=== PATIENT | female | born 1965 | race Caucasian/White ===

== ENCOUNTER 2021-12-11 07:06 | Day surgery (SDC) | payer MEDICARE, MEDICAID, SELFPAY ==
[2021-12-11 07:53] VITALS: BP 131/56; PULSE 95; RESP 18; TEMP 36.3; O2SAT 100; BMI 35.3
[2021-12-11] MEDS: Lactated Ringers 1,000 ML 15 ML IV (08:10)
--- NOTE | 2021-12-11 08:30 | COLBX_PTH ---
PATIENT: WALDO ROMAN LOC: EN U#:[id number] AGE/SX: 56/F ROOM: RE12/11/[address]: Dr. Cullen Arceo MD : 1965 BED: DIS: 12/11/2021 SPEC #: [id number] RECD: 12/11/21 10:36 STATUS: MITA CAGE #: [id number] KINZA: 12/11/21 08:[address]: Cullen Arceo DEPT: SURGICAL PATHOLOGY RECD BY: Diana Cantu Tissues: A - Descending colon B - Cecum, NOS C - Transverse colon D - Sigmoid colon biopsy Procedures: Surgery Specimen Level IV HEADER OPERATION: Colonoscopy ? open access (MAC) PRE-OP DIAGNOSIS: Screening TISSUE SUBMITTED: A ? Polyp at descending colon x3, B ? Cecal polyp x2, C ? Polyps transverse colon x2, D ? Sigmoid colon polyps x2 MICROSCOPIC DIAGNOSIS A. Polyp at descending colon x3, biopsy: Fragments of tubular adenoma (x3). B. Cecal polyp x2, biopsy: Fragments of tubular adenoma. Fragments of fecal material. C. Polyps transverse colon x2, biopsy: Fragments of tubular adenoma. Fragments of fecal material. D. Sigmoid colon polyps x2, biopsy: Hyperplastic polyp. Fragments of fecal material. VIRI:otis 12/12/2021 MICROSCOPIC DESCRIPTION Slides are reviewed. GROSS DESCRIPTION A - Received in fixative is one container labeled with the patient's name and designated polyp at descending colon x3. The specimen consists of multiple irregular fragments of light adams soft tissue that in aggregate measure 1.2 x 0.4 x 0.2 cm. The specimen is totally submitted in one cassette. B - Received in fixative is one container labeled with the patient's name and designated cecal polyps x2. The specimen consists of multiple irregular fragments of light adams soft tissue mixed with fecal material that in aggregate measure 1 x 0.2 x 0.1 cm. The specimen is totally submitted in one cassette. C - Received in fixative is one container labeled with the patient's name and designated transverse colon polyps. The specimen consists of multiple irregular fragments of light adams soft tissue mixed with fecal material that in aggregate measure 1.8 x 1 x 0.3 cm. The specimen is totally submitted in one cassette. D - Received in fixative is one container labeled with the patient's name and designated sigmoid colon polyp x2. The specimen consists of multiple irregular fragments of light adams soft tissue mixed with fecal material that in aggregate measure 1 x 0.5 x 0.3 cm. / SJ:otis 12/11/2021 TC:1 CPT: 67063 x4
--- NOTE | 2021-12-11 08:31 | HP.PCM_ITS ---
HPI - General HPI Narrative WALDO ROMAN, is a 56 F who presents for colonoscopy. The patient's last colonoscopy was about 20 years ago. The patient is having some abdominal pain and upset stomach. Patient does report cancer in her father side of the family. No cancer in the immediate family. PFSH Medical History Aneurysm Anxiety Arthritis Asthma Back pain Chronic cough Colonic polyp CPAP (continuous positive airway pressure) dependence Depression Diabetes Gastric reflux High cholesterol History of edema History of irregular heartbeat History of pain when walking Hypertension Loss of consciousness Multiple sclerosis Multiple sclerosis Post-menopausal Seizures Sleep apnea Smoker Home Medications aspirin 81 mg chewable tablet 81 mg PO DAILY 10/25/21 [History Last Taken Unknown] lisinopril 5 mg tablet 5 mg PO DAILY 10/25/21 [History Last Taken 12/11/21 04:30] metformin 500 mg tablet 1,000 mg PO BID 10/25/21 [History Last Taken Unknown] ocrelizumab 30 mg/mL intravenous solution (Ocrevus) 30 mg IV .Q6MO 10/25/21 [History Last Taken Unknown] atorvastatin 10 mg tablet 10 mg PO DAILY 12/04/21 [History Last Taken Unknown] bupropion HCl 300 mg 24 hr tablet, extended release 300 mg PO DAILY 12/04/21 [History Last Taken Unknown] famotidine 20 mg tablet 20 mg PO DAILY 12/04/21 [History Last Taken Unknown] glipizide 5 mg tablet 5 mg PO DAILY 12/04/21 [History Last Taken Unknown] indapamide 1.25 mg tablet 1.25 mg PO DAILY 12/04/21 [History Last Taken Unknown] lamotrigine 150 mg tablet 150 mg PO DAILY 12/04/21 [History Last Taken Unknown] omeprazole 40 mg capsule,delayed release 40 mg PO DAILY #60 caps 12/11/21 [Rx Last Taken Unknown] Allergy/AdvReac Type Severity Reaction Status Date / Time adhesive tape Allergy Severe Other Verified 12/11/21 07:50 oxycodone [From OxyContin] Allergy Severe Nausea/Vom/ Verified 12/11/21 07:49 Diarrhea Family History (Updated 10/25/21 @ 12:35 by Jami Dodson) Uncle Colon cancer Surgical History (Updated 12/04/21 @ 13:02 by Jessi Garay) History of hysterectomy History of tonsillectomy and adenoidectomy Hx of LASIK Hx of lumpectomy Status post clamping of cerebral aneurysm Tubal ligation status Social History Smoking Status: Current every day smoker tobacco type: cigarettes Past Medical/Surgical History Planned Operation Planned Operative Procedure/s: COLONOSCOPY Previous Hospitalizations/Surgeries HX Hospitalizations: No Any Problems With Anesthesia: No You/Your Family Experience Fever (Hyperthermia) With Anes: No Cholinesterase deficiency: No Cardiovascular Hx Hypertension: Yes (CONTROLLED ON MED) Respiratory Hx Sleep Apnea: Yes (DOESN'T USE) CPAP: No BIPAP: No Hx Respiratory Tract Infection/Cold (presently): No Result (for STOP score): Positive Smoking Status: Current every day smoker Neurological Does patient have nerve stimulator: No Reproduction : No Miscellaneous Recent Exposure to Contagious Disease: No Allergies adhesive tape Allergy (Severe, Verified 12/11/21 07:50) Other skin irritation oxycodone [From OxyContin] Allergy (Severe, Verified 12/11/21 07:49) Nausea/Vom/Diarrhea Discharge Is Pt Admitted From a [facility], or a [place] [facility]: No After D/C, Where Do you Plan to Go: Return Home Vital Signs Vital Signs Vital Signs: 12/11/21 07:51 12/11/21 07:53 Temperature 97.3 F L Temperature Source Temporal Pulse Rate 95 Respiratory Rate 18 Respiratory Pattern Normal Blood Pressure 131/56 H Blood Pressure Mean 81 Blood Pressure Source Monitor Blood Pressure Position Semi-Fowlers Blood Pressure Location Right Arm Pulse Ox 100 Oxygen Delivery Method Room Air Weight Weight: 193 lb Body Mass Index (BMI) 35.3 Physical Exam Const alert and oriented x3 Resp normal respiratory effort and normal air movement Cardio regular rate and regular rhythm GI soft to palpation, non-tender and non-distended Assessment & Plan Assessment/Plan (1) Encounter for screening for malignant neoplasm of colon: PLAN: I explained endoscopy in detail to the patient. I explained the risks including but not limited to stroke or heart attack with anesthesia, perforation of the GI tract, bleeding, infection. I explained that any of these could necessitate further emergency surgery. The patient understands and all questions were answered sufficiently. The patient wishes to proceed with procedure. Cullen Arceo MD Pager: [facility] [address] [place] [address], [address] [place] [address] Office: Surgery Risks - Colonoscopy Risks Include but are not Limited To: Risks include but are not limited to: Bleeding, perforation requiring further surgery, inability to complete colonoscopy requiring barium enema.
[2021-12-11 09:06] LABS: Bedside Glucose 259 mg/dL (74-106)
[2021-12-11 09:25] VITALS: BP 111/64; BP 115/60; PULSE 81; PULSE 83; RESP 15; RESP 16; TEMP 37.1; O2SAT 94; O2SAT 95
--- NOTE | 2021-12-11 09:25 | OP.COLON_ITS ---
Patient Name: Tasneem Castaneda Procedure Date: 12/11/2021 8:28 AM Date of : 1965 Age: 56 Procedure: Colonoscopy Indications: Screening for colorectal malignant neoplasm Providers: Cullen Arceo MD Medicines: Monitored Anesthesia Care Patient Profile: This is a 56 year old female. Refer to note in patient chart for documentation of history and physical. Last Colonoscopy: more than 10 years ago. Complications: No immediate complications. Estimated blood loss: Minimal. Procedure: Pre-Anesthesia Assessment: - Prior to the procedure, a History and Physical was performed, and patient medications and allergies were reviewed. The patient's tolerance of previous anesthesia was also reviewed. The risks and benefits of the procedure and the sedation options and risks were discussed with the patient. All questions were answered, and informed consent was obtained. Prior Anticoagulants: The patient has taken no previous anticoagulant or antiplatelet agents. After reviewing the risks and benefits, the patient was deemed in satisfactory condition to undergo the procedure. After I obtained informed consent, the scope was passed under direct vision. Throughout the procedure, the patient's blood pressure, pulse, and oxygen saturations were monitored continuously. The colonoscope was introduced through the anus and advanced to the cecum, identified by appendiceal orifice and ileocecal valve. The colonoscopy was performed without difficulty. The patient tolerated the procedure well. The quality of the bowel preparation was adequate to identify polyps. Scope In: 8:55:22 AM Scope Withdrawal Time 0 hours 16 minutes 20 seconds Scope Out: 9:20:21 AM Total Procedure Duration Time 0 hours 24 minutes 59 seconds Findings: Nine polyps were found in the rectum, sigmoid colon, descending colon, ascending colon and cecum. These polyps were removed with a hot snare. Resection and retrieval were complete. Impression: - Nine polyps in the rectum, in the sigmoid colon, in the descending colon, in the ascending colon and in the cecum, removed with a hot snare. Resected and retrieved. Recommendation: - Discharge patient to home. - Resume previous diet. - Continue present medications. - Await pathology results. - Repeat colonoscopy in 3 years for surveillance. Procedure Code(s): --- Professional --- 95395, 33, Colonoscopy, flexible; with removal of tumor(s), polyp(s), or other lesion(s) by snare technique Diagnosis Code(s): --- Professional --- Z12.11, Encounter for screening for malignant neoplasm of colon K62.1, Rectal polyp D12.5, Benign neoplasm of sigmoid colon D12.4, Benign neoplasm of descending colon D12.2, Benign neoplasm of ascending colon D12.0, Benign neoplasm of cecum CPT copyright 2017 [employer]. All rights reserved. The codes documented in this report are preliminary and upon picture framer review may be revised to meet current compliance requirements. Cullen Arceo MD 12/11/2021 9:25:01 AM This report has been signed electronically. Number of Addenda: 0 Note Initiated On: 12/11/2021 8:28 AM
[2021-12-11 09:30] VITALS: BP 115/60; BP 123/70; PULSE 74; RESP 15; O2SAT 94
[2021-12-11 09:35] VITALS: BP 115/60; BP 134/73; PULSE 71; RESP 15; O2SAT 97
[2021-12-11 09:40] VITALS: BP 115/60; BP 97/61; PULSE 70; RESP 18; TEMP 36.6; O2SAT 97
== END 2021-12-11 10:15 | disposition home or self-care (01) ==
LOC: EN 07:23 → AC 07:25
PROVIDERS: Visit Provider Surgery
PROC: 0DJD8ZZ Inspection of Lower Intestinal Tract, Via Natural or Artificial Opening Endoscopic (ICD-10-PCS; CPT 45378; principal; 2021-12-11 08:25)
DX: Z12.11 Encounter for screening for malignant neoplasm of colon (principal); D12.0 Benign neoplasm of cecum; D12.3 Benign neoplasm of transverse colon; D12.4 Benign neoplasm of descending colon; D12.5 Benign neoplasm of sigmoid colon; K62.1 Rectal polyp; K30 Functional dyspepsia; E11.9 Type 2 diabetes mellitus without complications; I10 Essential (primary) hypertension; E78.00 Pure hypercholesterolemia, unspecified; F17.210 Nicotine dependence, cigarettes, uncomplicated; Z79.82 Long term (current) use of aspirin; Z79.84 Long term (current) use of oral hypoglycemic drugs; Z79.899 Other long term (current) drug therapy; Z80.0 Family history of malignant neoplasm of digestive organs
CPT/HCPCS: 45385; 82962; 88305; J7120

== ENCOUNTER → 2022-11-14 | Outpatient (CLI) | payer MEDICARE, SELFPAY ==
--- NOTE | 2022-11-14 06:44 | MRI_ITS ---
INDICATION: MS EXAMINATION: MRI - MR Brain WO/W Contrast TECHNIQUE: Multiplanar and multisequence MR images of the brain were obtained without and with gadolinium. IV Contrast Dosage and Agent: 17 mL Clariscan COMPARISON: None. FINDINGS: BRAIN PARENCHYMA: Extensive bilateral white matter FLAIR hyperintensities in a Person''s finger distribution. There are also FLAIR hyperintensities along the corpus callosum. No abnormal enhancement. Susceptibility artifact in the leftward middle fossa, presumably aneurysm clip. No MRI evidence of hemorrhage. No evidence of acute infarct. No intracranial mass or mass effect. There is preservation of the heath/white matter interface. Normal sella turcica, pituitary gland, infundibular stalk, optic chiasm and hypothalamus. Posterior fossa structures are unremarkable. INTERNAL AUDITORY CANALS: The internal auditory canals appear normal. CSF SPACES: Appropriate for age. No hydrocephalus. Basal cisterns are patent. VASCULAR SYSTEM: Normal flow voids in the major intracranial circulation. CALVARIUM, SKULL BASE, PARANASAL SINUSES AND MASTOID AIR CELLS: Prior left pterional craniotomy. ORBITS: Both globes, extraocular muscles, optic nerves and retrobulbar fat appear unremarkable. MRI/Brain W/WO Contrast IMPRESSION: Extensive bilateral Person''s finger and corpus callosum white matter FLAIR hyperintensities are compatible with given diagnosis of multiple sclerosis. No enhancement to suggest acute demyelination. The optic nerves are not well assessed due to motion. Electronically Signed: Glenn Carcamo MD at 18:56 EDT ,
--- NOTE | 2022-11-14 06:44 | MRI_ITS ---
ACR Level 3 findings have been noted. An addendum which confirms receipt of the report will follow. INDICATION: MS EXAMINATION: MRI - MR Spine Cervical WO/W Contrast TECHNIQUE: Multiplanar and multisequence MR images of the cervical spine were performed. IV Contrast Dosage and Agent: None. COMPARISON: None. FINDINGS: VERTEBRAE: Normal vertebral bodies and posterior elements. VERTEBRAL ALIGNMENT: Normal, including the craniocervical junction and cervicothoracic junction. No spondylolisthesis. There is preservation of the normal cervical lordosis. CERVICAL SPINAL CORD: Unremarkable in signal and morphology. C2/C3: Normal disc height and morphology. Normal spinal canal and neuroforamina. C3/C4: Disc bulge. Normal spinal canal and neuroforamina. C4/C5: Disc bulge. Normal spinal canal and neuroforamina. C5/C6: Disc bulge. Normal spinal canal and neuroforamina. C6/C7: Disc bulge. Normal spinal canal and neuroforamina. C7/T1: Normal disc height and morphology. Normal spinal canal and neuroforamina. NECK SOFT TISSUES: Left thyroid nodules measure up to at least 1.1 cm. No prevertebral soft tissue swelling. There is no cervical adenopathy. MRI/Spine Cervical W/WO Contrast IMPRESSION: Left thyroid nodules measure up to at least 1.1 cm. Correlate with thyroid ultrasound. No abnormal signal in the cervical spinal cord. Multilevel disc bulge without neural foraminal or significant spinal canal stenosis. Electronically Signed: Glenn Carcamo MD at 20:43 EDT ,
[2022-11-14 12:14] LABS: CREATININE FINGERSTICK < 0.9 mg/dL (0.55-1.02); EGFR FINGERSTICK > 60 mL/min (>60)
== END | disposition home or self-care (01) ==
LOC: MRI 06:37
DX: G35 Multiple sclerosis (principal)
CPT/HCPCS: 70553; 72156; A9575

== ENCOUNTER → 2023-04-26 | Outpatient (CLI) | payer MEDICARE, SELFPAY ==
[2023-04-26 09:36] LABS: Absolute Lymphocyte Count 1.22 X10^3/uL (0.83-4.51); Absolute Neutrophil Count 6.2 X10^3/uL (2.0-7.7); Basophil# 0.07 X10^3/uL; Basophil% 0.9 % (0-1); Eosinophil# 0.19 X10^3/uL; Eosinophils% 2.3 % (0-5); Hematocrit 40.7 % (37-47); Hemoglobin 12.9 g/dL (12.0-15.0); Lymphocyte # 1.22 X10^3/ul (0.83-4.51); Mean Corp Hgb Conc 31.7 g/dL (32-36); Mean Corpuscular Hgb 26.2 pg (27.0-32.0); Mean Corpuscular Volume 82.7 fL (81-99); Mean Platelet Vol. 11.4 fl (6.2-12.0); Monocyte% 4.9 % (0-10); NRBC Flagged by Analyzer 0 % (0-5); Neutrophil % 76.4 % (47-70); Platelet Count 163 K/mm3 (150-450); RBC Distribution Width CV 14.9 % (11.6-14.6); RBC Distribution Width SD 44.6 fl (35.1-43.9); Red Blood Count 4.92 M/mm3 (4.2-5.4); White Blood Count 8.1 K/mm3 (4.4-11.0)
[2023-04-26 09:47] LABS: ALB/GLOB Ratio 0.8 RATIO (0.9-2.4); AST(SGOT) 16 U/L (15-37); Alanine Aminotransfer ALT/SGPT 26 U/L (13-56); Albumin, Serum 2.9 g/dL (3.2-5.0); Alkaline Phosphatase 133 U/L (45-117); Anion Gap 8 (5-15); BUN 11 mg/dL (7-18); BUN/Creat Ratio 14.3 RATIO (10-20); Calcium,Total 8.5 mg/dL (8.5-10.1); Chloride 105 mmol/L (98-107); Creatinine, Serum 0.77 mg/dL (0.55-1.02); EST Glomerular Filtration Rate 81 mL/min (>60); Est Glom Filt Rate - Afr Amer 99 mL/min (>60); Globulin 3.6 g/dL (2.2-4.2); Glucose 259 mg/dL (74-106); Potassium 3.6 mmol/L (3.5-5.1); Protein, Total 6.5 g/dL (6.4-8.2); Sodium Level 140 mmol/L (136-145)
[2023-05-01 07:09] LABS: Immunoglobulin A 331 mg/dL (87-352); Immunoglobulin E 53 IU/mL (6-495); Immunoglobulin G 676 mg/dL (586-1602); Immunoglobulin M 51 mg/dL (26-217)
== END | disposition home or self-care (01) ==
DX: Z79.899 Other long term (current) drug therapy (principal)
CPT/HCPCS: 36415; 80053; 82784; 82785; 85025

== ENCOUNTER 2024-03-16 19:03 | Observation (INO) | payer MEDICARE, SELFPAY ==
[2024-03-16 19:03] VITALS: BP 151/74; PULSE 77; RESP 17; TEMP 36.7; O2SAT 91; BMI 40.2
--- NOTE | 2024-03-16 19:30 | EDS_ITS ---
HPI HPI - Fall History of Present Illness Chief Complaint: Fall Detail of Chief Complaint: Fall with injury to left arm Informant: patient Narrative Narrative: Patient presents to the emergency department after sustaining a fall. Patient presents via EMS from home. Patient states that she was using a walker and trying to let her dog out when she let go of the walker to open the door she lost her balance and fell along the walker injuring her left shoulder. She denies striking her head or loss of consciousness. She denies neck pain. She denies chest pain or abdominal pain. Main pain is in the left shoulder and left elbow. [facility] Medical History (Updated 03/16/24 @ 21:[address] Alise Patterson, DO) Post-menopausal Depression Anxiety Arthritis Diabetes High cholesterol Back pain Loss of consciousness Seizures Multiple sclerosis Gastric reflux Smoker CPAP (continuous positive airway pressure) dependence Sleep apnea Asthma Chronic cough History of pain when walking History of edema Hypertension History of irregular heartbeat Colonic polyp Aneurysm Multiple sclerosis Home Medications ?Medication ?Instructions ?Recorded ?Last Taken ?Type aspirin 81 mg chewable tablet 81 mg PO DAILY 10/25/21 Unknown History lisinopril 5 mg tablet 5 mg PO DAILY 10/25/21 12/11/21 04:30 History metformin 500 mg tablet 1,000 mg PO BID 10/25/21 Unknown History ocrelizumab 30 mg/mL intravenous 30 mg IV .Q6MO 10/25/21 Unknown History solution (Ocrevus) atorvastatin 10 mg tablet 10 mg PO DAILY 12/04/21 Unknown History bupropion HCl 300 mg 24 hr tablet, 300 mg PO DAILY 12/04/21 Unknown History extended release famotidine 20 mg tablet 20 mg PO DAILY 12/04/21 Unknown History glipizide 5 mg tablet 5 mg PO DAILY 12/04/21 Unknown History indapamide 1.25 mg tablet 1.25 mg PO DAILY 12/04/21 Unknown History lamotrigine 150 mg tablet 150 mg PO DAILY 12/04/21 Unknown History omeprazole 40 mg capsule,delayed See Rx Instructions .Route 04/12/22 Unknown Rx release .COMPLEX #30 caps Allergy/AdvReac Type Severity Reaction Status Date / Time adhesive tape Allergy Severe Other Verified 12/11/21 07:50 oxycodone (From OxyContin) Allergy Severe Nausea/Vom/ Verified 12/11/21 07:49 Diarrhea Family History (Updated 10/25/21 @ 12:35 by Jami Dodson) Uncle Colon cancer Surgical History (Updated 12/04/21 @ 13:02 by Jessi Garay) Hx of LASIK Tubal ligation status Status post clamping of cerebral aneurysm Hx of lumpectomy History of hysterectomy History of tonsillectomy and adenoidectomy Social History Smoking Status: Current every day smoker tobacco type: cigarettes ROS ROS ED Review of Systems ROS Unobtainable: other Constitutional Constitutional ED: Reports lethargy; Denies chills, fever(s), sweats or weight loss Eyes Eyes: Denies blurry vision, change in vision or diplopia ENT ENT ED: Denies rhinorrhea or sore throat Cardiovascular Cardiovascular: Denies chest pain, orthopnea or racing heartbeat Respiratory/Chest Respiratory/Chest: Denies cough, dyspnea, dyspnea on exertion, orthopnea or sputum Gastrointestinal Gastrointestinal: Denies abdominal pain, diarrhea, nausea or vomiting Genitourinary Genitourinary ED: Denies dysuria, hematuria or urinary frequency Musculoskeletal Musculoskeletal: Reports other Details: Left shoulder and elbow pain ; Denies arthralgias, back pain, myalgias or neck pain Integumentary Denies abscess, Abrasions or rash Neurologic Neurologic: Denies headache(s) or weakness Psychiatric Psychiatric: Denies anxiety, depression or suicidal thoughts Endocrine Endocrinology: Denies polydipsia, polyphagia or polyuria Hematologic/Lymphatic Hematologic/Lymphatic: Denies easy bleeding, easy bruising or lymphadenopathy Allergic/Immunologic Allergic/Immunologic ED: Denies mouth swelling, tongue swelling or urticaria EXAM Physical Exam Const Vital Signs: 03/16/24 19:03 Temperature 98.1 F Temperature Source Oral Pulse Rate 77 Respiratory Rate 17 Blood Pressure 151/74 H Blood Pressure Mean 99 Pulse Ox 91 Oxygen Delivery Method Room Air Positive well nourished and well developed General Appearance ED: well developed and NAD HEENT Reports TM's clear and moist mucous membranes normocephalic and atraumatic; Negative for trauma or tenderness Tympanic Membrane ED: Yes TM's clear Eyes PERRL and EOMs intact bilaterally General Eye ED: Negative for pale conjunctiva or scleral icterus Neck no lymphadenopathy, supple and no JVD General: Negative for tenderness Chest Wall inspection of chest normal and palpation of chest normal Chest: Negative for tenderness Resp normal respiratory effort and clear to auscultation bilaterally Effort and Inspection: Negative for respiratory distress or pain with movement Auscultation: Negative for rhonchi, wheezes or diminished lung sounds Cardio regular rate, regular rhythm, S1 normal heart sound, S2 normal heart sound and no murmurs Peripheral Pulses: pulses 2+ throughout GI normal to inspection, nondistended, normoactive bowel sounds, soft to palpation, non-tender, non-distended and no masses Back/Spine no CVA tenderness and no thoracic nor lumbar tenderness Extremity Extremity Narrative: Left upper extremity-evaluation of the left shoulder reveals no obvious deformity. I do not appreciate a sulcus sign. Limited range of motion secondary to pain. Patient also with some diffuse tenderness about the left elbow. No obvious deformity. Somewhat limited range of motion secondary to pain. Neurovascular intact distally. No broken skin noted. General Extremety ED: Negative for edema General Extremity: Negative for edema Neuro oriented x3, CN's II-XII intact bilaterally, no sensory deficits noted and gait normal Sensorium / Orientation: awake, alert, oriented to person, oriented to place and oriented to time Motor Exam: strength 5/5 throughout and strength abnormal Psych mental status grossly normal Skin no rashes or lesions noted and no wounds MDM MDM MDM Narrative Medical decision making narrative: Patient presents after a fall and injury to her left arm. She was given a shot of morphine 4 mg IM and Zofran 4 mg IM. X-rays obtained showed a fracture of the proximal humerus. Initially discussed placing in a sling and sending home with . is not comfortable taking her home and she does not think she can manage as she normally uses a rollator to get around and now that she has a broken arm and can only use 1 arm is not felt that she will be able to care for self and her 's not can to be able to manage her activities of daily living. Will discuss with hospitalist to evaluate patient for admission. Radiography Diagnostic Testing: Clinical Impression(s) from Imaging Studies Elbow X-Ray 03/16/24 20:10 IMPRESSION: Negative left elbow. The lateral view is suboptimally positioned, mildly oblique. A repeat lateral view could be considered if there is strong clinical suspicion. Electronically Signed: Joi Flowers MD at 20:59 EDT , Shoulder X-Ray 03/16/24 20:10 IMPRESSION: Left humeral neck fracture. Electronically Signed: Joi Flowers MD at 21:02 EDT , Three-view x-rays of the left elbow obtained interpreted by myself as no evidence of fracture or dislocation. Radiology in agreement. 2 view x-rays of the left shoulder obtained interpreted by myself as proximal humerus fracture. Radiology in agreement. Discharge Plan Triage Chief Complaint: Fall ED Provider: Alise Patterson Dx/Rx/DC Orders Clinical Impression: Fall, Closed fracture of left proximal humerus, History of multiple sclerosis Prescriptions: No Action lisinopril 5 mg tablet 5 mg PO DAILY metformin 500 mg tablet 1,000 mg PO BID Ocrevus 30 mg/mL solution 30 mg IV .Q6MO Rx Instructions: Every 6 months aspirin 81 mg tablet,chewable 81 mg PO DAILY lamotrigine 150 mg tablet 150 mg PO DAILY atorvastatin 10 mg tablet 10 mg PO DAILY Patient Comments: TAKE 1 TABLET BY MOUTH EVERYDAY AT BEDTIME famotidine 20 mg tablet 20 mg PO DAILY Patient Comments: TAKE 1 TABLET BY MOUTH TWICE A DAY indapamide 1.25 mg tablet 1.25 mg PO DAILY Patient Comments: TAKE 1 TABLET BY MOUTH EVERY DAY IN THE MORNING FOR 30 DAYS glipizide 5 mg tablet 5 mg PO DAILY Patient Comments: TAKE 1 TABLET BY MOUTH EVERY DAY bupropion HCl 300 mg tablet extended release 24 hr 300 mg PO DAILY Patient Comments: TAKE 1 TABLET BY MOUTH EVERY DAY FOR MOOD ORAL ONCE A DAY 30 DAYS omeprazole 40 mg capsule,delayed release(DR/EC) See Rx Instructions .ROUTE .COMPLEX Qty: 30 1RF Dose Instruction: TAKE 1 CAPSULE BY MOUTH EVERY DAY Rx Instructions: TAKE 1 CAPSULE BY MOUTH EVERY DAY Primary Care Provider: YUDITH PERKINS Referrals: YUDITH PERKINS [Other] Print Language: Brazilian Disposition Disposition: [facility]
[2024-03-16] MEDS: Ondansetron 4 MG/2 ML Vial IM (20:05)
[2024-03-16] MEDS: Morphine 4 MG/ML Syringe IM (20:06)
--- NOTE | 2024-03-16 20:10 | RAD_ITS ---
We are attempting to reach an attending provider to discuss findings. An addendum with communication details will be sent when the communication is complete. EXAM: XR LEFT SHOULDER COMPLETE, 2 OR MORE VIEWS CLINICAL INDICATION: fall TECHNIQUE: Two or more views of the left shoulder. COMPARISON: No relevant prior studies available. FINDINGS: BONES/JOINTS: There is subcapital humeral neck fracture with subtle offset at the subcapital neck on the frontal view and mild dorsal rotation of the head on the lateral view. Mild fracture impaction. Also apparent fracture impaction on the inferior bony margin of the glenoid on the frontal view. No humeral head dislocation. No sclerotic or destructive changes observed. SOFT TISSUES: Unremarkable. No soft tissue swelling or gas. No radiopaque foreign body. RAD/Shoulder min 2 Views IMPRESSION: Left humeral neck fracture. Electronically Signed: Joi Flowers MD at 21:02 EDT ,
--- NOTE | 2024-03-16 20:10 | RAD_ITS ---
EXAM: XR LEFT ELBOW COMPLETE, 3 OR MORE VIEWS CLINICAL INDICATION: fall TECHNIQUE: Frontal, lateral and oblique views of the left elbow. COMPARISON: No relevant prior studies available. FINDINGS: BONES/JOINTS: Unremarkable. There is no displacement of the anterior or posterior fat pads. No acute fracture. No subluxation. Normal alignment. Preservation of the joint space. No destructive or sclerotic lesions. SOFT TISSUES: Unremarkable. No soft tissue swelling or gas. No radiopaque foreign body. RAD/Elbow min 3 Views IMPRESSION: Negative left elbow. The lateral view is suboptimally positioned, mildly oblique. A repeat lateral view could be considered if there is strong clinical suspicion. Electronically Signed: Joi Flowers MD at 20:59 EDT ,
[2024-03-16 21:03] VITALS: BP 142/72; PULSE 78; RESP 18; O2SAT 95
--- NOTE | 2024-03-16 21:24 | PCM.HP.STD ---
[facility] - General General Date of Admission: 03/16/24 Date of Service: 03/16/24 Chief Complaint: Left Arm Fracture after Fall. HPI Narrative WALDO ROMAN, is a 58 F with a past medical history of essential hypertension, hyperlipidemia, DM-2; of unknown control on Metformin and Glipizide, obesity; with BMI of 40.3 this admission, LINDA; on CPAP, history of MS; on Ocrelizumab, history of cerebral aneurysm; s/p clamping, history of seizures; on Lamotrigine, history of asthma, history of tobacco abuse; ~1 ppd x ~40 years with chronic cough, history of colon polyp, history of hysterectomy, history of lumpectomy, depression with anxiety, GERD and OA who presents to [facility] ER complaining of Left arm fracture after fall. Mrs. Roman reports her symptoms began approximately one hour prior to arrival when she was using her walker to let her dog out and when she let go of the walker she immediately lost her balance and fell onto her Left shoulder. She states her pain is focused between her Left shoulder and elbow. She denies LOC or significant head trauma with her fall. There was no associated fever, chills, nausea, vomiting, diarrhea, constipation, abdominal pain or chest pain. In the ER she was noted to have an X-ray of the LUE positive for a proximal humeral fracture with patient unable to return home because her cannot care for her in her current condition and she was then admitted to the general medical floor under observation status for ongoing care for a stay that is expected to be less than 2 midnights. [facility] Medical History Post-menopausal Depression Anxiety Arthritis Diabetes High cholesterol Back pain Loss of consciousness Seizures Multiple sclerosis Gastric reflux Smoker CPAP (continuous positive airway pressure) dependence Sleep apnea Asthma Chronic cough History of pain when walking History of edema Hypertension History of irregular heartbeat Colonic polyp Aneurysm Multiple sclerosis Home Medications ?Medication ?Instructions ?Recorded ?Last Taken ?Type aspirin 81 mg chewable tablet 81 mg PO DAILY 10/25/21 Unknown History ocrelizumab 30 mg/mL intravenous 30 mg IV .Q6MO 10/25/21 Unknown History solution (Ocrevus) atorvastatin 10 mg tablet 10 mg PO DAILY 12/04/21 Unknown History bupropion HCl 300 mg 24 hr tablet, 300 mg PO DAILY 12/04/21 Unknown History extended release indapamide 1.25 mg tablet 1.25 mg PO DAILY 12/04/21 Unknown History omeprazole 40 mg capsule,delayed See Rx Instructions .Route 04/12/22 Unknown Rx release .COMPLEX #30 caps glipizide 10 mg tablet 10 mg PO BID 03/16/24 Unknown History lisinopril 10 mg tablet 10 mg PO DAILY 03/16/24 Unknown History metformin 1,000 mg tablet 1,000 mg PO BID 03/16/24 Unknown History sitagliptin phosphate 100 mg 100 mg PO DAILY 03/16/24 Unknown History tablet (Januvia) venlafaxine 75 mg capsule,extended 75 mg PO DAILY 03/16/24 Unknown History release 24 hr Allergy/AdvReac Type Severity Reaction Status Date / Time adhesive tape Allergy Severe Other Verified 12/11/21 07:50 oxycodone (From OxyContin) Allergy Severe Nausea/Vom/ Verified 12/11/21 07:49 Diarrhea Family History Uncle Colon cancer Surgical History Hx of LASIK Tubal ligation status Status post clamping of cerebral aneurysm Hx of lumpectomy History of hysterectomy History of tonsillectomy and adenoidectomy Social History Smoking Status: Current every day smoker tobacco type: cigarettes ROS ROS Narrative Review of Systems: Constitutional: Patient denies fever or chills. Eyes: Patient denies changes in vision or discharge from eyes. ENT: Patient denies runny nose, sore throat or ear pain. Resp: Patient denies SOB or cough. CV: Patient denies chest pain, palpitations or heart racing. GI: Patient denies abdominal pain, nausea, vomiting or diarrhea. : Patient denies dysuria or hematuria. MSK: Patient admits to severe LUE pain between the Left shoulder and elbow as per HPI. Skin: Patient denies rash, abscess or jaundice. Psych: Patient denies symptoms of uncontrolled depression or anxiety. Neuro: Patient denies headache, paresthesias or focal neurologic weakness. Allergy: Patient denies lip swelling, tongue swelling or urticaria. Hematology: Patient denies easy bleeding or easy bruisability. Endocrinology: Patient denies polyuria, polydipsia and polyphagia. 14 point ROS other looney negative except for positives noted above. Vital Signs Vital Signs Vital Signs: 03/16/24 19:03 Temperature 98.1 F Temperature Source Oral Pulse Rate 77 Respiratory Rate 17 Blood Pressure 151/74 H Blood Pressure Mean 99 Pulse Ox 91 Oxygen Delivery Method Room Air Weight Weight: 220 lb 3.869 oz Body Mass Index (BMI) 40.2 Physical Exam Const alert, oriented x3 and no apparent distress Constitutional Narrative: Morbidly obese with chronically ill appearance. General Appearance: cooperative HEENT normocephalic, head/scalp atraumatic, hearing grossly normal bilaterally and moist oral mucous membranes Eyes PERRL and EOMs intact bilaterally Neck no lymphadenopathy and supple Resp normal respiratory effort, no retractions, no use of accessory muscles and clear to auscultation bilaterally Cardio regular rate and regular rhythm GI normal to inspection, nondistended, normoactive bowel sounds, soft to palpation, non-tender and non-distended GI Narrative: Morbidly obese. Extremity Extremity Narrative: LUE in sling with pain made worse with movement and palpation. Skin Skin Narrative: Patient has no evidence of rash or jaundice. Neuro oriented x3, CN's II-XII intact bilaterally, moves all extremities and no focal motor deficits Sensorium / Orientation: awake, alert, oriented to person, oriented to place and oriented to time Speech: speech normal Psych Mood & Affect: anxious Results Medical Records Data Attestation: I reviewed the patient's medical records Lab / Micro Data Attestation: I reviewed the patient's lab results. 03/16/24 21:26 03/16/24 21:26 Imaging Radiology Impression Elbow X-Ray 03/16/24 20:10 IMPRESSION: Negative left elbow. The lateral view is suboptimally positioned, mildly oblique. A repeat lateral view could be considered if there is strong clinical suspicion. Electronically Signed: Joi Flowers MD at 20:59 EDT , Shoulder X-Ray 03/16/24 20:10 IMPRESSION: Left humeral neck fracture. Electronically Signed: Joi Flowers MD at 21:02 EDT , ADDENDUM: 03/16/242119 IMPRESSION: Left humeral neck fracture. N.B. : The above Results were Read Back by Joi Flowers MD to Alise Patterson DO, and understanding confirmed on 03/16/2024 21:13:21 (ET). Electronically Signed: Jio Flowers MD at 21:02 EDT , Assessment & Plan Assessment/Plan (1) Closed fracture of left proximal humerus: QUALIFIERS: Encounter type: initial encounter Fracture morphology: unspecified fracture morphology Qualified Code(s): S42.202A - Unspecified fracture of upper end of left humerus, initial encounter for closed fracture (2) Fall: QUALIFIERS: Encounter type: initial encounter Qualified Code(s): W19.XXXA - Unspecified fall, initial encounter (3) History of multiple sclerosis: (4) Morbid obesity with BMI of 40.0-44.9, adult: (5) Hypertension: QUALIFIERS: Hypertension type: unspecified Qualified Code(s): I10 - Essential (primary) hypertension (6) Hyperlipidemia: QUALIFIERS: Hyperlipidemia type: unspecified Qualified Code(s): E78.5 - Hyperlipidemia, unspecified (7) Diabetes mellitus: QUALIFIERS: Diabetes mellitus type: type 2 Diabetes mellitus filler leaf cutter long insulin use: without filler leaf cutter long use Diabetes mellitus complication status: without complication Qualified Code(s): E11.9 - Type 2 diabetes mellitus without complications PLAN: Plan 1. Fall at home with LUE X-ray positive for a proximal humeral fracture with patient unable to return home because her cannot care for her in her current condition - Admit to general medical floor under observation status. Give Tylenol prn for [id number] (level 1-5/10) pain or fever. Give Morphine IV prn for severe (level 6-10/10) pain. We will consult orthopedics to see this patient on-rounds in the AM for further recommendation with help appreciated in advance. Finally, we will consult PT/OT and Case Management to see this patient on-rounds in the AM for further recommendations regarding possible subacute rehabilitation with help appreciated in advance. 2. History of MS; on Ocrelizumab with limited mobility at baseline complicating #1 - Continue current regimen. Patient uses a walker to mobilize at baseline and now that she can only use one arm we need a wheelchair. 3. Morbid obesity; with BMI of 40.3 this admission plus LINDA; on CPAP compounding #1 & #2 - Weight loss will be recommended. Resume nocturnal CPAP as previous. This complicates her case and may hamper her recovery. 4. History of cerebral aneurysm; s/p clamping along with seizures on Lamotrigine - Noted. Maintain current AED regimen as before. Give IV Ativan prn for breakthrough seizure activity. 5. Essential hypertension - Continue current medicines plus give prn IV Hydralazine for systolic blood pressure > 160 mmHg. 6. Hyperlipidemia - Resume statin. 7. DM-2; of unknown control on Metformin and Glipizide - ADA diet. FSBS q. AC/HS plus SSI. Check HgbA1c to objectively assess quality of diabetic control. 8. History of asthma - Stable with no evidence of acute flare. 9. History of tobacco abuse; ~1 ppd x ~40 years with chronic cough - Stable. Give nebulizers prn. 10. History of colon polyp - Noted. 11. History of hysterectomy - Noted. 12. History of lumpectomy - Noted. 13. Depression with anxiety - Resume current regimen. 14. GERD - Continue PPI. 15. OA - Stable. Give Tylenol prn. 16. DVT prophylaxis - Heparin 5,000 units sq BID plus SCD's. Total time: Approximately 70 minutes. Charges/Coding Visit Charges OBSV E&M: 29431 Observ/hosp same date L2
[2024-03-16 21:33] VITALS: BP 142/74; PULSE 85; RESP 16; TEMP 36.4; O2SAT 96
[2024-03-16 21:45] LABS: Absolute Lymphocyte Count 0.59 X10^3/uL (0.83-4.51); Absolute Neutrophil Count 14.7 X10^3/uL (2.0-7.7); Basophil# 0.07 X10^3/uL; Basophil% 0.4 % (0-1); Eosinophil# 0.05 X10^3/uL; Eosinophils% 0.3 % (0-5); Hemoglobin 14.9 g/dL (12.0-15.0); Lymphocyte # 0.59 X10^3/ul (0.83-4.51); Lymphocyte % 3.7 % (19-41); Mean Corp Hgb Conc 32.4 g/dL (32-36); Mean Corpuscular Hgb 25.2 pg (27.0-32.0); Mean Corpuscular Volume 77.7 fL (81-99); Mean Platelet Vol. 12.8 fl (6.2-12.0); Monocyte# 0.57 X10^3/uL; Monocyte% 3.5 % (0-10); NRBC Flagged by Analyzer 0 % (0-5); Neutrophil # 14.67 X10^3/uL (2.7-7.7); Neutrophil % 91.2 % (47-70); POSITIVE DIFFERENTIAL YES; Platelet Count 138 K/mm3 (150-450); RBC Distribution Width CV 14.3 % (11.6-14.6); Red Blood Count 5.92 M/mm3 (4.2-5.4); White Blood Count 16.1 K/mm3 (4.4-11.0)
[2024-03-16 22:03] LABS: Anion Gap 9 (5-15); BUN 12 mg/dL (7-18); BUN/Creat Ratio 15.2 RATIO (10-20); Calcium,Total 9.2 mg/dL (8.5-10.1); Chloride 95 mmol/L (98-107); Creatinine, Serum 0.79 mg/dL (0.55-1.02); EST Glomerular Filtration Rate 79 mL/min (>60); Est Glom Filt Rate - Afr Amer 95 mL/min (>60); Estimated Creatinine Clearance 83.71 ml/min; Glucose 400 mg/dL (74-106); Potassium 3.3 mmol/L (3.5-5.1); Sodium Level 133 mmol/L (136-145)
[2024-03-16 22:35] VITALS: BMI 38.4
[2024-03-16 22:46] VITALS: BP 154/93; PULSE 85; RESP 18; TEMP 36.6; O2SAT 98
[2024-03-16] MEDS: Morphine 2 MG/ML Syringe IV (22:59)
[2024-03-16] MEDS: 0.9% Normal Saline (1000mL) 1,000 ML 70 ML IV (23:04)
[2024-03-16] MEDS: Heparin Injection (Vial) 5,000 UNIT/ML VIAL 5000 UNIT SC (23:08)
[2024-03-16] MEDS: Insulin Lispro 100 UNIT/ML INSULN.PEN SC (23:13)
[2024-03-16 23:27] LABS: Bedside Glucose 409 mg/dL (74-106)
[2024-03-17 05:45] VITALS: BP 170/76; PULSE 76; RESP 18; TEMP 35.7; O2SAT 95
[2024-03-17] MEDS: Morphine 2 MG/ML Syringe IV ×3 (05:45→21:26)
[2024-03-17] MEDS: Insulin Lispro 100 UNIT/ML INSULN.PEN SC ×4 (05:45→21:27)
[2024-03-17 06:10] LABS: Bedside Glucose 327 mg/dL (74-106)
[2024-03-17 07:10] LABS: Absolute Lymphocyte Count 1.15 X10^3/uL (0.83-4.51); Absolute Neutrophil Count 9.5 X10^3/uL (2.0-7.7); Basophil# 0.05 X10^3/uL; Basophil% 0.4 % (0-1); Eosinophil# 0.13 X10^3/uL; Eosinophils% 1.1 % (0-5); Hematocrit 44.7 % (37-47); Hemoglobin 14.4 g/dL (12.0-15.0); Lymphocyte # 1.15 X10^3/ul (0.83-4.51); Mean Corp Hgb Conc 32.2 g/dL (32-36); Mean Corpuscular Hgb 25.7 pg (27.0-32.0); Mean Corpuscular Volume 79.7 fL (81-99); Mean Platelet Vol. 12.4 fl (6.2-12.0); Monocyte# 0.63 X10^3/uL; Monocyte% 5.5 % (0-10); NRBC Flagged by Analyzer 0 % (0-5); Neutrophil # 9.52 X10^3/uL (2.7-7.7); Neutrophil % 82.4 % (47-70); Platelet Count 144 K/mm3 (150-450); RBC Distribution Width CV 14.3 % (11.6-14.6); RBC Distribution Width SD 41.1 fl (35.1-43.9); Red Blood Count 5.61 M/mm3 (4.2-5.4); White Blood Count 11.6 K/mm3 (4.4-11.0)
[2024-03-17] MEDS: Aspirin 81 MG TAB.CHEW PO (07:46)
[2024-03-17] MEDS: Indapamide 2.5 MG Tablet 1.25 MG PO (07:46)
[2024-03-17] MEDS: Famotidine 20 MG Tablet PO (07:46)
[2024-03-17] MEDS: lamoTRIgine 150 MG Tablet PO (07:46)
[2024-03-17] MEDS: Lisinopril 10 MG Tablet PO (07:47)
[2024-03-17] MEDS: Pantoprazole Sodium 40 MG Tablet PO (07:47)
[2024-03-17] MEDS: Heparin Injection (Vial) 5,000 UNIT/ML VIAL 5000 UNIT SC ×2 (07:47→21:26)
[2024-03-17] MEDS: buPROPion (XL) 300 MG TABLET.XL PO (07:47)
[2024-03-17 08:05] VITALS: PULSE 75
[2024-03-17 08:07] VITALS: BP 163/90; PULSE 75; RESP 16; TEMP 36.3; O2SAT 93
[2024-03-17 08:09] LABS: AST(SGOT) 18 U/L (15-37); Alanine Aminotransfer ALT/SGPT 21 U/L (13-56); Alkaline Phosphatase 152 U/L (45-117); Anion Gap 7 (5-15); BUN 11 mg/dL (7-18); BUN/Creat Ratio 16.4 RATIO (10-20); Calcium,Total 9.1 mg/dL (8.5-10.1); Chloride 97 mmol/L (98-107); Creatinine, Serum 0.67 mg/dL (0.55-1.02); EST Glomerular Filtration Rate 95 mL/min (>60); Est Glom Filt Rate - Afr Amer 115 mL/min (>60); Estimated Creatinine Clearance 99.82 ml/min; Globulin 3.1 g/dL (2.2-4.2); Glucose 307 mg/dL (74-106); Magnesium 1.5 mg/dL (1.6-2.6); Phosphorus 2.7 mg/dL (2.5-4.9); Protein, Total 6.1 g/dL (6.4-8.2); Sodium Level 134 mmol/L (136-145)
[2024-03-17 08:29] LABS: Hemoglobin A1c 10.1 % (3.8-5.6)
--- NOTE | 2024-03-17 08:40 | PCM.PN.HOSP ---
Reason for Visit Reason for Visit: Diagnoses Type 2 diabetes mellitus without complications (03/16/24) Morbid (severe) obesity due to excess calories (03/16/24) Hyperlipidemia, unspecified (03/16/24) Multiple sclerosis (03/16/24) Essential (primary) hypertension (03/16/24) Unspecified fracture of upper end of left humerus, initial encounter for closed fracture (03/16/24) Unspecified fall, initial encounter (03/16/24) Body mass index [BMI] 40.0-44.9, adult (03/16/24) Objective Data Objective Data Vital Signs: Vital Signs Temp Pulse Resp BP Pulse Ox O2 Del Method 36.3 C L 75 16 163/90 H 93 Room Air 03/17/24 08:07 03/17/24 08:07 03/17/24 08:07 03/17/24 08:07 03/17/24 08:07 03/17/24 08:07 Oxygen Delivery Method Room Air Weight: 98.43 kg Body Mass Index (BMI) 38.4 Intake & Output: Intake and Output for Last 24 Hours 03/15/24 03/16/24 03/17/24 23:59 23:59 23:59 Output Total 400 / 400 100 / 100 Balance -400 / -400 -100 / -100 Lab / Micro Data 03/17/24 06:07 03/17/24 06:07 Labs: Laboratory Results - last 24 hr 03/16/24 21:26: WBC 16.1 H, RBC 5.92 H, Hgb 14.9, Hct 46.0, MCV 77.7 L, MCH 25.2 L, MCHC 32.4, RDW Std Deviation 40.0, RDW Coeff of William 14.3, Plt Count 138 L, MPV 12.8 H, Immature Gran % (Auto) 0.900, Neut % (Auto) 91.2 H, Lymph % (Auto) 3.7 L, [place] % (Auto) 3.5, Eos % (Auto) 0.3, Baso % (Auto) 0.4, Absolute Neuts (auto) 14.7 H, Absolute Lymphs (auto) 0.59 L, Nucleated RBC % 0, Sodium 133 L, Potassium 3.3 L, Chloride 95 L, Carbon Dioxide 29.0, Anion Gap 9, BUN 12, Creatinine 0.79, Estim Creat Clear Calc 83.71, Est GFR (MDRD) Af Amer 95, Est GFR (MDRD) Non-Af 79, BUN/Creatinine Ratio 15.2, Glucose 400 H, Calcium 9.2 03/16/24 23:06: POC Glucose 409 H 03/17/24 05:50: POC Glucose 327 H 03/17/24 06:07: WBC 11.6 H, RBC 5.61 H, Hgb 14.4, Hct 44.7, MCV 79.7 L, MCH 25.7 L, MCHC 32.2, RDW Std Deviation 41.1, RDW Coeff of William 14.3, Plt Count 144 L, MPV 12.4 H, Immature Gran % (Auto) 0.600, Neut % (Auto) 82.4 H, Lymph % (Auto) 10.0 L, [place] % (Auto) 5.5, Eos % (Auto) 1.1, Baso % (Auto) 0.4, Absolute Neuts (auto) 9.5 H, Absolute Lymphs (auto) 1.15, Nucleated RBC % 0, Sodium 134 L, Potassium 3.0 L, Chloride 97 L, Carbon Dioxide 30.0, Anion Gap 7, BUN 11, Creatinine 0.67, Estim Creat Clear Calc 99.82, Est GFR (MDRD) Af Amer 115, Est GFR (MDRD) Non-Af 95, BUN/Creatinine Ratio 16.4, Glucose 307 H, Hemoglobin A1c 10.1 H, Calcium 9.1, Phosphorus 2.7, Magnesium 1.5 L, Total Bilirubin 0.60, AST 18, ALT 21, Alkaline Phosphatase 152 H, Total Protein 6.1 L, Albumin 3.0 L, Globulin 3.1, Albumin/Globulin Ratio 1.0, TSH 2.030 Radiography Diagnostic Testing: Radiology Impression Elbow X-Ray 03/16/24 20:10 IMPRESSION: Negative left elbow. The lateral view is suboptimally positioned, mildly oblique. A repeat lateral view could be considered if there is strong clinical suspicion. Electronically Signed: Joi Flowers MD at 20:59 EDT Reading Location ID and State: [facility] / [place] Tel , Service support , Shoulder X-Ray 03/16/24 20:10 IMPRESSION: Left humeral neck fracture. Electronically Signed: Joi Flowers MD at 21:02 EDT , ADDENDUM: 03/16/242119 IMPRESSION: Left humeral neck fracture. N.B. : The above Results were Read Back by Joi Flowers MD to Alise Patterson DO, and understanding confirmed on 03/16/2024 21:13:21 (ET). Electronically Signed: Joi Flowers MD at 21:02 EDT , Assessment & Plan Assessment/Plan (1) Closed fracture of left proximal humerus: QUALIFIERS: Encounter type: initial encounter Fracture morphology: unspecified fracture morphology Qualified Code(s): S42.202A - Unspecified fracture of upper end of left humerus, initial encounter for closed fracture (2) Fall: QUALIFIERS: Encounter type: initial encounter Qualified Code(s): W19.XXXA - Unspecified fall, initial encounter (3) History of multiple sclerosis: (4) Morbid obesity with BMI of 40.0-44.9, adult: (5) Hypertension: QUALIFIERS: Hypertension type: unspecified Qualified Code(s): I10 - Essential (primary) hypertension (6) Hyperlipidemia: QUALIFIERS: Hyperlipidemia type: unspecified Qualified Code(s): E78.5 - Hyperlipidemia, unspecified (7) Diabetes mellitus: QUALIFIERS: Diabetes mellitus type: type 2 Diabetes mellitus 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 Debility Multifactorial due to multiple sclerosis, humeral fracture. PT OT evaluate and treat. Anticipate the patient may require placement. Hypokalemia/hypomagnesemia Replace and recheck Chronic conditions: MS: on Ocrelizumab Obesity class III: Complicates care and recovery History of cerebral aneurysm; s/p clamping along with seizures on Lamotrigine - Noted. Maintain current AED regimen as before. Give IV Ativan prn for breakthrough seizure activity. Essential hypertension - Continue current medicines plus give prn IV Hydralazine for systolic blood pressure > 160 mmHg. Hyperlipidemia - Resume statin. DM-2: Uncontrolled. This is despite metformin and glipizide. Will start the patient on glargine. asthma - Stable with no evidence of acute flare. VTE prophylaxis with subcu heparin Disposition: Anticipate patient requiring senior living facility given her previous poor performance status now with a left humerus fracture.
[2024-03-17] MEDS: Magnesium Sulfate 2 GM in Dextrose 5%-Water (100mL Bag) 100 ML IV (09:42)
[2024-03-17] MEDS: Potassium Chloride Oral Tablet 20 MEQ 60 MEQ PO (09:51)
[2024-03-17] MEDS: Insulin Glargine-YFGN 100 UNIT/ML Pen 10 UNIT SC ×2 (10:13→21:27)
[2024-03-17] MEDS: Menthol/Lanolin/Calamine/Znox 113 GM Tube 1 APPLIC TOPICAL ×2 (10:13→21:27)
[2024-03-17] MEDS: Nystatin Powder 15gm Bottle 1 APPLIC TOPICAL ×2 (10:14→21:27)
[2024-03-17 11:30] LABS: Bedside Glucose 473 mg/dL (74-106)
--- NOTE | 2024-03-17 11:56 | PCM.CONS.GEN ---
Assessment & Plan Assessment/Plan (1) Closed fracture of left proximal humerus: QUALIFIERS: Encounter type: initial encounter Fracture morphology: unspecified fracture morphology Qualified Code(s): S42.202A - Unspecified fracture of upper end of left humerus, initial encounter for closed fracture PLAN: Plan Nondisplaced left surgical neck fracture. Nonweightbearing left upper extremity encourage elbow wrist finger range of motion pendulum exercises demonstrated when pain allows no active shoulder range of motion passive range of motion is okay. Follow-up in 2 weeks with repeat x-ray. Ice and pain control. HPI Consult Data Date of Consult: 03/17/24 HPI Narrative HPI Narrative: WALDO ROMAN, is a 58 obese diabetic multiple sclerosis F who presents after ground-level fall hitting left shoulder against a door jam immediately had pain presented to the emergency room x-rays taken demonstrating a nondisplaced surgical neck fracture admitted. Denies other injury or complaints [facility] Medical History Post-menopausal Depression Anxiety Arthritis Diabetes High cholesterol Back pain Loss of consciousness Seizures Multiple sclerosis Gastric reflux Smoker CPAP (continuous positive airway pressure) dependence Sleep apnea Asthma Chronic cough History of pain when walking History of edema Hypertension History of irregular heartbeat Colonic polyp Aneurysm Multiple sclerosis Home Medications ?Medication ?Instructions ?Recorded ?Last Taken ?Type aspirin 81 mg chewable tablet 81 mg PO DAILY 10/25/21 Unknown History ocrelizumab 30 mg/mL intravenous 30 mg IV .Q6MO 10/25/21 Unknown History solution (Ocrevus) atorvastatin 10 mg tablet 10 mg PO DAILY 12/04/21 Unknown History bupropion HCl 300 mg 24 hr tablet, 300 mg PO DAILY 12/04/21 Unknown History extended release indapamide 1.25 mg tablet 1.25 mg PO DAILY 12/04/21 Unknown History omeprazole 40 mg capsule,delayed See Rx Instructions .Route 04/12/22 Unknown Rx release .COMPLEX #30 caps glipizide 10 mg tablet 10 mg PO BID 03/16/24 Unknown History lisinopril 10 mg tablet 10 mg PO DAILY 03/16/24 Unknown History metformin 1,000 mg tablet 1,000 mg PO BID 03/16/24 Unknown History sitagliptin phosphate 100 mg 100 mg PO DAILY 03/16/24 Unknown History tablet (Januvia) venlafaxine 75 mg capsule,extended 75 mg PO DAILY 03/16/24 Unknown History release 24 hr Allergy/AdvReac Type Severity Reaction Status Date / Time adhesive tape Allergy Severe Other Verified 12/11/21 07:50 oxycodone (From OxyContin) Allergy Severe Nausea/Vom/ Verified 12/11/21 07:49 Diarrhea Family History Uncle Colon cancer Surgical History Hx of LASIK Tubal ligation status Status post clamping of cerebral aneurysm Hx of lumpectomy History of hysterectomy History of tonsillectomy and adenoidectomy Social History Smoking Status: Current every day smoker tobacco type: cigarettes Physical Exam Const alert and oriented x3 General Appearance: cooperative and comfortable Extremity Extremity Narrative: Left shoulder no open wounds no significant ecchymosis she is morbidly obese it is difficult to assess swelling compartments soft neurovascular intact radial median ulnar nerves axillary nerve palpable radial pulse Lab / Micro Data 03/17/24 06:07 03/17/24 06:07 Labs: Laboratory Results - last 24 hr 03/16/24 21:26: WBC 16.1 H, RBC 5.92 H, Hgb 14.9, Hct 46.0, MCV 77.7 L, MCH 25.2 L, MCHC 32.4, RDW Std Deviation 40.0, RDW Coeff of William 14.3, Plt Count 138 L, MPV 12.8 H, Immature Gran % (Auto) 0.900, Neut % (Auto) 91.2 H, Lymph % (Auto) 3.7 L, [place] % (Auto) 3.5, Eos % (Auto) 0.3, Baso % (Auto) 0.4, Absolute Neuts (auto) 14.7 H, Absolute Lymphs (auto) 0.59 L, Nucleated RBC % 0, Sodium 133 L, Potassium 3.3 L, Chloride 95 L, Carbon Dioxide 29.0, Anion Gap 9, BUN 12, Creatinine 0.79, Estim Creat Clear Calc 83.71, Est GFR (MDRD) Af Amer 95, Est GFR (MDRD) Non-Af 79, BUN/Creatinine Ratio 15.2, Glucose 400 H, Calcium 9.2 03/16/24 23:06: POC Glucose 409 H 03/17/24 05:50: POC Glucose 327 H 03/17/24 06:07: WBC 11.6 H, RBC 5.61 H, Hgb 14.4, Hct 44.7, MCV 79.7 L, MCH 25.7 L, MCHC 32.2, RDW Std Deviation 41.1, RDW Coeff of William 14.3, Plt Count 144 L, MPV 12.4 H, Immature Gran % (Auto) 0.600, Neut % (Auto) 82.4 H, Lymph % (Auto) 10.0 L, [place] % (Auto) 5.5, Eos % (Auto) 1.1, Baso % (Auto) 0.4, Absolute Neuts (auto) 9.5 H, Absolute Lymphs (auto) 1.15, Nucleated RBC % 0, Sodium 134 L, Potassium 3.0 L, Chloride 97 L, Carbon Dioxide 30.0, Anion Gap 7, BUN 11, Creatinine 0.67, Estim Creat Clear Calc 99.82, Est GFR (MDRD) Af Amer 115, Est GFR (MDRD) Non-Af 95, BUN/Creatinine Ratio 16.4, Glucose 307 H, Hemoglobin A1c 10.1 H, Calcium 9.1, Phosphorus 2.7, Magnesium 1.5 L, Total Bilirubin 0.60, AST 18, ALT 21, Alkaline Phosphatase 152 H, Total Protein 6.1 L, Albumin 3.0 L, Globulin 3.1, Albumin/Globulin Ratio 1.0, TSH 2.030 03/17/24 11:04: POC Glucose 473 H* Imaging Radiology Impression Elbow X-Ray 03/16/24 20:10 IMPRESSION: Negative left elbow. The lateral view is suboptimally positioned, mildly oblique. A repeat lateral view could be considered if there is strong clinical suspicion. Electronically Signed: Joi Flowers MD at 20:59 EDT , Shoulder X-Ray 03/16/24 20:10 IMPRESSION: Left humeral neck fracture. Electronically Signed: Joi Flowers MD at 21:02 EDT , ADDENDUM: 03/16/242119 IMPRESSION: Left humeral neck fracture. N.B. : The above Results were Read Back by Joi Flowers MD to Alise Patterson DO, and understanding confirmed on 03/16/2024 21:13:21 (ET). Electronically Signed: Joi Flowers MD at 21:02 EDT ,
[2024-03-17 14:00] VITALS: BP 156/65; PULSE 83; RESP 16; TEMP 37; O2SAT 92
--- NOTE | 2024-03-17 14:54 | CHAPLAIN ---
Type of Pastoral Visit _x__ Initial Visit ___ Follow-up Visit ___ On-call Visit ___ General Patient Visit ___ Spiritual Assessment ___ Family Conference ___ Bereavement ___ Rapid Response ___ Code Blue ___ Other (describe below) Pastoral Care Referral From _x__ Patient ___ Family ___ Nurse ___ Physician ___ Drug Abuse Resistance Education Officer ___ Hydro Electric Station Operator ___ Other (describe below) Sacrament/Intervention _x__ Active listening ___ Anointing ___ Quaker ___ Bereavement ___ Communion _x__ Caterina exploration ___ ___ Life review _x__ Prayer ___ Reconciliation ___ Sacrament of Sick _x__ Supportive presence ___ Wedding ___ Other (describe below) Pastoral Comments patient is welcoming and invites 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
[2024-03-17] MEDS: 0.9% Normal Saline (1000mL) 1,000 ML 70 ML IV (15:20)
--- NOTE | 2024-03-17 15:53 | CASEMGMT ---
Social Work- A list of SNF providers including quality and resource use data and consistent with the patient?s preferred geographic region, medical needs, and insurance network were provided from the [employer]. LACIE Ervin
--- NOTE | 2024-03-17 16:27 | CASEMGMT ---
Social Work- SW met with pt to discuss pt preference at d/c. Pt states that she would prefer HHC at d/c, but will talk to her this evening. SW will remain available to follow. LACIE Ervin
--- NOTE | 2024-03-17 16:31 | CASEMGMT ---
Met with patient to complete SNYDER form. SNYDER form explained to patient who voiced understanding and signed form. Original form placed in pt?s chart and copy provided to patient. Chelsea Herrera, Discharge Planning Asst
[2024-03-17 16:45] LABS: Bedside Glucose 344 mg/dL (74-106)
[2024-03-17 19:23] VITALS: O2SAT 92
[2024-03-17 19:53] VITALS: BP 150/86; PULSE 81; RESP 18; TEMP 36.6; O2SAT 94
[2024-03-17] MEDS: Atorvastatin Calcium 10 MG Tablet PO (21:26)
[2024-03-17] MEDS: 0.9% Saline Lock 10 ML Syringe IV (21:26)
[2024-03-17 22:18] LABS: Bedside Glucose 369 mg/dL (74-106)
[2024-03-18 01:53] VITALS: BP 166/83; PULSE 79; RESP 16; TEMP 36.7; O2SAT 95
[2024-03-18] MEDS: Morphine 2 MG/ML Syringe IV ×2 (04:21→19:52)
[2024-03-18] MEDS: Acetaminophen 325 MG Tablet 650 MG PO ×3 (04:23→19:51)
[2024-03-18 06:00] VITALS: BMI 38.4
[2024-03-18] MEDS: Insulin Lispro 100 UNIT/ML INSULN.PEN SC ×4 (06:00→21:21)
[2024-03-18] MEDS: 0.9% Normal Saline (1000mL) 1,000 ML 70 ML IV ×2 (06:01→19:49)
[2024-03-18 06:48] LABS: Bedside Glucose 307 mg/dL (74-106)
[2024-03-18 07:03] LABS: Absolute Lymphocyte Count 0.78 X10^3/uL (0.83-4.51); Absolute Neutrophil Count 7.4 X10^3/uL (2.0-7.7); Basophil# 0.05 X10^3/uL; Basophil% 0.6 % (0-1); Eosinophil# 0.14 X10^3/uL; Eosinophils% 1.6 % (0-5); Hematocrit 41.6 % (37-47); Hemoglobin 13.5 g/dL (12.0-15.0); Lymphocyte # 0.78 X10^3/ul (0.83-4.51); Lymphocyte % 8.7 % (19-41); Mean Corp Hgb Conc 32.5 g/dL (32-36); Mean Corpuscular Hgb 25.6 pg (27.0-32.0); Mean Corpuscular Volume 78.8 fL (81-99); Mean Platelet Vol. 12.7 fl (6.2-12.0); Monocyte# 0.55 X10^3/uL; Monocyte% 6.1 % (0-10); NRBC Flagged by Analyzer 0 % (0-5); Neutrophil % 82.4 % (47-70); Platelet Count 101 K/mm3 (150-450); RBC Distribution Width CV 14.5 % (11.6-14.6); Red Blood Count 5.28 M/mm3 (4.2-5.4)
[2024-03-18 07:14] LABS: Anion Gap 7 (5-15); BUN 11 mg/dL (7-18); BUN/Creat Ratio 18.2 RATIO (10-20); Calcium,Total 8.7 mg/dL (8.5-10.1); Chloride 101 mmol/L (98-107); Creatinine, Serum 0.61 mg/dL (0.55-1.02); EST Glomerular Filtration Rate 107 mL/min (>60); Est Glom Filt Rate - Afr Amer 129 mL/min (>60); Estimated Creatinine Clearance 109.64 ml/min; Glucose 292 mg/dL (74-106); Magnesium 1.6 mg/dL (1.6-2.6); Phosphorus 2.4 mg/dL (2.5-4.9); Potassium 3.5 mmol/L (3.5-5.1); Sodium Level 135 mmol/L (136-145)
[2024-03-18 08:00] VITALS: BP 149/78; PULSE 72; RESP 16; TEMP 36.5; O2SAT 97
[2024-03-18] MEDS: lamoTRIgine 150 MG Tablet PO (08:21)
[2024-03-18] MEDS: Pantoprazole Sodium 40 MG Tablet PO (08:21)
[2024-03-18] MEDS: Indapamide 2.5 MG Tablet 1.25 MG PO (08:21)
[2024-03-18] MEDS: Lisinopril 10 MG Tablet PO (08:21)
[2024-03-18] MEDS: Famotidine 20 MG Tablet PO (08:22)
[2024-03-18] MEDS: Aspirin 81 MG TAB.CHEW PO (08:22)
--- NOTE | 2024-03-18 08:24 | PN.HOSP_ITS ---
Reason for Visit Reason for Visit: Diagnoses Type 2 diabetes mellitus without complications (03/16/24) Morbid (severe) obesity due to excess calories (03/16/24) Hyperlipidemia, unspecified (03/16/24) Multiple sclerosis (03/16/24) Essential (primary) hypertension (03/16/24) Unspecified fracture of upper end of left humerus, initial encounter for closed fracture (03/16/24) Unspecified fall, initial encounter (03/16/24) Body mass index [BMI] 40.0-44.9, adult (03/16/24) Subjective Subjective Patient now agreeable to going to a residential facility. Objective Data Objective Data Vital Signs: Vital Signs Temp Pulse Resp BP Pulse Ox O2 Del Method 36.7 C 79 16 166/83 H 95 Room Air 03/18/24 01:53 03/18/24 01:53 03/18/24 01:53 03/18/24 01:53 03/18/24 01:53 03/18/24 05:00 Oxygen Delivery Method Room Air Weight: 98.43 kg Body Mass Index (BMI) 38.4 Intake & Output: Intake and Output for Last 24 Hours 03/16/24 03/17/24 03/18/24 23:59 23:59 23:59 Intake Total 1933.34 / 1933.34 1200 / 1200 Output Total 400 / 400 850 / 850 900 / 900 Balance -400 / -400 1083.34 / 1083.34 300 / 300 Lab / Micro Data 03/18/24 06:41 03/18/24 06:41 Labs: Laboratory Results - last 24 hr 03/17/24 06:07: Hemoglobin A1c 10.1 H 03/17/24 11:04: POC Glucose 473 H* 03/17/24 15:47: POC Glucose 344 H 03/17/24 21:24: POC Glucose 369 H 03/18/24 05:58: POC Glucose 307 H 03/18/24 06:41: WBC 9.0, RBC 5.28, Hgb 13.5, Hct 41.6, MCV 78.8 L, MCH 25.6 L, MCHC 32.5, RDW Std Deviation 41.0, RDW Coeff of William 14.5, Plt Count 101 L, MPV 12.7 H, Immature Gran % (Auto) 0.600, Neut % (Auto) 82.4 H, Lymph % (Auto) 8.7 L , Jenkins % (Auto) 6.1, Eos % (Auto) 1.6, Baso % (Auto) 0.6, Absolute Neuts (auto) 7.4, Absolute Lymphs (auto) 0.78 L, Nucleated RBC % 0, Sodium 135 L, Potassium 3.5, Chloride 101, Carbon Dioxide 28.0, Anion Gap 7, BUN 11, Creatinine 0.61, Estim Creat Clear Calc 109.64, Est GFR (MDRD) Af Amer 129, Est GFR (MDRD) Non-Af 107, BUN/Creatinine Ratio 18.2, Glucose 292 H, Calcium 8.7, Phosphorus 2.4 L, Magnesium 1.6 Physical Exam Const alert and no apparent distress HEENT head/scalp atraumatic and moist oral mucous membranes Resp normal respiratory effort and no retractions Extremity Extremity Narrative: Left arm in sling. Assessment & Plan Assessment/Plan (1) Closed fracture of left proximal humerus: QUALIFIERS: Encounter type: initial encounter Fracture morphology: unspecified fracture morphology Qualified Code(s): S42.202A - Unspecified fracture of upper end of left humerus, initial encounter for closed fracture (2) Fall: QUALIFIERS: Encounter type: initial encounter Qualified Code(s): W19.XXXA - Unspecified fall, initial encounter (3) History of multiple sclerosis: (4) Morbid obesity with BMI of 40.0-44.9, adult: (5) Hypertension: QUALIFIERS: Hypertension type: unspecified Qualified Code(s): I10 - Essential (primary) hypertension (6) Hyperlipidemia: QUALIFIERS: Hyperlipidemia type: unspecified Qualified Code(s): E 78.5 - Hyperlipidemia, unspecified (7) Diabetes mellitus: QUALIFIERS: Diabetes mellitus complication status: without complication Diabetes mellitus [facility] insulin use: without intermediate accountant use D iabetes mellitus type: type 2 Qualified Code(s): E11.9 - Type 2 diabetes mellitus without complications PLAN: Plan Left proximal humeral fracture * NWB * ortho recs per Dr. Valenzuela: Nonweightbearing left upper extremity encourage elbow wrist finger range of motion pendulum exercises demonstrated when pain allows no active shoulder range of motion passive range of motion is okay. Follow-up in 2 weeks with repeat x-ray. Ice and pain control. Debility * Multifactorial due to multiple sclerosis, humeral fracture. PT OT evaluate and treat. Anticipate the patient may require placement. Hypokalemia/hypomagnesemia * Replace and recheck Chronic conditions: * MS: on Ocrelizumab * Obesity class III: Complicates care and recovery * History of cerebral aneurysm; s/p clamping along with seizures on Lamotrigine - Noted. Maintain current AED regimen as before. Give IV Ativan prn for breakthrough seizure activity. * Essential hypertension - Continue current medicines plus give prn IV Hydralazine for systolic blood pressure > 160 mmHg. * Hyperlipidemia - Resume statin. * DM-2: Uncontrolled. This is despite metformin and glipizide. Will start the patient on glargine. * asthma - Stable with no evidence of acute flare. VTE prophylaxis with subcu heparin Disposition: To residential facility pending accepting facility and as well as insurance approval Discussed with the patient's at bedside. Charges/Coding Visit Charges Inpatient E&M: 8[address]26 [facility] L1
[2024-03-18] MEDS: buPROPion (XL) 300 MG TABLET.XL PO (10:58)
[2024-03-18] MEDS: Menthol/Lanolin/Calamine/Znox 113 GM Tube 1 APPLIC TOPICAL ×2 (10:59→21:22)
[2024-03-18] MEDS: Heparin Injection (Vial) 5,000 UNIT/ML VIAL 5000 UNIT SC ×2 (10:59→21:21)
[2024-03-18] MEDS: Nystatin Powder 15gm Bottle 1 APPLIC TOPICAL ×2 (10:59→21:22)
[2024-03-18] MEDS: Insulin Glargine-YFGN 100 UNIT/ML Pen 10 UNIT SC ×2 (10:59→21:20)
--- NOTE | 2024-03-18 11:43 | CASEMGMT ---
Addendum entered by Jess Love 03/18/24 13:35: WorkNeel ANSARI met with pt to ask questions for PASSR. Pt states she does not have a seizure disorder; reporting that she may have had a seizure when she had an aneurysm. Pt reports that she was 23 years of age. Pt denies any mental health case management or psychiatric hospitalizations. SW completed full PASSR and placed on chart. LACIE Ervin Addendum entered by Jess Love 03/18/24 13:17: Work- ELAN advised pt of referral acceptance at [facility]. Pt expressed she was pleased to go to [facility]. PT had her hair braided by the preacher's who visited and reported that she feels relaxed and better now. SW will remain available for discharge planning. LACIE Ervin Original Note: Social Travon ANSARI met with pt and spouse to discuss preference at d/c. A list of SNF providers including quality and resource use data and consistent with the patient?s preferred geographic region, medical needs, and insurance network were provided from the CarePort Guide. PT F[facility] is [facility]. Second choice is [facility] [place]. AKHIL advised referrals can be completed. ELAN added pt spouse in as contact. LACEI Ervin
--- NOTE | 2024-03-18 12:14 | CASEMGMT ---
Addendum entered by Chelsea Herrera 03/18/24 12:34: [facility] has accepted and will submit for precert. Chelsea Herrera DC Planning Asst. Original Note: Discharge Planning Referral sent via careport to [facility] [place]. Chelsea Hrerera DC Planning Asst.
[2024-03-18 12:34] LABS: Bedside Glucose 406 mg/dL (74-106)
[2024-03-18 12:55] VITALS: O2SAT 94
--- NOTE | 2024-03-18 14:11 | CASEMGMT ---
Social Work- [facility] and is not interested in additional information at this time. LACIE Ervin
[2024-03-18 17:00] VITALS: BP 158/78; PULSE 76; RESP 18; TEMP 36.7; O2SAT 98
[2024-03-18 17:41] LABS: Bedside Glucose 360 mg/dL (74-106)
[2024-03-18 20:57] VITALS: BP 144/70; PULSE 76; RESP 16; TEMP 36.6; O2SAT 100
[2024-03-18] MEDS: Atorvastatin Calcium 10 MG Tablet PO (21:22)
[2024-03-18 21:44] LABS: Bedside Glucose 333 mg/dL (74-106)
[2024-03-19] MEDS: Morphine 2 MG/ML Syringe IV (02:13)
[2024-03-19] MEDS: Acetaminophen 325 MG Tablet 650 MG PO (02:15)
[2024-03-19 02:47] VITALS: BP 158/87; PULSE 76; RESP 16; TEMP 36.5; O2SAT 100
[2024-03-19 05:52] VITALS: BMI 39.5
--- NOTE | 2024-03-19 08:04 | PN.HOSP_ITS ---
Reason for Visit Reason for Visit: Diagnoses Type 2 diabetes mellitus without complications (03/16/24) Morbid (severe) obesity due to excess calories (03/16/24) Hyperlipidemia, unspecified (03/16/24) Multiple sclerosis (03/16/24) Essential (primary) hypertension (03/16/24) Unspecified fracture of upper end of left humerus, initial encounter for closed fracture (03/16/24) Unspecified fall, initial encounter (03/16/24) Body mass index [BMI] 40.0-44.9, adult (03/16/24) Subjective Subjective Still with proximal left arm pain. Denies any new complaints. Objective Data Objective Data Vital Signs: Vital Signs Temp Pulse Resp BP Pulse Ox O2 Del Method 36.5 C L 76 16 158/87 H 100 Room Air 03/19/24 02:47 03/19/24 02:47 03/19/24 02:47 03/19/24 02:47 03/19/24 02:47 03/19/24 02:47 Oxygen Delivery Method Room Air Weight: 101.2 kg Body Mass Index (BMI) 39.5 Intake & Output: Intake and Output for Last 24 Hours 03/17/24 03/18/24 03/19/24 23:59 23:59 23:59 Intake Total 1933.34 / 1933.34 4116 / 4116 600 / 600 Output Total 850 / 850 2100 / 2100 600 / 600 Balance 1083.34 / 1083.34 2015 0 / 0 Lab / Micro Data 03/18/24 06:41 03/18/24 06:41 Labs: Laboratory Results - last 24 hr 03/18/24 12:17: POC Glucose 406 H 03/18/24 16:47: POC Glucose 360 H 03/18/24 21:19: POC Glucose 333 H Physical Exam Const alert and no apparent distress HEENT head/scalp atraumatic and moist oral mucous membranes Resp normal respiratory effort and no retractions Extremity Extremity Narrative: Left arm in sling Assessment & Plan Assessment/Plan (1) Closed fracture of left proximal humerus: QUALIFIERS: Encounter type: initial encounter Fracture morphology: unspecified fracture morphology Qualified Code(s): S42.202A - Unspecified fracture of upper end of left humerus, initial encounter for closed fracture (2) Fall: QUALIFIERS: Encounter type: initial encounter Qualified Code(s): W19.XXXA - Unspecified fall, initial encounter (3) History of multiple sclerosis: (4) Morbid obesity with BMI of 40.0-44.9, adult: (5) Hypertension: QUALIFIERS: Hypertension type: unspecified Qualified Code(s): I10 - Essential (primary) hypertension (6) Hyperlipidemia: QUALIFIERS: Hyperlipidemia type: unspecified Qualified Code(s): E 78.5 - Hyperlipidemia, unspecified (7) Diabetes mellitus: QUALIFIERS: Diabetes mellitus complication status: without complication 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 Valenzuela: Nonweightbearing left upper extremity encourage elbow wrist finger range of motion pendulum exercises demonstrated when pain allows no active shoulder range of motion passive range of motion is okay. Follow-up in 2 weeks with repeat x-ray. Ice and pain control. Debility * Multifactorial due to multiple sclerosis, humeral fracture. PT OT evaluate and treat. Anticipate the patient may require placement. Hypokalemia/hypomagnesemia * Replace and recheck Chronic conditions: * MS: on Ocrelizumab * Obesity class III: Complicates care and recovery * History of cerebral aneurysm; s/p clamping along with seizures on Lamotrigine - Noted. Maintain current AED regimen as before. Give IV Ativan prn for breakthrough seizure activity. * Essential hypertension - Continue current medicines plus give prn IV Hydralazine for systolic blood pressure > 160 mmHg. * Hyperlipidemia - Resume statin. * DM-2: Uncontrolled. This is despite metformin and glipizide. Will start the patient on glargine. * asthma - Stable with no evidence of acute flare. VTE prophylaxis with subcu heparin Disposition: To long term facility today
[2024-03-19] MEDS: Insulin Lispro 100 UNIT/ML INSULN.PEN SC ×2 (08:15→12:03)
[2024-03-19] MEDS: Aspirin 81 MG TAB.CHEW PO (08:16)
[2024-03-19] MEDS: Menthol/Lanolin/Calamine/Znox 113 GM Tube 1 APPLIC TOPICAL (08:16)
[2024-03-19] MEDS: lamoTRIgine 150 MG Tablet PO (08:19)
[2024-03-19] MEDS: Famotidine 20 MG Tablet PO (08:19)
[2024-03-19] MEDS: Indapamide 2.5 MG Tablet 1.25 MG PO (08:19)
[2024-03-19] MEDS: Pantoprazole Sodium 40 MG Tablet PO (08:19)
[2024-03-19] MEDS: Lisinopril 10 MG Tablet PO (08:19)
[2024-03-19] MEDS: buPROPion (XL) 300 MG TABLET.XL PO (08:20)
[2024-03-19] MEDS: Nystatin Powder 15gm Bottle 1 APPLIC TOPICAL (08:20)
[2024-03-19 08:50] VITALS: BP 185/86; PULSE 75; RESP 18; TEMP 36.6; O2SAT 100
[2024-03-19 09:00] VITALS: O2SAT 100
[2024-03-19] MEDS: Insulin Glargine-YFGN 100 UNIT/ML Pen 10 UNIT SC (10:48)
[2024-03-19] MEDS: Heparin Injection (Vial) 5,000 UNIT/ML VIAL 5000 UNIT SC (10:48)
[2024-03-19] MEDS: hydrOXYzine PAM 25 MG Capsule PO (12:02)
[2024-03-19] MEDS: HYDROcodone Bitartrate/Apap 5/325 Tablet PO (12:03)
--- NOTE | 2024-03-19 12:05 | CASEMGMT ---
Discharge Planning [facility] has obtained precert. Physician updated. Chelsea Herrera DC Planning Asst.
[2024-03-19 12:23] LABS: Bedside Glucose 395 mg/dL (74-106)
[2024-03-19] MEDS: Polyethylene Glycol 3350 17 GM PACKET PO (14:15)
--- NOTE | 2024-03-19 14:39 | TREXTCAR_ITS ---
Diet Diet Order/Speech Therapy: 03/16/24 22:00 Diet: Consistent Carb - Calorie Controlled Food consistency:: Regular Liquid Consistency:: Regular/Thin Dietary Modifications:: Cardiac / Heart Healthy How many daily calories?: 1800 calorie Routine Orders/Code Status Code Status: Full Code Wound(s) face: Wound Type: Abrasion Therapies Weight Bearing: Non weight bearing Extremity Affected:: Left Upper (sling left arm. ) Physical Therapy: Eval and Treat Occupational Therapy: Eval and Treat Problem/Diagnosis (1) Closed fracture of left proximal humerus: Status: Acute Code(s): S42.202A - Unspecified fracture of upper end of left humerus, initial encounter for closed fracture (2) Fall: Status: Acute Code(s): W19.XXXA - Unspecified fall, initial encounter (3) History of multiple sclerosis: Status: Acute Code(s): G35 - Multiple sclerosis (4) Morbid obesity with BMI of 40.0-44.9, adult: Status: Acute Code(s): E66.01 - Morbid (severe) obesity due to excess calories; Z68.41 - Body mass index [BMI] 40.0-44.9, adult (5) Hypertension: Status: Chronic Code(s): I10 - Essential (primary) hypertension (6) Hyperlipidemia: Status: Acute Code(s): E78.5 - Hyperlipidemia, unspecified (7) Diabetes mellitus: Status: Acute Code(s): E11.9 - Type 2 diabetes mellitus without complications Plan Left proximal humeral fracture * NWB * ortho recs per Dr. Valenzuela: Nonweightbearing left upper extremity encourage elbow wrist finger range of motion pendulum exercises demonstrated when pain allows no active shoulder range of motion passive range of motion is okay. Follow-up in 2 weeks with repeat x-ray. Ice and pain control. Debility * Multifactorial due to multiple sclerosis, humeral fracture. PT OT evaluate and treat. Anticipate the patient may require placement. Hypokalemia/hypomagnesemia * Replace and recheck Chronic conditions: * MS: on Ocrelizumab * Obesity class III: Complicates care and recovery * History of cerebral aneurysm; s/p clamping along with seizures on Lamotrigine - Noted. Maintain current AED regimen as before. Give IV Ativan prn for breakthrough seizure activity. * Essential hypertension - Continue current medicines plus give prn IV Hydralazine for systolic blood pressure > 160 mmHg. * Hyperlipidemia - Resume statin. * DM-2: Uncontrolled. This is despite metformin and glipizide. Will start the patient on glargine. * asthma - Stable with no evidence of acute flare. VTE prophylaxis with subcu heparin [facility]position[facility] Allergies/Procedures Done in Hospital Allergies adhesive tape Allergy (Severe, Verified 12/11/21 07:50) Other skin irritation oxycodone (From OxyContin) Allergy (Severe, Verified 12/11/21 07:49) Nausea/Vom/Diarrhea Procedures: None Type of Care/Length of Stay Estimated LOS: Convalescent Care Less Than 30 days Type of Care Needed: Skilled Rehab Potential: Fair Prognosis: Good Additional Orders/Day of Discharge Day of Discharge: 03/19/24 Discharge Plan Admission Admit Date/Time: 03/16/24 21:47 Primary Reason for Your Visit: left humerus fracture Attending Provider: Koffi Llamas Primary Care Provider: YUDITH PERKINS Consulting Providers: Marko Benson; Kosta Posadas; Rober Ellington; Kareem Frederick; Rudolph Brandon; Oleksandr Frederick; Ban Martinez; Jaylene Madrigal; Ruiz Morris; Rome Carroll Discharge Orders/Prescriptions Prescriptions: New hydrocodone-acetaminophen 5-325 mg Tablet 1 tab PO Q6H PRN PRN (Reason: Pain Score 1-10 Or Pre Pt/Ot) 3 Days Qty: 12 0RF famotidine 20 mg Tablet 20 mg PO DAILY Qty: 0 0RF insulin glargine-yfgn 100 unit/mL (3 mL) Insulin Pen 15 unit subcut BID Qty: 0 0RF lamotrigine 150 mg Tablet 150 mg PO DAILY Qty: 0 0RF nystatin [Nyamyc] 100,000 unit/gram Powder 1 applic topical BID Qty: 0 0RF Protocol: *Topical Application Instructions APPLICATION INSTRUCTIONS: under breast and abd folds insulin lispro [Humalog KwikPen Insulin] 100 unit/mL Insulin Pen See Protocol subcut ACHS Qty: 0 0RF Protocol: 1. Sliding Scale Insulin Low Dosing Condition: 150-224 mg/dl = 1 unit Condition: 225-299 mg/dl = 2 units Condition: 300-374 mg/dl = 3 units Condition: 375-449 mg/dl = 4 units Condition: Greater than 449 call physician Protocol Text: Suggested for: - Patients on Total Daily Insulin Dose of 15-27 units - Thin, elderly, renal patients LOW DOSING ALGORITHM Continued Ocrevus 30 mg/mL solution 30 mg IV .Q6MO Rx Instructions: Every 6 months aspirin 81 mg tablet,chewable 81 mg PO DAILY atorvastatin 10 mg tablet 10 mg PO DAILY Patient Comments: TAKE 1 TABLET BY MOUTH EVERYDAY AT BEDTIME indapamide 1.25 mg tablet 1.25 mg PO DAILY Patient Comments: TAKE 1 TABLET BY MOUTH EVERY DAY IN THE MORNING FOR 30 DAYS bupropion HCl 300 mg tablet extended release 24 hr 300 mg PO DAILY Patient Comments: TAKE 1 TABLET BY MOUTH EVERY DAY FOR MOOD ORAL ONCE A DAY 30 DAYS lisinopril 10 mg tablet 10 mg PO DAILY venlafaxine 75 mg capsule,extended release 24hr 75 mg PO DAILY hydroxyzine HCl 25 mg tablet 25 mg PO TID PRN (Reason: itching/anxiety) omeprazole 40 mg capsule,delayed release(DR/EC) See Rx Instructions .ROUTE .COMPLEX Qty: 30 1RF Dose Instruction: TAKE 1 CAPSULE BY MOUTH EVERY DAY Rx Instructions: TAKE 1 CAPSULE BY MOUTH EVERY DAY Discontinued metformin 1,000 mg tablet 1,000 mg PO BID glipizide 10 mg tablet 10 mg PO BID Januvia 100 mg tablet 100 mg PO DAILY Referrals / Follow Up: YUDITH PERKINS [Other] - Within 2 Weeks YUDITH PERKINS [Other] Prem Valenzuela DO [Med Staff - Active Staff] - Within 2 Weeks Disposition Disposition (needs filled in before D/C Order can be placed): Detention Fa cility (1) Closed fracture of left proximal humerus Qualifiers: Encounter type: initial encounter Fracture morphology: unspecified fracture morphology Qualified Code(s): S42.202A - Unspecified fracture of upper end of left humerus, initial encounter for closed fracture (2) Fall Qualifiers: Encounter type: initial encounter Qualified Code(s): W19.XXXA - Unspecified fall, initial encounter (5) Hypertension Qualifiers: Hypertension type: unspecified Qualified Code(s): I10 - Essential (primary) hypertension (6) Hyperlipidemia Qualifiers: Hyperlipidemia type: unspecified Qualified Code(s): E78.5 - Hyperlipidemia, unspecified (7) Diabetes mellitus Qualifiers: Diabetes mellitus type: type 2 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
--- NOTE | 2024-03-19 14:49 | DS.PCM_ITS ---
Providers Date of Admission: 03/16/24 Primary Care Physician: YUDITH PERKINS Consultations 03/16/24 22:36 Consult: Orthopedics Routine Consulting Provider: [facility] Reason for Consult: Proximal Left Humeral Fracture after Fall in Morbidly Obese MS patient. EMERGENT Consult: No MD Notified: Yes Date Notified: 03/17/24 Time Notified: 07:34 Method of Notification: Verbal Reason For Visit: FALL WITH LEFT HUMERAL FRACTURE Diagnosis Discharge Diagnosis (1) Closed fracture of left proximal humerus: Status: Acute Code(s): S42.202A - Unspecified fracture of upper end of left humerus, initial encounter for closed fracture Qualifiers: Encounter type: initial encounter Fracture morphology: unspecified fracture morphology Qualified Code(s): S42.202A - Unspecified fracture of upper end of left humerus, initial encounter for closed fracture (2) Fall: Status: Acute Code(s): W19.XXXA - Unspecified fall, initial encounter Qualifiers: Encounter type: initial encounter Qualified Code(s): W19.XXXA - Unspecified fall, initial encounter (3) History of multiple sclerosis: Status: Acute Code(s): G35 - Multiple sclerosis (4) Morbid obesity with BMI of 40.0-44.9, adult: Status: Acute Code(s): E66.01 - Morbid (severe) obesity due to excess calories; Z68.41 - Body mass index [BMI] 40.0-44.9, adult (5) Hypertension: Status: Chronic Code(s): I10 - Essential (primary) hypertension Qualifiers: Hypertension type: unspecified Qualified Code(s): I10 - Essential (primary) hypertension (6) Hyperlipidemia: Status: Acute Code(s): E78.5 - Hyperlipidemia, unspecified Qualifiers: Hyperlipidemia type: unspecified Qualified Code(s): E78.5 - Hyperlipidemia, unspecified (7) Diabetes mellitus: Status: Acute Code(s): E11.9 - Type 2 diabetes mellitus without complications Qualifiers: Diabetes mellitus type: type 2 Diabetes mellitus group home insulin use: without terminal computer operator use Diabetes mellitus complication status: without complication Qualified Code(s): E11.9 - Type 2 diabetes mellitus without complications Plan Left proximal humeral fracture * NWB * ortho recs per Dr. Valenzuela: Nonweightbearing left upper extremity encourage elbow wrist finger range of motion pendulum exercises demonstrated when pain allows no active shoulder range of motion passive range of motion is okay. Follow-up in 2 weeks with repeat x-ray. Ice and pain control. Debility * Multifactorial due to multiple sclerosis, humeral fracture. PT OT evaluate and treat. Anticipate the patient may require placement. Hypokalemia/hypomagnesemia * Replace and recheck Chronic conditions: * MS: on Ocrelizumab * Obesity class III: Complicates care and recovery * History of cerebral aneurysm; s/p clamping along with seizures on Lamotrigine - Noted. Maintain current AED regimen as before. Give IV Ativan prn for breakthrough seizure activity. * Essential hypertension - Continue current medicines plus give prn IV Hydralazine for systolic blood pressure > 160 mmHg. * Hyperlipidemia - Resume statin. * DM-2: Uncontrolled. This is despite metformin and glipizide. Will start the patient on glargine. * asthma - Stable with no evidence of acute flare. VTE prophylaxis with subcu heparin Disposition: [facility] Medications at Discharge Home Medications aspirin 81 mg chewable tablet 81 mg PO DAILY 10/25/21 ocrelizumab 30 mg/mL intravenous solution (Ocrevus) 30 mg IV .Q6MO 10/25/21 atorvastatin 10 mg tablet 10 mg PO DAILY 12/04/21 bupropion HCl 300 mg 24 hr tablet, extended release 300 mg PO DAILY 12/04/21 indapamide 1.25 mg tablet 1.25 mg PO DAILY 12/04/21 omeprazole 40 mg capsule,delayed release See Rx Instructions .Route .COMPLEX #30 caps 04/12/22 lisinopril 10 mg tablet 10 mg PO DAILY 03/16/24 venlafaxine 75 mg capsule,extended release 24 hr 75 mg PO DAILY 03/16/24 famotidine 20 mg tablet 20 mg PO DAILY #0 tabs 03/19/24 hydrocodone-acetaminophen 5-325mg 5mg-325mg 1 tab PO Q6H PRN PRN Pain Score 1-10 Or Pre Pt/Ot 3 days #12 tabs 03/19/24 hydroxyzine HCl 25 mg tablet 25 mg PO TID PRN itching/anxiety 03/19/24 insulin glargine-yfgn 100 unit/mL (3 mL) subcutaneous pen 15 unit (0.15 mL) subcut BID #0 mL 03/19/24 insulin lispro 100 unit/mL subcutaneous pen (Humalog KwikPen (U-100) Insulin) See Protocol subcut ACHS #0 mL 03/19/24 lamotrigine 150 mg tablet 150 mg PO DAILY #0 tabs 03/19/24 nystatin 100,000 unit/gram topical powder (Nhamyc) 1 applic topical BID #0 grams 03/19/24 Hospital Course Operations None Procedures None Summary of Care Provided Minutes Spent on Discharge: 31 Hospital Course: Patient fell and broke her proximal humerus. Patient is a 58-year-old female with a history of MS and a poor baseline performance status. But with her broken humerus, her is unable to manage her safely at home. Patient was initially resistant to going to a penitentiary facility but after discussion with social work and her , patient was agreeable to going to a penitentiary facility. Patient was approved to go to the [facility]. Patient will be discharged there today. Patient be nonweightbearing of her left upper extremity and wear sling. Patient was seen by orthopedics while she was here and recommended no surgical intervention but the follow-up as outpatient. Patient will follow-up with Dr. Valenzuela. Additionally, her blood sugars were poorly controlled. Her A1c was 10.1. Patient has been started on glargine initially at 10 twice daily but increased up to 15 twice daily. Patient was on glipizide, metformin and Januvia. Those medications will be held as they were not having any effect on her glucose control. Would further optimize her glargine for better diabetes control. Additionally, while she is in the penitentiary facility, she will be on sliding scale insulin. Weight / BMI Weight Weight: 101.2 kg Body Mass Index (BMI) 39.5 ABG / Lab / Microbiology Data 03/18/24 06:41 03/18/24 06:41 Laboratory: Laboratory Results - last 24 hr 03/18/24 16:47: POC Glucose 360 H 03/18/24 21:19: POC Glucose 333 H 03/19/24 12:02: POC Glucose 395 H D/C Instructions Discharge Diet: 2000 Calorie Control Diet Meaningful Use Info Meaningful Use Meaningful Use Diagnoses (Choose all that apply): None applicable Ischemic Stroke Statin Dosing Therapy Reference: STATIN DOSE THERAPY REFERENCE: * Patients > 75 years receive moderate or high dose statin therapy. * Patients 75 years or YOUNGER should receive HIGH intensity statin dose unless contraindicated. You will be required to document reason for non-treatment if statin daily dose does not meet guidelines. HIGH DOSE STATIN THERAPY DAILY Atorvastatin > than or = to 40 mg Rosuvastatin > than or = to 20 mg Amlodipine + Atorvastatin > than or = to 2.5/40 mg Ezetimibe + Simvastatin 10/80 mg Simvastatin 80mg Discharge Plan Admission Admit Date/Time: 03/16/24 21:47 Primary Reason for Your Visit: left humerus fracture Attending Provider: Koffi Llamas Primary Care Provider: YUDITH PERKINS Consulting Providers: Marko Benson; Kosta Posadas; Rober Ellington; Kareem Frederick; Rudolph Brandon; Oleksandr Frederick; Ban Martinez; Jaylene Madrigal; Ruiz Morris; Rome Carroll Discharge Orders/Prescriptions Prescriptions: New hydrocodone-acetaminophen 5-325 mg Tablet 1 tab PO Q6H PRN PRN (Reason: Pain Score 1-10 Or Pre Pt/Ot) 3 Days Qty: 12 0RF famotidine 20 mg Tablet 20 mg PO DAILY Qty: 0 0RF insulin glargine-yfgn 100 unit/mL (3 mL) Insulin Pen 15 unit subcut BID Qty: 0 0RF lamotrigine 150 mg Tablet 150 mg PO DAILY Qty: 0 0RF nystatin [Nyamyc] 100,000 unit/gram Powder 1 applic topical BID Qty: 0 0RF Protocol: *Topical Application Instructions APPLICATION INSTRUCTIONS: under breast and abd folds insulin lispro [Humalog KwikPen Insulin] 100 unit/mL Insulin Pen See Protocol subcut ACHS Qty: 0 0RF Protocol: 1. Sliding Scale Insulin Low Dosing Condition: 150-224 mg/dl = 1 unit Condition: 225-299 mg/dl = 2 units Condition: 300-374 mg/dl = 3 units Condition: 375-449 mg/dl = 4 units Condition: Greater than 449 call physician Protocol Text: Suggested for: - Patients on Total Daily Insulin Dose of 15-27 units - Thin, elderly, renal patients LOW DOSING ALGORITHM Continued Ocrevus 30 mg/mL solution 30 mg IV .Q6MO Rx Instructions: Every 6 months aspirin 81 mg tablet,chewable 81 mg PO DAILY atorvastatin 10 mg tablet 10 mg PO DAILY Patient Comments: TAKE 1 TABLET BY MOUTH EVERYDAY AT BEDTIME indapamide 1.25 mg tablet 1.25 mg PO DAILY Patient Comments: TAKE 1 TABLET BY MOUTH EVERY DAY IN THE MORNING FOR 30 DAYS bupropion HCl 300 mg tablet extended release 24 hr 300 mg PO DAILY Patient Comments: TAKE 1 TABLET BY MOUTH EVERY DAY FOR MOOD ORAL ONCE A DAY 30 DAYS lisinopril 10 mg tablet 10 mg PO DAILY venlafaxine 75 mg capsule,extended release 24hr 75 mg PO DAILY hydroxyzine HCl 25 mg tablet 25 mg PO TID PRN (Reason: itching/anxiety) omeprazole 40 mg capsule,delayed release(DR/EC) See Rx Instructions .ROUTE .COMPLEX Qty: 30 1RF Dose Instruction: TAKE 1 CAPSULE BY MOUTH EVERY DAY Rx Instructions: TAKE 1 CAPSULE BY MOUTH EVERY DAY Discontinued metformin 1,000 mg tablet 1,000 mg PO BID glipizide 10 mg tablet 10 mg PO BID Januvia 100 mg tablet 100 mg PO DAILY Referrals / Follow Up: YUDITH PERKINS [Other] - Within 2 Weeks YUDITH PERKINS [Other] Prem Valenzuela DO [Med Staff - Active Staff] - Within 2 Weeks Disposition Disposition (needs filled in before D/C Order can be placed): Long-Term Facility Charges/Coding Visit Charges Inpatient E&M: 52077 Disch Hosp >30min
--- NOTE | 2024-03-19 14:55 | CASEMGMT ---
Social Work Precert has been obtained.? Physician updated and pt is ready for discharge today.? PASSR completed in [facility]. DCA notified of discharge. Disposition:[facility], skilled level of care under convalescent stay. LACIE Ervin
--- NOTE | 2024-03-19 14:57 | CASEMGMT ---
Social Work- SW spoke with [employer] rep Keyanna who reports that pt is showing that he had had LTC in the past with a $657/month liability. Keyanna will call pt and visit pt to discuss. LACIE Ervin
--- NOTE | 2024-03-19 15:13 | CASEMGMT ---
Discharge Planning Discharge orders, signed med list, and transport time sent to [facility]. Physicians will transport patient by cot at 3:45p. Nursing, SW, patient, and her updated. Chelsea Herrera DC Planning Asst.
[2024-03-19 15:20] VITALS: BP 147/80; PULSE 76; RESP 18; TEMP 36.4; O2SAT 96
== END 2024-03-19 16:35 | disposition skilled nursing facility (03) ==
LOC: ED 21:14 → MS3 21:55
PROVIDERS: Admitting Provider Internal Medicine; Emergency Provider Emergency Medicine
DX: S42.215A Unspecified nondisplaced fracture of surgical neck of left humerus, initial encounter for closed fracture (principal); G35 Multiple sclerosis; E66.01 Morbid (severe) obesity due to excess calories; Z68.41 Body mass index [BMI] 40.0-44.9, adult; E11.9 Type 2 diabetes mellitus without complications; K21.9 Gastro-esophageal reflux disease without esophagitis; Z79.84 Long term (current) use of oral hypoglycemic drugs; Z79.82 Long term (current) use of aspirin; F17.210 Nicotine dependence, cigarettes, uncomplicated; E78.00 Pure hypercholesterolemia, unspecified; F41.8 Other specified anxiety disorders; I10 Essential (primary) hypertension; Z79.899 Other long term (current) drug therapy; W01.198A Fall on same level from slipping, tripping and stumbling with subsequent striking against other object, initial encounter; Y93.89 Activity, other specified; Y92.008 Other place in unspecified non-institutional (private) residence as the place of occurrence of the external cause; M19.90 Unspecified osteoarthritis, unspecified site
CPT/HCPCS: 36415; 73030; 73080; 80048; 80053; 82962; 83036; 83735; 84100; 84443; 85025; 94668; 96365; 96366; 96372; 96375; 96376; 97110; 97163; 97166; 97530; 97535; 99221; 99285; J7030; A4216; G0378; J2405

== ENCOUNTER 2024-06-20 15:49 | Inpatient (IN) | payer MEDICARE, SELFPAY ==
[2024-06-20 15:51] VITALS: BP 154/79; PULSE 78; RESP 20; TEMP 37.1; O2SAT 96; BMI 41.0
--- NOTE | 2024-06-20 16:05 | ED.VIS.FALL ---
HPI HPI - Fall History of Present Illness Chief Complaint: Fall Informant: patient Occured/Mechanism Occurred: Today Mechanism/Context: Yes same level fall Pain/Injury Location: Right shoulder and upper arm, right lower extremity, and occipital scalp Worsened by: Nothing Relieved by: Nothing Associated Symptoms Associated Symptoms: Negative for Parasthesias, Weakness, Loss of function or Loss of consciousness Narrative Narrative: Patient presents after a fall that occurred today. Patient states she got out of bed and was trying to get to her wheelchair when she fell. Patient states she hit her head on the bed frame. Patient denies any loss of consciousness. Patient states landed on her right side. Patient complains of pain in her right shoulder and upper arm. Patient also complains of pain in her right hip, thigh, knee, lower leg, and ankle. Patient describes her pain as aching. Patient states nothing makes it worse and nothing makes it better. Patient denies any new paresthesias or weakness. [facility] Medical History Morbid obesity with BMI of 40.0-44.9, adult History of multiple sclerosis Hyperlipidemia Hypertension Diabetes mellitus Post-menopausal Depression Anxiety Arthritis Diabetes High cholesterol Back pain Loss of consciousness Seizures Multiple sclerosis Gastric reflux Smoker CPAP (continuous positive airway pressure) dependence Sleep apnea Asthma Chronic cough History of pain when walking History of edema Hypertension History of irregular heartbeat Colonic polyp Aneurysm Multiple sclerosis Home Medications ?Medication ?Instructions ?Recorded ?Last Taken ?Type aspirin 81 mg chewable tablet 81 mg PO DAILY 10/25/21 Unknown History atorvastatin 10 mg tablet 10 mg PO QHS 12/04/21 Unknown History indapamide 1.25 mg tablet 1.25 mg PO DAILY 12/04/21 Unknown History lisinopril 10 mg tablet 10 mg PO DAILY 03/16/24 Unknown History venlafaxine 75 mg capsule,extended 75 mg PO DAILY 03/16/24 Unknown History release 24 hr famotidine 20 mg tablet 20 mg PO DAILY #0 tabs 03/19/24 Unknown Rx lamotrigine 150 mg tablet 150 mg PO DAILY 04/21/24 Unknown History buspirone 10 mg tablet 10 mg PO BID 06/20/24 Unknown History insulin glargine-yfgn 100 unit/mL 24 unit subcut BID 06/20/24 Unknown History (3 mL) subcutaneous pen insulin lispro 100 unit/mL 5 unit subcut TIDCM 06/20/24 Unknown History subcutaneous half-unit pen (Humalog Chi KwikPen (U-100)) insulin lispro 100 unit/mL See Protocol subcut ACHS 06/20/24 Unknown History subcutaneous pen (Humalog KwikPen (U-100) Insulin) nicotine 7 mg/24 hr daily 1 patch transdermal DAILY 06/20/24 Unknown History transdermal patch (Nicoderm CQ) pantoprazole 40 mg tablet,delayed 40 mg PO DAILY 06/20/24 Unknown History release potassium chloride 20 mEq 40 meq PO BID 06/20/24 Unknown History tablet,extended release(part/cryst) quetiapine 50 mg tablet 50 mg PO TID 06/20/24 Unknown History Allergy/AdvReac Type Severity Reaction Status Date / Time adhesive tape Allergy Severe Other Verified 06/20/24 19:53 oxycodone (From OxyContin) Allergy Severe Nausea/Vom/ Verified 06/20/24 19:53 Diarrhea Family History Uncle Colon cancer Surgical History Hx of LASIK Tubal ligation status Status post clamping of cerebral aneurysm Hx of lumpectomy History of hysterectomy History of tonsillectomy and adenoidectomy Social History Smoking Status: Former smoker ROS ROS ED Constitutional Constitutional ED: Denies chills or fever(s) Eyes Eyes: Denies blurry vision or change in vision ENT ENT ED: Denies rhinorrhea or sore throat Cardiovascular Cardiovascular: Denies chest pain or palpitations Respiratory/Chest Respiratory/Chest: Denies cough or dyspnea Gastrointestinal Gastrointestinal: Denies nausea or vomiting Genitourinary Genitourinary ED: Denies dysuria or hematuria Musculoskeletal Musculoskeletal: Denies back pain or neck pain Integumentary Denies abscess or rash Neurologic Neurologic: Reports headache(s); Denies weakness Allergic/Immunologic Allergic/Immunologic ED: Denies mouth swelling or urticaria EXAM Physical Exam Const Vital Signs: 06/20/24 15:51 06/20/24 15:54 06/20/24 17:50 Temperature 98.7 F Temperature Source Oral Pulse Rate 78 75 Respiratory Rate 20 H 18 Respiratory Effort Normal Non-Labored Respiratory Depth Normal Respiratory Pattern Normal Blood Pressure 154/79 H 130/70 H Blood Pressure Mean 104 90 Pulse Ox 96 99 Oxygen Delivery Method Room Air Room Air Room Air 06/20/24 19:00 06/20/24 19:52 Temperature 98.1 F Temperature Source Pulse Rate 71 76 Respiratory Rate 20 H 18 Respiratory Effort Respiratory Depth Respiratory Pattern Blood Pressure 119/67 132/78 H Blood Pressure Mean 84 96 Pulse Ox 97 98 Oxygen Delivery Method Room Air Positive well nourished and well developed General Appearance ED: well developed and NAD HEENT Reports normocephalic Neck full ROM and supple Resp normal respiratory effort and clear to auscultation bilaterally Cardio regular rate and regular rhythm GI non-tender and non-distended Palpation: soft Extremity Extremity Narrative: There is diffuse tenderness in the right lower extremity. There is also tenderness over the right shoulder and upper arm. There is no obvious deformity noted. There is no bony crepitance or step-off. Range of motion was limited in all motions of the right shoulder and right lower extremity secondary to pain. Strength is 5/5 bilaterally in the upper and lower extremities. There are no sensory deficits noted. Radial and pedal pulses are equal bilaterally. Neuro oriented x3, CN's II-XII intact bilaterally, moves all extremities, no focal motor deficits and no sensory deficits noted [place] Coma Scale: document GCS findings Spontaneous Obeys Commands Oriented 15 Sensorium / Orientation: alert Motor Exam: strength 5/5 throughout MDM MDM MDM Narrative Medical decision making narrative: Differential diagnosis includes intracranial bleeding, closed head injury, right shoulder fracture, dislocation, right hip fracture, and right lower extremity fracture. CT scan of the brain will be obtained to assess for intracranial bleeding. X-rays of the right shoulder will be obtained to assess for fracture and dislocation. X-rays of the right hip, knee, and ankle will be obtained to assess for fracture. History & Record Review Additional record(s) reviewed:: Prior labs Lab Data Attestation: I reviewed the patient's lab results. Lab results narrative: CBC was reviewed. There is a mild anemia hemoglobin of 11.8 and hematocrit of 36.8. Platelets were slightly low at 126. PT with INR values were reviewed and were within normal limits. Basic metabolic profile was reviewed and was within normal limits with the exception of an elevated glucose of 270. Labs: Laboratory Results - last 24 hr 06/20/24 18:37 WBC 10.7 RBC 4.43 Hgb 11.8 L Hct 36.8 L MCV 83.1 MCH 26.6 L MCHC 32.1 RDW Std Deviation 45.8 H RDW Coeff of William 15.0 H Plt Count 126 L MPV 11.6 Immature Gran % (Auto) 0.500 Neut % (Auto) 85.4 H Lymph % (Auto) 7.7 L [place] % (Auto) 4.4 Eos % (Auto) 1.6 Baso % (Auto) 0.4 Absolute Neuts (auto) 9.1 H Absolute Lymphs (auto) 0.82 L Nucleated RBC % 0 PT 13.5 INR 1.0 APTT 27.0 Sodium 140 Potassium 4.0 Chloride 107 Carbon Dioxide 29.0 Anion Gap 4 L BUN 20 H Creatinine 0.88 Estim Creat Clear Calc 75.01 Est GFR (MDRD) Af Amer 84 Est GFR (MDRD) Non-Af 69 BUN/Creatinine Ratio 22.7 H Glucose 270 H Calcium 9.0 Radiography Diagnostic Testing: Clinical Impression(s) from Imaging Studies Brain CT 06/20/24 16:12 IMPRESSION: There are no acute findings. Chronic involutional changes of the brain. Electronically Signed: Christiano Sharp MD at 17:13 EST , Ankle X-Ray 06/20/24 16:50 IMPRESSION: No acute findings in the right ankle. Electronically Signed: Christiano Sharp MD at 17:14 EST , Hip/Pelvis X-Ray 06/20/24 16:50 IMPRESSION: 1. There is faint cortical irregularity involving the right intertrochanteric region concerning for nondisplaced fracture. 2. Degenerative findings in the lumbar spine. 3. Mild degenerative findings in both hips. Electronically Signed: Christiano Sharp MD at 17:19 EST , Knee X-Ray 06/20/24 16:50 IMPRESSION: Degenerative arthrosis. Small suprapatellar effusion. Electronically Signed: Christiano Sharp MD at 17:16 EST , Shoulder X-Ray 06/20/24 16:50 IMPRESSION: There are no acute findings of the shoulder. Electronically Signed: Christiano Sharp MD at 17:17 EST , CT scan of the brain was obtained. There is no acute intracranial abnormality. This was interpreted by the radiologist and was also independently reviewed by myself. X-rays of the right knee were obtained. There are 3 views. On my independent interpretation, there is no acute fracture. There are some degenerative changes noted. There is a small effusion. Radiologist also interpreted the x-rays and agrees. X-rays of the right ankle were obtained. There are 2 views. On my independent interpretation, there is no acute fracture. There are some degenerative changes noted. Radiologist also interpreted the x-rays and agrees. X-rays of the right hip were obtained. There are 3 views. On my independent interpretation, there is a questionable cortical irregularity involving the right intertrochanteric area. There are some degenerative changes noted. Radiologist also interpreted the x-rays and agrees. X-rays of the right shoulder were obtained. There are 4 views. On my independent interpretation, there is no acute fracture or dislocation. There are some mild degenerative changes. Radiologist also interpreted the x-rays and agrees. CT scan of the right hip was obtained. There is a intertrochanteric fracture of the right hip. There is minimal displacement. This was interpreted by the radiologist was also independently reviewed by myself. Portable 1 view chest x-ray was obtained. On my independent interpretation, lung tate are clear. There is normal cardiac silhouette. Bony thorax is normal. There is no acute process noted. Radiologist also interpreted the x-ray and agrees. EKG Initial EKG: Attestation: I personally reviewed and interpreted this EKG as follows: Interpretation: Sinus Rhythm (69) and No Acute Injury Pattern Comments: EKG was obtained. On my independent interpretation, it showed a normal sinus rhythm with a rate of 69. MS interval, QRS interval, and QTc intervals were all normal. There is left axis deviation at -35. There are no acute ST or T wave changes. Management Discussion w/another healthcare provider: Hospitalist and Accounts Clerk (Dr. Valenzuela from orthopedics) Treatment and Re-Evaluation Narrative: Patient was given injection of morphine. Patient was given a repeat dose of morphine. Patient was also given injection of Zofran. Patient was advised of her findings. Patient was advised of the need for hospitalization and internal fixation of the hip. Medical screening labs will be obtained. Case was discussed with Dr. Valenzuela from orthopedics. He will take the patient to surgery tomorrow. Case was discussed with the hospitalist. He will admit the patient to his service. Patient understood and was agreeable with the plan. All questions were answered. Discharge Plan Dx/Rx/DC Orders Clinical Impression: Closed intertrochanteric fracture of right hip, Fall, Multiple sclerosis Disposition Disposition: Acute Care Hospital [facility]
--- NOTE | 2024-06-20 16:12 | CT_ITS ---
STUDY: CT BRAIN WITHOUT CONTRAST REASON FOR EXAM: Female, 59 years old. Injury/Pain Individualized dose optimization techniques were used for this CT. TECHNIQUE: Transaxial CT imaging of the brain was performed without administration of intravenous contrast material. COMPARISON: 11.14.22 mri FINDINGS: There are calcifications around the carotid artery. These are noted in the cavernous carotid arteries. [Upper lobe craniotomy of the calvarium. Normal soft tissues. Left MCA aneurysm clip. There is mild cerebral atrophy with widening of the extra-axial spaces and ventricular dilatation. There are areas of decreased attenuation within the white matter tracts of the supratentorial brain, consistent with microvascular disease changes. Normal basal ganglia and thalami. Normal brainstem. There is mild cerebellar atrophy. There is no intracranial hemorrhage. There are no findings of an acute ischemic infarction. Normal visualized paranasal sinuses. ASPECTS Score for Acute Strokes: 04/01 CT/Brain/Head without Contrast IMPRESSION: There are no acute findings. Chronic involutional changes of the brain. Electronically Signed: Christiano Sharp MD at 17:13 EST ,
[2024-06-20] MEDS: Ondansetron 4 MG/2 ML Vial IV (16:22)
[2024-06-20] MEDS: Morphine 4 MG/ML Syringe IV ×2 (16:23→18:37)
--- NOTE | 2024-06-20 16:50 | RAD_ITS ---
STUDY: XR Knee 3 Views 06/20/2024 5:15 PM REASON FOR EXAM: Female, 59 years old. Injury/Pain TECHNIQUE: XR Knee 3 Views RIGHT COMPARISON: None FINDINGS: Normal visualized distal femur. Normal visualized proximal tibia and fibula. Normal proximal tibiofibular articulation. There is severe degenerative arthrosis of the medial femorotibial compartment with severe joint space narrowing. There is mild degenerative arthrosis of the lateral femorotibial compartment. There is mild degenerative arthrosis of the patellofemoral articulation. There is a soft tissue prominence in the suprapatellar region suggesting a small volume joint effusion. The soft tissue structures are unremarkable. RAD/Knee 3 Views IMPRESSION: Degenerative arthrosis. Small suprapatellar effusion. Electronically Signed: Christiano Sharp MD at 17:16 EST ,
--- NOTE | 2024-06-20 16:50 | RAD_ITS ---
EXAM: XR RIGHT HIP WITH PELVIS WHEN PERFORMED, 2 OR 3 VIEWS CLINICAL INDICATION: Injury/Pain TECHNIQUE: Two or three views of the right hip with pelvis when performed. COMPARISON: No relevant prior studies available. FINDINGS: BONES/JOINTS: There is faint cortical irregularity involving the right intertrochanteric region concerning for nondisplaced fracture. Degenerative findings in the lumbar spine. Mild degenerative findings in both hips. No destructive or sclerotic lesions. Note that overlapping bowel shadows may however obscure fine detail. Sacroiliac joint is unremarkable. No widening of the pubic symphysis. SOFT TISSUES: Unremarkable. No soft tissue swelling or gas. VASCULATURE: Vascular calcifications. RAD/HIP, UNI W/ Pelvis 2-3 Views IMPRESSION: 1. There is faint cortical irregularity involving the right intertrochanteric region concerning for nondisplaced fracture. 2. Degenerative findings in the lumbar spine. 3. Mild degenerative findings in both hips. Electronically Signed: Christiano Sharp MD at 17:19 EST ,
--- NOTE | 2024-06-20 16:50 | RAD_ITS ---
STUDY: XR Shoulder Min 2 Views REASON FOR EXAM: Female, 59 years old. Injury/Pain TECHNIQUE: XR Shoulder 4 Views RIGHT COMPARISON: None. FINDINGS: There is mild degenerative arthrosis of the glenohumeral articulation. There is degenerative arthrosis of the acromioclavicular joint without inferior osseous spur formation. Normal acromion. Normal humeral head and visualized proximal humerus. The soft tissue structures are unremarkable. Normal visualized pulmonary apex. RAD/Shoulder min 2 Views IMPRESSION: There are no acute findings of the shoulder. Electronically Signed: Christiano Sharp MD at 17:17 EST ,
--- NOTE | 2024-06-20 16:50 | RAD_ITS ---
EXAM: XR RIGHT ANKLE, 2 VIEWS CLINICAL INDICATION: Injury/Pain TECHNIQUE: Frontal and lateral views of the right ankle. COMPARISON: No relevant prior studies available. FINDINGS: BONES/JOINTS: There is a calcaneal spur. Achilles spur. No acute fracture. No subluxation. Normal alignment. Preservation of the joint space. No sclerotic or destructive changes observed. SOFT TISSUES: Unremarkable. No soft tissue swelling or gas. No radiopaque foreign body. RAD/Ankle 2 Views IMPRESSION: No acute findings in the right ankle. Electronically Signed: Christiano Sharp MD at 17:14 EST ,
--- NOTE | 2024-06-20 17:35 | CT_ITS ---
EXAM: CT RIGHT LOWER EXTREMITY WITHOUT INTRAVENOUS CONTRAST CLINICAL INDICATION: Right hip pain TECHNIQUE: Helically acquired images were obtained of the right lower extremity without intravenous contrast. 2-D reformats were performed by the technologist. This CT exam was performed using one or more of the following dose reduction techniques: automated exposure control, adjustment of the mA and/or kV according to patient size, and/or use of iterative reconstruction technique. RADIATION DOSE: Total DLP: 932.44 mGy-cm. COMPARISON: Right hip radiographs of this same date. FINDINGS: BONES/JOINTS: Follow CT confirms the presence of an acute intertrochanteric fracture of the proximal right femur, with mild impaction of the fracture fragments. The right femoral head is not dislocated. The right acetabulum and right pubic rami are intact. There is no widening of the pubic symphysis. No sclerotic or destructive changes. SOFT TISSUES: Streaky fat stranding/bruising noted within the subcutaneous fat overlying the proximal right femur. Atherosclerotic vascular calcification is present. No soft tissue swelling or gas. No radiopaque foreign body. Uterus is absent. The visualized urinary bladder is unremarkable. CT/Extremity Lower without Contra IMPRESSION: Mildly impacted acute intertrochanteric fracture of the proximal right femur. Electronically Signed: Uriel Howard MD at 22:26 EST ,
[2024-06-20 17:50] VITALS: BP 130/70; PULSE 75; RESP 18; O2SAT 99
--- NOTE | 2024-06-20 18:30 | EKG12_ITS ---
Test Reason : DYSRHYTHMIA Blood Pressure : */* mmHG Vent. Rate : 69 BPM Atrial Rate : 69 BPM P-R Int : 186 ms QRS Dur : 86 ms QT Int : 414 ms P-R-T Axes : 73 -35 78 degrees QTcB Int : 443 ms Normal sinus rhythm Left axis deviation Septal infarct , age undetermined Abnormal ECG Confirmed by KELSIE SHANE, ROLF ([id number]), editor farm journal ANIKA NOEL ([id number]) on 06/21/2024 10:46:43 AM Referred By: Confirmed By: ROLF IGLESIAS MD
[2024-06-20 18:47] LABS: Absolute Lymphocyte Count 0.82 X10^3/uL (0.83-4.51); Absolute Neutrophil Count 9.1 X10^3/uL (2.0-7.7); Basophil# 0.04 X10^3/uL; Basophil% 0.4 % (0-1); Eosinophil# 0.17 X10^3/uL; Eosinophils% 1.6 % (0-5); Hematocrit 36.8 % (37-47); Hemoglobin 11.8 g/dL (12.0-15.0); Lymphocyte # 0.82 X10^3/ul (0.83-4.51); Lymphocyte % 7.7 % (19-41); Mean Corp Hgb Conc 32.1 g/dL (32-36); Mean Corpuscular Hgb 26.6 pg (27.0-32.0); Mean Corpuscular Volume 83.1 fL (81-99); Mean Platelet Vol. 11.6 fl (6.2-12.0); Monocyte# 0.47 X10^3/uL; Monocyte% 4.4 % (0-10); NRBC Flagged by Analyzer 0 % (0-5); Neutrophil # 9.14 X10^3/uL (2.7-7.7); Neutrophil % 85.4 % (47-70); Platelet Count 126 K/mm3 (150-450); RBC Distribution Width SD 45.8 fl (35.1-43.9); Red Blood Count 4.43 M/mm3 (4.2-5.4); White Blood Count 10.7 K/mm3 (4.4-11.0)
[2024-06-20 18:55] LABS: Prothrombin Time (Protime)PT. 13.5 SECONDS (11.7-14.9)
[2024-06-20 19:00] VITALS: BP 119/67; PULSE 71; RESP 20; O2SAT 97
[2024-06-20 19:00] LABS: Anion Gap 4 (5-15); BUN 20 mg/dL (7-18); BUN/Creat Ratio 22.7 RATIO (10-20); Chloride 107 mmol/L (98-107); Creatinine, Serum 0.88 mg/dL (0.55-1.02); EST Glomerular Filtration Rate 69 mL/min (>60); Est Glom Filt Rate - Afr Amer 84 mL/min (>60); Estimated Creatinine Clearance 75.01 ml/min; Glucose 270 mg/dL (74-106); Sodium Level 140 mmol/L (136-145)
--- NOTE | 2024-06-20 19:30 | RAD_ITS ---
EXAM: XR CHEST, 1 VIEW CLINICAL INDICATION: Cough TECHNIQUE: Frontal view of the chest. COMPARISON: No relevant prior studies available. FINDINGS: LUNGS AND PLEURAL SPACES: Unremarkable. No consolidation or edema. No pneumothorax. No effusion. HEART: Unremarkable. Cardiac silhouette not enlarged. MEDIASTINUM: Central airways and mediastinal contour are unremarkable. BONES/JOINTS: Unremarkable. No acute fracture. SOFT TISSUES: Unremarkable. RAD/Chest 1 View (Portable) IMPRESSION: No radiographic evidence of acute cardiopulmonary disease. Electronically Signed: Christiano Sharp MD at 19:59 EST ,
[2024-06-20 19:52] VITALS: BP 132/78; PULSE 76; RESP 18; TEMP 36.7; O2SAT 98
--- NOTE | 2024-06-20 19:56 | HP.PCM.HOS_ITS ---
[facility] - General General Date of Admission: 06/20/24 Date of Service: 06/20/24 Chief Complaint: Fall with Right Hip Pain. HPI Narrative WALDO CASTANEDA, is a 59 F who with a past medical history of essential hypertension; on lisinopril and indapamide, hyperlipidemia; on atorvastatin, morbid obesity; with a BMI of 41 this admission, LINDA; on CPAP, DM-2; of unknown control on insulin lispro 5 units subcu 3 times daily and insulin glargine 24 units twice daily, history of multiple sclerosis; with chronically poor mobility, history of depression with anxiety; on venlafaxine, buspirone and quetiapine, history of irregular heartbeat, history of asthma; with chronic cough, history of tobacco abuse; on nicotine patch, history of colon polyps, history of cerebral aneurysm; s/p clamping, history of seizure disorder after aneurysm; on lamotrigine, history of hysterectomy, history of lumpectomy, history of LASIK eye surgery, remote history of tubal ligation, GERD; on famotidine plus pantoprazole and OA; with chronic back pain who presents to [facility] ER complaining of Right hip pain after fall. Ms. Castaneda reports her symptoms began approximately 1 hour prior to arrival when she was attempting to get out of bed to get to her wheelchair when she fell and hit her head on her on the bed frame and her Right hip and arm onto the floor. She denies any loss of consciousness with her fall. Since her fall she has had severe pain primarily in her Right hip but she additionally complains of Right thigh, knee, lower leg and ankle pain. She describes the pain as aching, consistent and severe with nothing seeming to make the pain better and movement making it worse. She denies any new paresthesias or focal neurologic weakness. She denies associated fever, chills, nausea, vomiting, diarrhea, chest pain or shortness of breath but she does admit to diffuse Right-sided pain primarily in her hip along with mild tension-type headache. In the ER she was noted to have X-ray evidence of faint cortical irregularity involving the Right intertrochanteric region concerning for nondisplaced fracture with degenerative findings in the lumbar spine and mild degenerative findings in both hips and she was then admitted to the general medical floor for ongoing care for stay that is expected to extend beyond 2 midnights. [facility] Medical History (Updated 06/20/24 @ 21:[address] Marko Benson, DO) Morbid obesity with BMI of 40.0-44.9, adult History of multiple sclerosis Hyperlipidemia Hypertension Diabetes mellitus Post-menopausal Depression Anxiety Arthritis Diabetes High cholesterol Back pain Loss of consciousness Seizures Multiple sclerosis Gastric reflux Smoker CPAP (continuous positive airway pressure) dependence Sleep apnea Asthma Chronic cough History of pain when walking History of edema Hypertension History of irregular heartbeat Colonic polyp Aneurysm Multiple sclerosis Home Medications ?Medication ?Instructions ?Recorded ?Last Taken ?Type aspirin 81 mg chewable tablet 81 mg PO DAILY 10/25/21 Unknown History atorvastatin 10 mg tablet 10 mg PO QHS 12/04/21 Unknown History indapamide 1.25 mg tablet 1.25 mg PO DAILY 12/04/21 Unknown History lisinopril 10 mg tablet 10 mg PO DAILY 03/16/24 Unknown History venlafaxine 75 mg capsule,extended 75 mg PO DAILY 03/16/24 Unknown History release 24 hr famotidine 20 mg tablet 20 mg PO DAILY #0 tabs 03/19/24 Unknown Rx lamotrigine 150 mg tablet 150 mg PO DAILY 04/21/24 Unknown History buspirone 10 mg tablet 10 mg PO BID 06/20/24 Unknown History insulin glargine-yfgn 100 unit/mL 24 unit subcut BID 06/20/24 Unknown History (3 mL) subcutaneous pen insulin lispro 100 unit/mL 5 unit subcut TIDCM 06/20/24 Unknown History subcutaneous half-unit pen (Humalog Chi KwikPen (U-100)) insulin lispro 100 unit/mL See Protocol subcut ACHS 06/20/24 Unknown History subcutaneous pen (Humalog KwikPen (U-100) Insulin) nicotine 7 mg/24 hr daily 1 patch transdermal DAILY 06/20/24 Unknown History transdermal patch (Nicoderm CQ) pantoprazole 40 mg tablet,delayed 40 mg PO DAILY 06/20/24 Unknown History release potassium chloride 20 mEq 40 meq PO BID 06/20/24 Unknown History tablet,extended release(part/cryst) quetiapine 50 mg tablet 50 mg PO TID 06/20/24 Unknown History Allergy/AdvReac Type Severity Reaction Status Date / Time adhesive tape Allergy Severe Other Verified 06/20/24 19:53 oxycodone (From OxyContin) Allergy Severe Nausea/Vom/ Verified 06/20/24 19:53 Diarrhea Family History Uncle Colon cancer Surgical History (Updated 06/20/24 @ 21:[address] Marko Benson DO) Hx of LASIK Tubal ligation status Status post clamping of cerebral aneurysm Hx of lumpectomy History of hysterectomy History of tonsillectomy and adenoidectomy Social History Smoking Status: Former smoker ROS ROS Narrative Review of Systems: Constitutional: Patient denies fever or chills. Eyes: Patient denies changes in vision or discharge from eyes. ENT: Patient denies runny nose, sore throat or ear pain. Resp: Patient denies SOB or cough. CV: Patient denies chest pain, palpitations or heart racing. GI: Patient denies abdominal pain, nausea, vomiting, diarrhea or constipation. : Patient denies hematuria and dysuria. MSK: Patient admits to severe Right hip pain after fall with x-ray evidence of confirmed fracture. Skin: Patient denies rash, abscess or jaundice. Psych: Patient denies symptoms of uncontrolled depression or anxiety. Neuro: Patient denies headache, paresthesias or focal neurologic deficits. Allergy: Patient denies lip swelling, tongue swelling or urticaria. Hematology: Patient admits to easy bleeding on apixaban. Endocrinology: Patient denies polyuria, polydipsia or polyphagia. 14 point ROS otherwise negative except for positives noted above in HPI. Vital Signs Vital Signs Vital Signs: 06/20/24 15:51 06/20/24 15:54 06/20/24 17:50 Temperature 98.7 F Temperature Source Oral Pulse Rate 78 75 Respiratory Rate 20 H 18 Respiratory Effort Normal Non-Labored Respiratory Depth Normal Respiratory Pattern Normal Blood Pressure 154/79 H 130/70 H Blood Pressure Mean 104 90 Pulse Ox 96 99 Oxygen Delivery Method Room Air Room Air Room Air 06/20/24 19:00 06/20/24 19:52 Temperature 98.1 F Temperature Source Pulse Rate 71 76 Respiratory Rate 20 H 18 Respiratory Effort Respiratory Depth Respiratory Pattern Blood Pressure 119/67 132/78 H Blood Pressure Mean 84 96 Pulse Ox 97 98 Oxygen Delivery Method Room Air Weight Weight: 224 lb 6.889 oz Body Mass Index (BMI) 41.0 Results Lab / Micro Data 06/21/24 03:45 06/21/24 03:45 Labs: Laboratory Results - last 24 hr 06/20/24 18:37: WBC 10.7, RBC 4.43, Hgb 11.8 L, Hct 36.8 L, MCV 83.1, MCH 26.6 L , MCHC 32.1, RDW Std Deviation 45.8 H, RDW Coeff of William 15.0 H, Plt Count 126 L, MPV 11.6, Immature Gran % (Auto) 0.500, Neut % (Auto) 85.4 H, Lymph % (Auto) 7.7 L, Wake % (Auto) 4.4, Eos % (Auto) 1.6, Baso % (Auto) 0.4, Absolute Neuts (auto) 9.1 H, Absolute Lymphs (auto) 0.82 L, Nucleated RBC % 0, PT 13.5, INR 1.0, APTT 27.0, Sodium 140, Potassium 4.0, Chloride 107, Carbon Dioxide 29.0, Anion Gap 4 L, BUN 20 H, Creatinine 0.88, Estim Creat Clear Calc 75.01, Est GFR (MDRD) Af Amer 84, Est GFR (MDRD) Non-Af 69, BUN/Creatinine Ratio 22.7 H, Glucose 270 H, Calcium 9.0 Imaging Radiology Impression Brain CT 06/20/24 16:12 IMPRESSION: There are no acute findings. Chronic involutional changes of the brain. Electronically Signed: Christiano Sharp MD at 17:13 EST , Ankle X-Ray 06/20/24 16:50 IMPRESSION: No acute findings in the right ankle. Electronically Signed: Christiano Sharp MD at 17:14 EST , Hip/Pelvis X-Ray 06/20/24 16:50 IMPRESSION: 1. There is faint cortical irregularity involving the right intertrochanteric region concerning for nondisplaced fracture. 2. Degenerative findings in the lumbar spine. 3. Mild degenerative findings in both hips. Electronically Signed: Christiano Sharp MD at 17:19 EST , Knee X-Ray 06/20/24 16:50 IMPRESSION: Degenerative arthrosis. Small suprapatellar effusion. Electronically Signed: Christiano Sharp MD at 17:16 EST , Shoulder X-Ray 06/20/24 16:50 IMPRESSION: There are no acute findings of the shoulder. Electronically Signed: Christiano Sharp MD at 17:17 EST , Assessment & Plan Assessment/Plan (1) Fall: QUALIFIERS: Encounter type: initial encounter Qualified Code(s): W19.XXXA - Unspecified fall, initial encounter (2) Closed intertrochanteric fracture of right hip: QUALIFIERS: Encounter type: initial encounter Fracture alignment: nondisplaced Qualified Code(s): S72.144A - Nondisplaced intertrochanteric fracture of right femur, initial encounter for closed fracture (3) Osteoarthritis: QUALIFIERS: Osteoarthritis location: unspecified site O steoarthritis type: unspecified Qualified Code(s): M19.90 - Unspecified osteoarthritis, unspecified site (4) Multiple sclerosis: (5) Morbid obesity with BMI of 40.0-44.9, adult: (6) History of surgery for cerebral aneurysm: (7) Seizure disorder: PLAN: Plan 1. Fall onto Right side with X-ray evidence of faint cortical irregularity involving the Right intertrochanteric region concerning for nondisplaced fracture with degenerative findings in the lumbar spine and mild degenerative findings in both hips - Admit to general medical floor. Keep n.p.o. for anticipated ORIF in a.m. Place [place] due to patient's lack of mobility. Give Tylenol as needed for [id number] (level 1-5/10) pain or fever. Give morphine IV as needed for severe (level 6-10/10) pain. Give Zofran IV as needed for nausea or vomiting. Finally, orthopedic surgeon on-call was contacted by the ER physician with formal consultation pending in the a.m. and with help appreciated in advance. 2. History of multiple sclerosis; with chronically poor mobility complicating #1 - Continue quetiapine as previous. 3. Morbid obesity; with a BMI of 41 this admission plus LINDA; on CPAP compounding #1 & #2 - Weight loss will be recommended. Check TSH. Resume nocturnal CPAP. This complicates her case and may hamper recovery. 4. History of cerebral aneurysm; s/p clamping with subsequent seizure disorder after aneurysm; on lamotrigine adding to the medical complexity of #1 - #3 - Resume lamotrigine as previous plus give prn IV lorazepam for breakthrough seizure activity. 5. Essential hypertension; on lisinopril and indapamide - Maintain home regimen as previous. 6. Hyperlipidemia; on atorvastatin - Resume statin. 7. DM-2; of unknown control on insulin lispro 5 units subcu 3 times daily and insulin glargine 24 units twice daily - Since patient NPO for anticipated ORIF we will significantly cut back on her insulin regimen and check FSBS q. AC/HS plus lowest-intensity SSI. Check hemoglobin A1c to objectively evaluate quality of diabetic control. 8. History of depression with anxiety; on venlafaxine, buspirone and quetiapine - Continue current treatment. 9. History of irregular heartbeat - Noted with patient currently in NSR. 10. History of asthma; with chronic cough - Stable with no evidence of acute flare at this time. Give nebulizers prn. 11. History of tobacco abuse; on nicotine patch - Maintain Nicotine patch. 12. History of colon polyps - Noted. 13. History of hysterectomy - Noted. 14. History of lumpectomy - Noted. 15. History of LASIK eye surgery - Noted. 16. Remote history of tubal ligation - Noted for the sake of completeness. 17. GERD; on famotidine plus pantoprazole - Continue both agents as before. 18. OA; with chronic back pain - Give Tylenol prn. 19. DVT prophylaxis - LLE SCD only with impending ORIF in AM. We will avoid preoperative blood thinners in cases of traumatic fracture due to increased risk of bleeding complications. Orthopedic surgeon to decide upon postoperative DVT regimen. Total time: Approximately (but not less than) 75 minutes. Charges/Coding Visit Charges Inpatient E&M: 70357 Init Hosp L3
[2024-06-20 21:00] VITALS: BP 137/66; PULSE 75; RESP 14; O2SAT 98
[2024-06-20 21:45] VITALS: BMI 39.9
[2024-06-20 22:17] VITALS: BP 139/69; PULSE 68; RESP 18; TEMP 36.4; O2SAT 96
[2024-06-20] MEDS: 0.9% Normal Saline (1000mL) 1,000 ML 70 ML IV (22:26)
[2024-06-20] MEDS: Potassium Chloride Oral Tablet 20 MEQ 40 MEQ PO (22:27)
[2024-06-20] MEDS: Morphine 2 MG/ML Syringe IV (22:27)
[2024-06-20] MEDS: QUEtiapine 25 MG Tablet 50 MG PO (22:27)
[2024-06-20] MEDS: Atorvastatin Calcium 10 MG Tablet PO (22:27)
[2024-06-20] MEDS: Acetaminophen 325 MG Tablet 650 MG PO (22:27)
[2024-06-20] MEDS: Insulin Lispro 100 UNIT/ML INSULN.PEN SC (22:32)
[2024-06-20] MEDS: busPIRone 5 MG Tablet 10 MG PO (22:37)
[2024-06-20 22:46] LABS: Hemoglobin A1c 7.4 % (3.8-5.6)
[2024-06-20 23:12] LABS: Bedside Glucose 206 mg/dL (74-106)
[2024-06-21] VITALS (16 sets, daily range): BP systolic 99–152; BP diastolic 50–78; PULSE 74–88; RESP 16–18; TEMP 36.2–36.8; O2SAT 92–100; BMI 40.1; BMI 39.9
[2024-06-21 04:01] LABS: Absolute Lymphocyte Count 1.11 X10^3/uL (0.83-4.51); Absolute Neutrophil Count 7.9 X10^3/uL (2.0-7.7); Basophil# 0.06 X10^3/uL; Basophil% 0.6 % (0-1); Eosinophil# 0.24 X10^3/uL; Eosinophils% 2.4 % (0-5); Hematocrit 36.5 % (37-47); Hemoglobin 11.5 g/dL (12.0-15.0); Lymphocyte # 1.11 X10^3/ul (0.83-4.51); Lymphocyte % 11.2 % (19-41); Mean Corp Hgb Conc 31.5 g/dL (32-36); Mean Corpuscular Hgb 26.3 pg (27.0-32.0); Mean Corpuscular Volume 83.5 fL (81-99); Mean Platelet Vol. 11.6 fl (6.2-12.0); Monocyte# 0.51 X10^3/uL; Monocyte% 5.2 % (0-10); NRBC Flagged by Analyzer 0 % (0-5); Neutrophil # 7.94 X10^3/uL (2.7-7.7); Neutrophil % 80.2 % (47-70); Platelet Count 149 K/mm3 (150-450); RBC Distribution Width CV 15.2 % (11.6-14.6); RBC Distribution Width SD 46.8 fl (35.1-43.9); Red Blood Count 4.37 M/mm3 (4.2-5.4); White Blood Count 9.9 K/mm3 (4.4-11.0)
[2024-06-21 04:30] LABS: ALB/GLOB Ratio 0.8 RATIO (0.9-2.4); AST(SGOT) 14 U/L (15-37); Alanine Aminotransfer ALT/SGPT 22 U/L (13-56); Albumin, Serum 2.7 g/dL (3.2-5.0); Alkaline Phosphatase 176 U/L (45-117); Anion Gap 1 (5-15); BUN 19 mg/dL (7-18); BUN/Creat Ratio 23.4 RATIO (10-20); Calcium,Total 8.5 mg/dL (8.5-10.1); Chloride 107 mmol/L (98-107); Creatinine, Serum 0.81 mg/dL (0.55-1.02); EST Glomerular Filtration Rate 76 mL/min (>60); Est Glom Filt Rate - Afr Amer 92 mL/min (>60); Estimated Creatinine Clearance 80.16 ml/min; Globulin 3.2 g/dL (2.2-4.2); Glucose 270 mg/dL (74-106); Magnesium 1.7 mg/dL (1.6-2.6); Phosphorus 2.7 mg/dL (2.5-4.9); Protein, Total 5.9 g/dL (6.4-8.2); Sodium Level 138 mmol/L (136-145)
[2024-06-21 06:51] LABS: Bedside Glucose 252 mg/dL (74-106)
[2024-06-21] MEDS: busPIRone 5 MG Tablet 10 MG PO ×2 (08:12→22:10)
[2024-06-21] MEDS: Venlafaxine XR 75 MG Capsule PO (08:13)
[2024-06-21] MEDS: QUEtiapine 25 MG Tablet 50 MG PO ×3 (08:13→22:09)
[2024-06-21] MEDS: Pantoprazole Sodium 40 MG Tablet PO (08:14)
[2024-06-21] MEDS: lamoTRIgine 150 MG Tablet PO (08:17)
[2024-06-21] MEDS: Famotidine 20 MG Tablet PO (08:18)
[2024-06-21] MEDS: Insulin Lispro 100 UNIT/ML INSULN.PEN SC ×3 (08:18→22:15)
[2024-06-21] MEDS: Morphine 2 MG/ML Syringe IV (08:36)
[2024-06-21] MEDS: 0.9% Saline Lock 10 ML Syringe IV (08:36)
--- NOTE | 2024-06-21 09:47 | PN.HOSP_ITS ---
Subjective Subjective Doing well, no issues overnight. Complaining of a dry mouth but otherwise pain is controlled Objective Data Objective Data Vital Signs: Vital Signs Temp Pulse Resp BP Pulse Ox O2 Del Method 97.9 F 76 18 125/71 H 99 Room Air 06/21/24 08:08 06/21/24 08:08 06/21/24 08:08 06/21/24 08:08 06/21/24 08:08 06/21/24 08:08 Oxygen Delivery Method Room Air Weight: 218 lb 0.595 oz Body Mass Index (BMI) 39.9 Intake & Output: Intake and Output for Last 24 Hours 06/20/24 06/21/24 06/22/24 03:59 03:59 03:59 Intake Total 759.5 / 759.5 Output Total 300 / 300 Balance 459.5 / 459.5 Lab / Micro Data 06/21/24 03:45 06/21/24 03:45 Labs: Laboratory Results - last 24 hr 06/20/24 18:37: WBC 10.7, RBC 4.43, Hgb 11.8 L, Hct 36.8 L, MCV 83.1, MCH 26.6 L , MCHC 32.1, RDW Std Deviation 45.8 H, RDW Coeff of William 15.0 H, Plt Count 126 L, MPV 11.6, Immature Gran % (Auto) 0.500, Neut % (Auto) 85.4 H, Lymph % (Auto) 7.7 L, [place] % (Auto) 4.4, Eos % (Auto) 1.6, Baso % (Auto) 0.4, Absolute Neuts (auto) 9.1 H, Absolute Lymphs (auto) 0.82 L, Nucleated RBC % 0, PT 13.5, INR 1.0, APTT 27.0, Sodium 140, Potassium 4.0, Chloride 107, Carbon Dioxide 29.0, Anion Gap 4 L, BUN 20 H, Creatinine 0.88, Estim Creat Clear Calc 75.01, Est GFR (MDRD) Af Amer 84, Est GFR (MDRD) Non-Af 69, BUN/Creatinine Ratio 22.7 H, Glucose 270 H, H emoglobin A1c 7.4 H, Calcium 9.0 06/20/24 22:31: POC Glucose 206 H 06/21/24 03:45: WBC 9.9, RBC 4.37, Hgb 11.5 L, Hct 36.5 L, MCV 83.5, MCH 26.3 L, MCHC 31.5 L, RDW Std Deviation 46.8 H, RDW Coeff of William 15.2 H, Plt Count 149 L, MPV 11.6, Immature Gran % (Auto) 0.400, Neut % (Auto) 80.2 H, Lymph % (Auto) 11.2 L, [place] % (Auto) 5.2, Eos % (Auto) 2.4, Baso % (Auto) 0.6, Absolute Neuts (auto) 7.9 H, Absolute Lymphs (auto) 1.11, Nucleated RBC % 0, Sodium 138, Potassium 4.0, Chloride 107, Carbon Dioxide 31.0, Anion Gap 1 L, BUN 19 H, Creatinine 0.81, Estim Creat Clear Calc 80.16, Est GFR (MDRD) Af Amer 92, Est GFR (MDRD) Non-Af 76, BUN/Creatinine Ratio 23.4 H, Glucose 270 H, Calcium 8.5, Phosphorus 2.7, Magnesium 1.7, Total Bilirubin 0.40, AST 14 L, ALT 22, Alkaline Phosphatase 176 H, Total Protein 5.9 L, Albumin 2.7 L, Globulin 3.2, A lbumin/Globulin Ratio 0.8 L, TSH 1.920, Blood Type O POSITIVE, Antibody Screen NEGATIVE 06/21/24 06:28: POC Glucose 252 H Radiography Diagnostic Testing: Radiology Impression Brain CT 06/20/24 16:12 IMPRESSION: There are no acute findings. Chronic involutional changes of the brain. Electronically Signed: Christiano Sharp MD at 17:13 EST , Ankle X-Ray 06/20/24 16:50 IMPRESSION: No acute findings in the right ankle. Electronically Signed: Christiano Sharp MD at 17:14 EST , Hip/Pelvis X-Ray 06/20/24 16:50 IMPRESSION: 1. There is faint cortical irregularity involving the right intertrochanteric region concerning for nondisplaced fracture. 2. Degenerative findings in the lumbar spine. 3. Mild degenerative findings in both hips. Electronically Signed: Christiano Sharp MD at 17:19 EST , Knee X-Ray 06/20/24 16:50 IMPRESSION: Degenerative arthrosis. Small suprapatellar effusion. Electronically Signed: Christiano Sharp MD at 17:16 EST , Shoulder X-Ray 06/20/24 16:50 IMPRESSION: There are no acute findings of the shoulder. Electronically Signed: Christiano Sharp MD at 17:17 EST , Lower Extremity CT 06/20/24 17:35 IMPRESSION: Mildly impacted acute intertrochanteric fracture of the proximal right femur. Electronically Signed: Uriel Howard MD at 22:26 EST , Chest X-Ray 06/20/24 19:30 IMPRESSION: No radiographic evidence of acute cardiopulmonary disease. Electronically Signed: Christiano Sharp MD at 19:59 EST , Physical Exam Narrative General: Alert, Oriented x3 but seems a little bit confused, she does not remember what happened but she did hit her head, Cooperative, No apparent distress HEENT: Atraumatic, PERRLA, EOMI, Normocephalic Oral: Moist Mucosa Neck: Supple, No JVD Lungs: Diminished, Normal air movement, No rhonchi, No wheeze, No rales Cardiovascular: Regular rate, Regular Rhythm, Normal S1, Normal S2, No murmurs Abdomen: Soft, Non Tender, Non-Distended, No Hepato-splenomegaly Extremities: No edema, Capillary Refill Less than 3 Seconds Skin: No rashes, No breakdown Musculoskeletal: Right hip pain Neurological: No focal neurological deficits, moves her extremities except for her right lower extremity secondary to fracture Psych/Mental Status: Flat Assessment & Plan Assessment/Plan (1) Fall: QUALIFIERS: Encounter type: initial encounter Qualified Code(s): W19.XXXA - Unspecified fall, initial encounter (2) Closed intertrochanteric fracture of right hip: QUALIFIERS: Encounter type: initial encounter Fracture alignment: nondisplaced Qualified Code(s): S72.144A - Nondisplaced intertrochanteric fracture of right femur, initial encounter for closed fracture (3) Osteoarthritis: QUALIFIERS: Osteoarthritis location: unspecified site O steoarthritis type: unspecified Qualified Code(s): M19.90 - Unspecified osteoarthritis, unspecified site (4) Multiple sclerosis: (5) Morbid obesity with BMI of 40.0-44.9, adult: (6) History of surgery for cerebral aneurysm: (7) Seizure disorder: PLAN: Plan 1. Right intertrochanteric fracture secondary to mechanical fall complicated by multiple sclerosis and poor mobility at baseline ? Plan for operative repair today ? PT/OT ? Pain management 2. Essential HTN/HLD ? Continue with her home blood pressure medications ? Will monitor make adjustments as necessary 3. DM2/morbid obesity ? Currently n.p.o., after surgery can continue with her insulin ? Accu-Cheks ACHS ? Sliding scale insulin ? Monitor make adjustments as necessary 4. History of cerebral aneurysm with seizure disorder ? Stable ? Continue with her home medications 5. Anxiety/depression ? Stable ? Continue with her home medications 6. GERD ? Stable ? Continue with PPI DVT: SCDs Charges/Coding Visit Charges Inpatient E&M: 92016 Subs Hosp L2
--- NOTE | 2024-06-21 09:55 | PCM.PRE.AN2 ---
ASA Classification* ASA Classification ASA Classification: 3 Assessment & Plan Anesthesia* Anesthesia Assessment Anesthesia Assessment: Discussed sedation and/or anesthesia options, risks, benefits, and alternatives with patient/parents/legal guardian/POA. Questions invited. The patient/parents/legal guardian/POA seems to understand and agrees to proceed with anesthesia plan. Reviewed the physical assessment, medical history, allergy history and patient home medications list prior to surgery/procedure/anesthetic and documented any changes. Performed airway and anesthesia risk assessments. Anesthesia Type Anesthesia Type: General History Source History Obtained from:: Patient and Chart Anesthesia Focused Assessment* Temperature: 97.9 F Pulse Rate: 76 Blood Pressure: 125/71 Respiratory Rate: 18 Pulse Ox: 99 Oxygen Delivery Method: Room Air Airway Assessment Mouth opens: >3 cm Mallampati Score: II Teeth Condition: Chipped/Broken (Patient has several chipped teeth.) and Missing (Patient has a couple of missing teeth. Rest are tight.) Neck Range of motion (ROM): Full ROM Focused Labs Anesthesia Preop lab: CBC WBC 9.9 K/mm3 (4.4-11.0) 06/21/24 03:45 RBC 4.37 M/mm3 (4.2-5.4) 06/21/24 03:45 Hgb 11.5 g/dL (12.0-15.0) L 06/21/24 03:45 Hct 36.5 % (37-47) L 06/21/24 03:45 Plt Count 149 K/mm3 (150-450) L 06/21/24 03:45 CHEMISTRY Potassium 4.0 mmol/L (3.5-5.1) 06/21/24 03:45 Sodium 138 mmol/L (136-145) 06/21/24 03:45 Magnesium 1.7 mg/dL (1.6-2.6) 06/21/24 03:45 Phosphorus 2.7 mg/dL (2.5-4.9) 06/21/24 03:45 BUN 19 mg/dL (7-18) H 06/21/24 03:45 Creatinine 0.81 mg/dL (0.55-1.02) 06/21/24 03:45 Glucose 270 mg/dL (74-106) H 06/21/24 03:45 POC Glucose 252 mg/dL (74-106) H 06/21/24 06:28 TSH 1.920 uIU/mL (0.358-3.740) 06/21/24 03:45 COAG PT 13.5 SECONDS (11.7-14.9) 06/20/24 18:37 Pre-Assessment Diagnosis/Proposed Procedure Planned Operative Procedure(s): Right hip trochanteric femoral nailing. 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 When Was Last Pacemaker Check QUESTION #4 FULL TEXT: You/Your Family Experience fever (hyperthermia) with Anesthesia Last Oral Intake Last Oral intake: Last Oral Intake NPO since 00:00 06/21/24 08:08 Meds taken in AM with sips of Yes 06/21/24 08:08 water? 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 Has anyone observed you stop breathing during sleep? STOP Results Positive 06/20/24 21:45 QUESTION #5 FULL TEXT : Do you snore loudly (louder than talking or can be heard through closed doors)? 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 Specify any problems Hx of Preganancy in last 3 No 06/20/24 21:45 Months Nurse Filling Out Transfusion [email or web address] 06/20/24 21:45 & Questions: Date: 06/20/24 06/20/24 21:45 Time: 22:20 06/20/24 21:45 Patient unable to answer at this time (ie. confused, unrespo /Reproduction History /Reproductive History - harbor tug captain: /Reproductive Hx- harbor tug captain Hx Now No 06/20/24 21:58 Gestational Age (in weeks): EDC: Hx Hx Para Hx Section SAB No 06/20/24 21:58 Active Medications Active Medications: Current Medications Generic Name Dose Route Start Last Admin Trade Name Freq PRN Reason Stop Dose Admin Acetaminophen 650 mg 06/20/24 21:45 06/20/24 22:27 Acetaminophen 325 Mg Tablet PO 650 mg Q6H PRN PRN Administration Pain 1-5/10 or Fever Atorvastatin Calcium 10 mg 06/20/24 22:00 06/20/24 22:27 Atorvastatin Calcium 10 Mg Tablet PO 10 mg QHS BART Administration Buspirone HCl 10 mg 06/20/24 22:00 06/21/24 08:12 Buspirone 5 Mg Tablet PO 10 mg BID BART Administration Famotidine 20 mg 06/21/24 10:00 06/21/24 08:18 Famotidine 20 Mg Tablet PO 20 mg DAILY BART Administration Sodium Chloride 1,000 mls @ 70 mls/hr 06/20/24 21:14 06/21/24 09:17 IV 06/21/24 11:31 0 mls/hr .[id number] BART Infusion Protocol Sodium Chloride 100 mls @ 15 mls/hr 06/20/24 22:00 IV .Q6H40M PRN Saline Flush Sodium Chloride 100 mls @ 15 mls/hr 06/20/24 22:00 IV .Q6H40M PRN Additional IVPB Infusion Indapamide 1.25 mg 06/21/24 10:00 Indapamide 2.5 Mg Tablet PO DAILY [facility] Insulin Glargine 10 unit 06/21/24 10:00 Insulin Glargine-Yfgn 100 Unit/Ml Pen SC DAILY [facility] Insulin Human Lispro 0 unit 06/20/24 22:00 06/21/24 08:18 Insulin Lispro 100 Unit/Ml Insuln.Pen SC 2 units ACHS BART Administration Protocol Lamotrigine 150 mg 06/21/24 10:00 06/21/24 08:17 Lamotrigine 150 Mg Tablet PO 150 mg DAILY BART Administration Lisinopril 10 mg 06/21/24 10:00 Lisinopril 10 Mg Tablet PO DAILY [facility] Protocol Lorazepam 2 mg 06/20/24 21:23 Lorazepam 2 Mg/Ml Syringe IV Q4H PRN PRN Seizure Morphine Sulfate 2 mg 06/20/24 21:45 06/21/24 08:36 Morphine 2 Mg/Ml Syringe IV 2 mg Q4H PRN PRN Administration Pain Score 6-10 Nicotine 7 mg 06/21/24 10:00 Nicotine 7 Mg Patch TD DAILY [facility] Ondansetron HCl 4 mg 06/20/24 21:45 Ondansetron 4 Mg/2 Ml Vial IV Q6H PRN PRN NAUSEA/VOMITING Pantoprazole Sodium 40 mg 06/21/24 10:00 06/21/24 08:14 Pantoprazole Sodium 40 Mg Tablet PO 40 mg DAILY BART Administration Potassium Chloride 40 meq 06/20/24 22:00 06/20/24 22:27 Potassium Chloride Oral Tablet 20 Meq PO 40 meq BID BART Administration Quetiapine Fumarate 50 mg 06/20/24 22:00 06/21/24 08:13 Quetiapine 25 Mg Tablet PO 50 mg TID BART Administration Sodium Chloride 10 - 40 ml 06/20/24 22:00 06/21/24 08:36 0.9% Saline Lock 10 Ml Syringe IV 10 ml UD PRN Administration SALINE FLUSH Venlafaxine HCl 75 mg 06/21/24 10:00 06/21/24 08:13 Venlafaxine Xr 75 Mg Capsule PO 75 mg DAILY BART Administration PFSH Medical History Morbid obesity with BMI of 40.0-44.9, adult History of multiple sclerosis Hyperlipidemia Hypertension Diabetes mellitus Post-menopausal Depression Anxiety Arthritis Diabetes High cholesterol Back pain Loss of consciousness Seizures Multiple sclerosis Gastric reflux Smoker CPAP (continuous positive airway pressure) dependence Sleep apnea Asthma Chronic cough History of pain when walking History of edema Hypertension History of irregular heartbeat Colonic polyp Aneurysm Multiple sclerosis Home Medications ?Medication ?Instructions ?Recorded ?Last Taken ?Type aspirin 81 mg chewable tablet 81 mg PO DAILY 10/25/21 Unknown History atorvastatin 10 mg tablet 10 mg PO QHS 12/04/21 Unknown History indapamide 1.25 mg tablet 1.25 mg PO DAILY 12/04/21 Unknown History lisinopril 10 mg tablet 10 mg PO DAILY 03/16/24 Unknown History venlafaxine 75 mg capsule,extended 75 mg PO DAILY 03/16/24 Unknown History release 24 hr famotidine 20 mg tablet 20 mg PO DAILY #0 tabs 03/19/24 Unknown Rx lamotrigine 150 mg tablet 150 mg PO DAILY 04/21/24 Unknown History buspirone 10 mg tablet 10 mg PO BID 06/20/24 Unknown History insulin glargine-yfgn 100 unit/mL 24 unit subcut BID 06/20/24 Unknown History (3 mL) subcutaneous pen insulin lispro 100 unit/mL 5 unit subcut TIDCM 06/20/24 Unknown History subcutaneous half-unit pen (Humalog Chi KwikPen (U-100)) insulin lispro 100 unit/mL See Protocol subcut ACHS 06/20/24 Unknown History subcutaneous pen (Humalog KwikPen (U-100) Insulin) nicotine 7 mg/24 hr daily 1 patch transdermal DAILY 06/20/24 Unknown History transdermal patch (Nicoderm CQ) pantoprazole 40 mg tablet,delayed 40 mg PO DAILY 06/20/24 Unknown History release potassium chloride 20 mEq 40 meq PO BID 06/20/24 Unknown History tablet,extended release(part/cryst) quetiapine 50 mg tablet 50 mg PO TID 06/20/24 Unknown History Allergy/AdvReac Type Severity Reaction Status Date / Time adhesive tape Allergy Severe Other Verified 06/20/24 19:53 oxycodone (From OxyContin) Allergy Severe Nausea/Vom/ Verified 06/20/24 19:53 Diarrhea Family History Uncle Colon cancer Surgical History Hx of LASIK Tubal ligation status Status post clamping of cerebral aneurysm Hx of lumpectomy History of hysterectomy History of tonsillectomy and adenoidectomy Social History Smoking Status: Former smoker Review of Systems (Anesthesia) ROS Narrative System reviewed and no additional complaints, except as documented.
--- NOTE | 2024-06-21 10:24 | CON.PCM_ITS ---
Assessment & Plan Assessment/Plan (1) Closed intertrochanteric fracture of right hip: QUALIFIERS: Encounter type: initial encounter Fracture alignment: nondisplaced Qualified Code(s): S72.144A - Nondisplaced intertrochanteric fracture of right femur, initial encounter for closed fracture PLAN: Plan Ground-level fall sustaining right hip intertrochanteric femur fracture thorough discussion was had with the patient and her in regards to risk benefits alternatives of surgery including risk of bleeding infection nerve artery tissue damage need for further surgery continued pain. Consent signed right hip trochanteric femoral nail Antibiotics ordered as well as tranexamic acid proceed with TFN. HPI Consult Data Date of Consult: 06/21/24 HPI Narrative HPI Narrative: WALDO ROMAN, is a 59 F who with multiple medical comorbidities including morbid obesity multiple sclerosis seizure disorder history of cerebral aneurysm. Very limited mobility however does transfer with some assistance forgot that she does not transfer on her own got up and had a ground-level fall injuring her right hip PFSH Medical History Morbid obesity with BMI of 40.0-44.9, adult History of multiple sclerosis Hyperlipidemia Hypertension Diabetes mellitus Post-menopausal Depression Anxiety Arthritis Diabetes High cholesterol Back pain Loss of consciousness Seizures Multiple sclerosis Gastric reflux Smoker CPAP (continuous positive airway pressure) dependence Sleep apnea Asthma Chronic cough History of pain when walking History of edema Hypertension History of irregular heartbeat Colonic polyp Aneurysm Multiple sclerosis Home Medications ?Medication ?Instructions ?Recorded ?Last Taken ?Type aspirin 81 mg chewable tablet 81 mg PO DAILY 10/25/21 Unknown History atorvastatin 10 mg tablet 10 mg PO QHS 12/04/21 Unknown History indapamide 1.25 mg tablet 1.25 mg PO DAILY 12/04/21 Unknown History lisinopril 10 mg tablet 10 mg PO DAILY 03/16/24 Unknown History venlafaxine 75 mg capsule,extended 75 mg PO DAILY 03/16/24 Unknown History release 24 hr famotidine 20 mg tablet 20 mg PO DAILY #0 tabs 03/19/24 Unknown Rx lamotrigine 150 mg tablet 150 mg PO DAILY 04/21/24 Unknown History buspirone 10 mg tablet 10 mg PO BID 06/20/24 Unknown History insulin glargine-yfgn 100 unit/mL 24 unit subcut BID 06/20/24 Unknown History (3 mL) subcutaneous pen insulin lispro 100 unit/mL 5 unit subcut TIDCM 06/20/24 Unknown History subcutaneous half-unit pen (Humalog Chi KwikPen (U-100)) insulin lispro 100 unit/mL See Protocol subcut ACHS 06/20/24 Unknown History subcutaneous pen (Humalog KwikPen (U-100) Insulin) nicotine 7 mg/24 hr daily 1 patch transdermal DAILY 06/20/24 Unknown History transdermal patch (Nicoderm CQ) pantoprazole 40 mg tablet,delayed 40 mg PO DAILY 06/20/24 Unknown History release potassium chloride 20 mEq 40 meq PO BID 06/20/24 Unknown History tablet,extended release(part/cryst) quetiapine 50 mg tablet 50 mg PO TID 06/20/24 Unknown History Allergy/AdvReac Type Severity Reaction Status Date / Time adhesive tape Allergy Severe Other Verified 06/20/24 19:53 oxycodone (From OxyContin) Allergy Severe Nausea/Vom/ Verified 06/20/24 19:53 Diarrhea Family History Uncle Colon cancer Surgical History Hx of LASIK Tubal ligation status Status post clamping of cerebral aneurysm Hx of lumpectomy History of hysterectomy History of tonsillectomy and adenoidectomy Social History Smoking Status: Former smoker Physical Exam Const alert, oriented x3 and no apparent distress General Appearance: cooperative and comfortable Extremity Extremity Narrative: Right hip morbidly obese no ecchymosis erythema she is able to wiggle her toes palpable pedal pulse compartments soft Lab / Micro Data 06/21/24 03:45 06/21/24 03:45 Labs: Laboratory Results - last 24 hr 06/20/24 18:37: WBC 10.7, RBC 4.43, Hgb 11.8 L, Hct 36.8 L, MCV 83.1, MCH 26.6 L , MCHC 32.1, RDW Std Deviation 45.8 H, RDW Coeff of William 15.0 H, Plt Count 126 L, MPV 11.6, Immature Gran % (Auto) 0.500, Neut % (Auto) 85.4 H, Lymph % (Auto) 7.7 L, Concho % (Auto) 4.4, Eos % (Auto) 1.6, Baso % (Auto) 0.4, Absolute Neuts (auto) 9.1 H, Absolute Lymphs (auto) 0.82 L, Nucleated RBC % 0, PT 13.5, INR 1.0, APTT 27.0, Sodium 140, Potassium 4.0, Chloride 107, Carbon Dioxide 29.0, Anion Gap 4 L, BUN 20 H, Creatinine 0.88, Estim Creat Clear Calc 75.01, Est GFR (MDRD) Af Amer 84, Est GFR (MDRD) Non-Af 69, BUN/Creatinine Ratio 22.7 H, Glucose 270 H, H emoglobin A1c 7.4 H, Calcium 9.0 06/20/24 22:31: POC Glucose 206 H 06/21/24 03:45: WBC 9.9, RBC 4.37, Hgb 11.5 L, Hct 36.5 L, MCV 83.5, MCH 26.3 L, MCHC 31.5 L, RDW Std Deviation 46.8 H, RDW Coeff of William 15.2 H, Plt Count 149 L, MPV 11.6, Immature Gran % (Auto) 0.400, Neut % (Auto) 80.2 H, Lymph % (Auto) 11.2 L, Concho % (Auto) 5.2, Eos % (Auto) 2.4, Baso % (Auto) 0.6, Absolute Neuts (auto) 7.9 H, Absolute Lymphs (auto) 1.11, Nucleated RBC % 0, Sodium 138, Potassium 4.0, Chloride 107, Carbon Dioxide 31.0, Anion Gap 1 L, BUN 19 H, Creatinine 0.81, Estim Creat Clear Calc 80.16, Est GFR (MDRD) Af Amer 92, Est GFR (MDRD) Non-Af 76, BUN/Creatinine Ratio 23.4 H, Glucose 270 H, Calcium 8.5, Phosphorus 2.7, Magnesium 1.7, Total Bilirubin 0.40, AST 14 L, ALT 22, Alkaline Phosphatase 176 H, Total Protein 5.9 L, Albumin 2.7 L, Globulin 3.2, A lbumin/Globulin Ratio 0.8 L, TSH 1.920, Blood Type O POSITIVE, Antibody Screen NEGATIVE 06/21/24 06:28: POC Glucose 252 H Imaging Radiology Impression Brain CT 06/20/24 16:12 IMPRESSION: There are no acute findings. Chronic involutional changes of the brain. Electronically Signed: Christiano Sharp MD at 17:13 EST , Ankle X-Ray 06/20/24 16:50 IMPRESSION: No acute findings in the right ankle. Electronically Signed: Christiano Sharp MD at 17:14 EST , Hip/Pelvis X-Ray 06/20/24 16:50 IMPRESSION: 1. There is faint cortical irregularity involving the right intertrochanteric region concerning for nondisplaced fracture. 2. Degenerative findings in the lumbar spine. 3. Mild degenerative findings in both hips. Electronically Signed: Christiano Sharp MD at 17:19 EST , Knee X-Ray 06/20/24 16:50 IMPRESSION: Degenerative arthrosis. Small suprapatellar effusion. Electronically Signed: Christiano Sharp MD at 17:16 EST , Shoulder X-Ray 06/20/24 16:50 IMPRESSION: There are no acute findings of the shoulder. Electronically Signed: Christiano Sharp MD at 17:17 EST , Lower Extremity CT 06/20/24 17:35 IMPRESSION: Mildly impacted acute intertrochanteric fracture of the proximal right femur. Electronically Signed: Uriel Howard MD at 22:26 EST , Chest X-Ray 06/20/24 19:30 IMPRESSION: No radiographic evidence of acute cardiopulmonary disease. Electronically Signed: Christiano Sharp MD at 19:59 EST ,
[2024-06-21] MEDS: Cefazolin 2 GM in Syringe IV (10:55)
[2024-06-21] MEDS: TRANEXAMIC ACID 2,000 MG in 0.9% Normal Saline (100mL Bag) 100 ML 440 MG IV (10:55)
--- NOTE | 2024-06-21 11:00 | RAD_ITS ---
EXAM: XR RIGHT HIP WITH PELVIS WHEN PERFORMED, 2 OR 3 VIEWS CLINICAL INDICATION: FX TECHNIQUE: Two or three views of the right hip with pelvis when performed. COMPARISON: No relevant prior studies available. FINDINGS: BONES/JOINTS: Images are obtained intraoperatively. These show placement of hardware across the right femoral neck fracture. Fracture fragments are in anatomic alignment. No destructive or sclerotic lesions. Note that overlapping bowel shadows may however obscure fine detail. Sacroiliac joint is unremarkable. No widening of the pubic symphysis. The articular structures are unremarkable. SOFT TISSUES: Unremarkable. No soft tissue swelling or gas. RAD/Hip Min 2 Views (Portable) IMPRESSION: ORIF of a right hip fracture. Electronically Signed: Aleksander Calderon MD at 16:43 EST ,
--- NOTE | 2024-06-21 12:13 | CHAPLAIN ---
Type of Pastoral Visit ___ Initial Visit ___ Follow-up Visit ___ On-call Visit ___ General Patient Visit ___ Spiritual Assessment ___ Family Conference ___ Bereavement ___ Rapid Response ___ Code Blue ___ Other (describe below) Pastoral Care Referral From ___ Patient ___ Family ___ Nurse ___ Physician ___ Security Project Manager ___ Heel Cementer Machine ___ Other (describe below) Sacrament/Intervention ___ Active listening ___ Anointing ___ Orthodox ___ Bereavement ___ Communion ___ Caterina exploration ___ ___ Life review ___ Prayer ___ Reconciliation ___ Sacrament of Sick ___ Supportive presence ___ Wedding ___ Other (describe below) Pastoral Comments patient and bed are out of the room; left a calling card
[2024-06-21] MEDS: Bupiv/Epi 0.25% 30 ML Vial (12:14)
--- NOTE | 2024-06-21 12:28 | PCM.POST.ANE ---
Anesthesia: Postop Eval I Current Vital Signs Temperature: 98.3 F Pulse Rate: 78 Blood Pressure: 144/76 Respiratory Rate: 18 Pulse Ox: 94 Oxygen Delivery Method: Room Air Assessment Airway patent: Yes Spontaneous unlabored respirations: Yes Mental status: Awake and Calm nausea: No Vomiting: No Anesthesia Complication: No Fluid Hydration Crystalloid volume administer (ml): 1,400 Total IV fluid infused: 1,400 Progress Note Anesthesia document: Postop Eval 1 completed: Yes
--- NOTE | 2024-06-21 12:36 | PCM.OPRPT ---
Operative Report (Standard) Operative Information Date of Procedure: 06/21/24 Pre-Operative Diagnosis: Right hip intertrochanteric femur fracture Post-Operative Diagnosis: Same Surgery/Procedure Performed: Cephalomedullary fixation right femur purchasing supervisor: No Type of Anesthesia: General RN Documented Start/Stop Times: Operation Date: 06/21/24 10:30 Case Time Into Pre-Op 06/21/24 09:27 Out of Pre-Op 06/21/24 10:46 Anesthesia Start 06/21/24 10:50 Into Room 06/21/24 10:50 Procedure Start 06/21/24 11:18 Procedure End 06/21/24 12:19 Anesthesia End 06/21/24 12:23 Out of Room 06/21/24 12:23 Into Recovery 06/21/24 12:24 Procedure Start Time: 11:18 Procedure Stop Time: 12:19 Select all DRAINS/GRAFTS/IMPLANTS that apply: Implanted device Implanted device details: Synthes TFN size 10 and 130 degree with a 90 mm helical blade Estimated Blood Loss: 50 Specimen collected: No Description of surgery: Preoperative diagnosis: Right hip intertrochanteric femur fracture Postoperative diagnosis: Same Procedure: Cephalo-medullary fixation right hip Implants: Synthes short nail 130 deg 10 mm diameter 90 mm helical blade Anesthesia: General EBL: 50 Complications: None Condition: Stable to PACU Indication for procedure: 59-year-old female patient with multiple sclerosis morbidly obese patient with ground-level fall sustaining injury to hip. Fracture demonstrated intertrochanteric femur fracture pattern. Risk benefits and alternatives were reviewed including risk of bleeding infection nerve, artery, bone, tissue damage, blood clot need for further surgery and continued pain. Procedure: Patient met in the preoperative holding area once again the operative extremity was identified by both patient and physician and was marked. Patient was met by anesthesia and IV was started . patient was brought back to the to the operating room anesthesia was started. Patient was then positioned on the fracture table all bony prominences were well-padded. patient was then positioned with abduction internal rotation and traction and fluoroscopy was brought in to ensure that an adequate reduction could be performed. Patient was then prepped and draped in usual sterile fashion and timeout was called to ensure the proper patient procedure and extremity were being contemplated. Fluoroscopy was used to debra the tip of the greater trochanter and a 3 fingerbreadth incision was made 2 finger breaths proximal to the tip of the greater trochanter. Was carried carried down through the skin and subcutaneous tissue as well as the gluteal fascia. Guidepin was then inserted through the tip of the greater trochanter directed towards the level of lesser trochanter this was checked in both AP and lateral projections. An opening reamer was performed. Following this was the insertion of the nail the appropriate height jig was used and a triple trocar sleeve was advanced to the skin and a stab incision was made at the trocar was inserted to the level of the bone and a guidepin was placed into the femoral neck and head checked on both AP and lateral projections. This was then measured and appropriately sized helical blade was inserted the nail was locked proximally the fracture was compressed the distal locking screw drill bit when used through the guide kept abutting the nail and spite of multiple attempts assuring no skin tension or soft tissue tensioning on the jigs it was felt that due to the significant femoral bow there was some bend in the nail which was altering the alignment for placement when evaluating her fracture pattern I do not feel that rotational stability would be compromised without the screw and therefore opted to do without it. Final AP and lateral projections were saved to the PACS system of the entire construct the wounds were thoroughly irrigated the fascia was closed with #1 [id number] Vicryls followed by 2-0 Vicryl in the subcutaneous tissues followed by steph in the skin. 0.5% Marcaine with epinephrine was injected into the subcutaneous tissues dressing was applied form of Xeroform 4 x 4 ABD and Ioban tape. Patient tolerated procedure well there is no intraoperative complications and was brought back to the PACU in stable condition. Surgical Findings: As above Complications Complications: No
--- NOTE | 2024-06-21 12:50 | RAD_ITS ---
STUDY: X-RAY - PELVIS AND RIGHT HIP REASON FOR EXAM: Female, 59 years old. Post Op -- AP both hips on single ap/lateral of op hip PACU TECHNIQUE: 2 views of the pelvis and hip. COMPARISON: June 20, 2024 FINDINGS: Newly placed intramedullary nail system of the right hip fixating an intertrochanteric fracture. Expected postoperative air in the adjacent soft tissues. Well placed hardware. There is a non-specific bowel gas pattern. Normal visualized soft tissue structures. The remaining structures are stable. RAD/Hip Min 2 Views (Portable) IMPRESSION: Status post right hip intramedullary nailing Electronically Signed: Talib Amado MD at 14:18 EST ,
--- NOTE | 2024-06-21 14:03 | POSTOPAN2_ITS ---
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 MACHINE OPERATOR.[email or web address] nausea No 06/21/24 12:28 SHAVING MACHINE OPERATOR.SKOBY Vomiting No 06/21/24 12:28 SHAVING MACHINE OPERATOR.[email or web address] Anesthesia Postop Eval I: Fluid Summary Crystalloid volume administer 1,400 06/21/24 12:28 SHAVING MACHINE OPERATOR.SKOBY (ml) Colloids volume administered ( ml) Blood Product volume administered (ml) Total IV fluid infused 1,400 06/21/24 12:28 SHAVING MACHINE OPERATOR.[email or web address] Anesthesia Postop Eval I: Summary Notes Anesthesia Complication No 06/21/24 12:28 SHAVING MACHINE OPERATOR.[email or web address] Anesthesia Complication Comment: Post-operative progress note Anesthesia: Postop Eval II Evaluation Mental status: Awake and Calm Pain Level: 1 nausea: No Vomiting: No Complications Anesthesia Complication: No
--- NOTE | 2024-06-21 14:03 | PCM.POSTANE2 ---
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.[email or web address] Spontaneous unlabored Yes 06/21/24 12:28 AUTO DAMAGE APPRAISER.[email or web address] respirations Mental status Awake,Calm 06/21/24 12:28 AUTO DAMAGE APPRAISER.[email or web address] nausea No 06/21/24 12:28 AUTO DAMAGE APPRAISER.[email or web address] Vomiting No 06/21/24 12:28 AUTO DAMAGE APPRAISER.[email or web address] Anesthesia Postop Eval I: Fluid Summary Crystalloid volume administer 1,400 06/21/24 12:28 AUTO DAMAGE APPRAISER.[email or web address] (ml) Colloids volume administered ( ml) Blood Product volume administered (ml) Total IV fluid infused 1,400 06/21/24 12:28 AUTO DAMAGE [email or web address].[email or web address] Anesthesia Postop Eval I: Summary Notes Anesthesia Complication No 06/21/24 12:28 AUTO DAMAGE APPRAISER.SKOBAmado Anesthesia Complication Comment: Post-operative progress note Anesthesia: Postop Eval II Evaluation Mental status: Awake and Calm Pain Level: 1 nausea: No Vomiting: No Complications Anesthesia Complication: No
[2024-06-21] MEDS: Potassium Chloride Oral Tablet 20 MEQ 40 MEQ PO ×2 (15:20→22:09)
[2024-06-21] MEDS: Lisinopril 10 MG Tablet PO (15:20)
[2024-06-21] MEDS: Acetaminophen 500 MG Tablet 1000 MG PO ×2 (15:20→22:09)
[2024-06-21] MEDS: Indapamide 2.5 MG Tablet 1.25 MG PO (15:21)
[2024-06-21] MEDS: Insulin Glargine-YFGN 100 UNIT/ML Pen 10 UNIT SC (15:21)
[2024-06-21] MEDS: Calcium Carbonate 500 MG Tablet PO (15:21)
[2024-06-21 15:37] LABS: Bedside Glucose 240 mg/dL (74-106)
[2024-06-21] MEDS: oxyCODONE 5 MG Tablet PO (16:28)
--- NOTE | 2024-06-21 17:55 | CASEMGMT ---
Social Work- SW met with pt and pt SO to discuss preferences at d/c. SW introduced self and role. Pt and pt SO report that the plan is to return to [facility]. Pt and pt SO report no other needs at this time. SW updated [facility] via [facility]. Plan: [facility]; skilled level of care LACIE Ervin
[2024-06-21] MEDS: Polyethylene Glycol 3350 17 GM PACKET PO (22:09)
[2024-06-21] MEDS: Atorvastatin Calcium 10 MG Tablet PO (22:10)
[2024-06-22] VITALS (7 sets, daily range): BP systolic 101–116; BP diastolic 40–64; PULSE 74–85; RESP 16–18; TEMP 36.3–36.8; O2SAT 92–99; BMI 42.7
[2024-06-22] MEDS: QUEtiapine 25 MG Tablet 50 MG PO ×3 (05:40→20:29)
[2024-06-22] MEDS: Acetaminophen 500 MG Tablet 1000 MG PO ×3 (05:40→20:28)
[2024-06-22 06:17] LABS: Absolute Lymphocyte Count 0.59 X10^3/uL (0.83-4.51); Absolute Neutrophil Count 13.2 X10^3/uL (2.0-7.7); Basophil# 0.03 X10^3/uL; Basophil% 0.2 % (0-1); Eosinophil# 0.01 X10^3/uL; Eosinophils% 0.1 % (0-5); Hematocrit 29.7 % (37-47); Hemoglobin 9.5 g/dL (12.0-15.0); Lymphocyte # 0.59 X10^3/ul (0.83-4.51); Mean Corpuscular Volume 84.4 fL (81-99); Monocyte# 0.73 X10^3/uL; NRBC Flagged by Analyzer 0 % (0-5); Neutrophil # 13.21 X10^3/uL (2.7-7.7); POSITIVE DIFFERENTIAL YES; Platelet Count 158 K/mm3 (150-450); RBC Distribution Width CV 15.2 % (11.6-14.6); RBC Distribution Width SD 46.6 fl (35.1-43.9); Red Blood Count 3.52 M/mm3 (4.2-5.4); White Blood Count 14.7 K/mm3 (4.4-11.0)
[2024-06-22] MEDS: Insulin Lispro 100 UNIT/ML INSULN.PEN SC ×4 (06:25→20:26)
[2024-06-22 06:41] LABS: Anion Gap 6 (5-15); BUN 25 mg/dL (7-18); Calcium,Total 8.4 mg/dL (8.5-10.1); Chloride 106 mmol/L (98-107); Creatinine, Serum 1.04 mg/dL (0.55-1.02); EST Glomerular Filtration Rate 57 mL/min (>60); Est Glom Filt Rate - Afr Amer 69 mL/min (>60); Estimated Creatinine Clearance 64.73 ml/min; Glucose 321 mg/dL (74-106); Magnesium 1.7 mg/dL (1.6-2.6); Phosphorus 2.6 mg/dL (2.5-4.9); Potassium 4.3 mmol/L (3.5-5.1); Sodium Level 137 mmol/L (136-145)
[2024-06-22 07:20] LABS: Bedside Glucose 277 mg/dL (74-106)
[2024-06-22] MEDS: Potassium Chloride Oral Tablet 20 MEQ 40 MEQ PO ×2 (08:09→20:27)
[2024-06-22] MEDS: Pantoprazole Sodium 40 MG Tablet PO (08:09)
[2024-06-22] MEDS: oxyCODONE 5 MG Tablet PO ×2 (08:09→14:20)
[2024-06-22] MEDS: Calcium Carbonate 500 MG Tablet PO ×3 (08:09→16:28)
[2024-06-22] MEDS: lamoTRIgine 150 MG Tablet PO (08:10)
[2024-06-22] MEDS: Cholecalciferol (VIT D3) 25 MCG TABLET (1,000 UNITS) PO (08:10)
[2024-06-22] MEDS: Famotidine 20 MG Tablet PO (08:10)
[2024-06-22] MEDS: busPIRone 5 MG Tablet 10 MG PO ×2 (08:10→20:28)
[2024-06-22] MEDS: APIXABAN 2.5 MG TABLET (WCH) PO ×2 (08:11→20:28)
[2024-06-22] MEDS: Venlafaxine XR 75 MG Capsule PO (08:11)
--- NOTE | 2024-06-22 09:38 | PCM.PN.HOSP ---
Subjective Subjective Doing well, has some weakness but otherwise pain is controlled. The weakness is likely complicated by her MS but she is normally ambulatory Objective Data Objective Data Vital Signs: Vital Signs Temp Pulse Resp BP Pulse Ox O2 Del Method O2 Flow Rate 97.8 F 74 16 103/52 L 99 Room Air 2 06/22/24 08:00 06/22/24 08:00 06/22/24 08:00 06/22/24 08:00 06/22/24 08:00 06/22/24 08:00 06/21/24 17:03 Oxygen Flow Rate (L/min) 2 Oxygen Delivery Method Room Air Weight: 232 lb 2.348 oz Body Mass Index (BMI) 42.7 Intake & Output: Intake and Output for Last 24 Hours 06/21/24 06/22/24 06/23/24 03:59 03:59 03:59 Intake Total 2199.5 / 2199.5 100 / 100 Output Total 1225 / 1225 100 / 100 Balance 974.5 / 974.5 0 / 0 Lab / Micro Data 06/22/24 06:02 06/22/24 06:02 Labs: Laboratory Results - last 24 hr 06/21/24 15:19: POC Glucose 240 H 06/22/24 06:02: WBC 14.7 H, RBC 3.52 L, Hgb 9.5 L, Hct 29.7 L, MCV 84.4, MCH 27.0, MCHC 32.0, RDW Std Deviation 46.6 H, RDW Coeff of William 15.2 H, Plt Count 158, MPV 12.0, Immature Gran % (Auto) 0.700, Neut % (Auto) 90.0 H, Lymph % (Auto) 4.0 L, [place] % (Auto) 5.0, Eos % (Auto) 0.1, Baso % (Auto) 0.2, Absolute Neuts (auto) 13.2 H, Absolute Lymphs (auto) 0.59 L, Nucleated RBC % 0, Sodium 137, Potassium 4.3, Chloride 106, Carbon Dioxide 25.0, Anion Gap 6, BUN 25 H, Creatinine 1.04 H, Estim Creat Clear Calc 64.73, Est GFR (MDRD) Af Amer 69, Est GFR (MDRD) Non-Af 57 L, BUN/Creatinine Ratio 24.0 H, Glucose 321 H, Calcium 8.4 L, Phosphorus 2.6, Magnesium 1.7 06/22/24 06:24: POC Glucose 277 H Radiography Diagnostic Testing: Radiology Impression Hip X-Ray 06/21/24 11:00 IMPRESSION: ORIF of a right hip fracture. Electronically Signed: Aleksander Calderon MD at 16:43 EST , Hip X-Ray 06/21/24 12:50 IMPRESSION: Status post right hip intramedullary nailing Electronically Signed: Talib Amado MD at 14:18 EST , Physical Exam Narrative General: Alert, Oriented x3, cooperative, No apparent distress HEENT: Atraumatic, PERRLA, EOMI, Normocephalic Oral: Moist Mucosa Neck: Supple, No JVD Lungs: Diminished, Normal air movement, No rhonchi, No wheeze, No rales Cardiovascular: Regular rate, Regular Rhythm, Normal S1, Normal S2, No murmurs Abdomen: Soft, Non Tender, Non-Distended, No Hepato-splenomegaly Extremities: No edema, Capillary Refill Less than 3 Seconds Skin: No rashes, No breakdown Musculoskeletal: Right hip pain Neurological: No focal neurological deficits, moves her extremities except for her right lower extremity secondary to fracture Psych/Mental Status: Normal affect, appropriate Assessment & Plan Assessment/Plan (1) Fall: QUALIFIERS: Encounter type: initial encounter Qualified Code(s): W19.XXXA - Unspecified fall, initial encounter (2) Closed intertrochanteric fracture of right hip: QUALIFIERS: Encounter type: initial encounter Fracture alignment: nondisplaced Qualified Code(s): S72.144A - Nondisplaced intertrochanteric fracture of right femur, initial encounter for closed fracture (3) Osteoarthritis: QUALIFIERS: Osteoarthritis location: unspecified site Osteoarthritis type: unspecified Qualified Code(s): M19.90 - Unspecified osteoarthritis, unspecified site PLAN: Plan 1. Right intertrochanteric fracture secondary to mechanical fall complicated by multiple sclerosis and poor mobility at baseline status post repair 06/21/2024 ? PT/OT ? Pain management 2. Essential HTN/HLD ? Continue with her home blood pressure medications ? Will monitor make adjustments as necessary 3. DM2/morbid obesity ? Currently n.p.o., after surgery can continue with her insulin ? Accu-Cheks ACHS ? Sliding scale insulin ? Monitor make adjustments as necessary 4. History of cerebral aneurysm with seizure disorder ? Stable ? Continue with her home medications 5. Anxiety/depression ? Stable ? Continue with her home medications 6. GERD ? Stable ? Continue with PPI DVT: SCDs Charges/Coding Visit Charges Inpatient E&M: 59663 Subs Hosp L2
[2024-06-22] MEDS: Insulin Glargine-YFGN 100 UNIT/ML Pen 10 UNIT SC (10:33)
[2024-06-22] MEDS: Indapamide 2.5 MG Tablet 1.25 MG PO (10:33)
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
[2024-06-22 15:19] LABS: Bedside Glucose 442 mg/dL (74-106)
[2024-06-22 15:19] LABS: Bedside Glucose 446 mg/dL (74-106)
--- NOTE | 2024-06-22 16:10 | CASEMGMT ---
Pt nurse states pt would like an update. Noted ortho did not see pt today. Updated charge nurse who will contact ortho. [facility] RN CM into pt room, pt and at bedside. Updated both that we are checking to see when pt is medically ready to return. They deny further needs.
--- NOTE | 2024-06-22 16:32 | PN.ORTHO_ITS ---
Subjective Subjective Seen and examined. Doing okay. Complains of pain in her thigh denies any fevers chills nausea vomit shortness breath or chest pain she is ready for discharge Objective Data Objective Data Vital Signs: Vital Signs Temp Pulse Resp BP Pulse Ox O2 Del Method O2 Flow Rate 98.2 F 83 18 112/63 94 Room Air 2 06/22/24 13:51 06/22/24 13:51 06/22/24 13:51 06/22/24 13:51 06/22/24 13:51 06/22/24 13:51 06/21/24 17:03 Oxygen Flow Rate (L/min) 2 Oxygen Delivery Method Room Air Weight: 232 lb 2.348 oz Body Mass Index (BMI) 42.7 Intake & Output: Intake and Output for Last 24 Hours 06/20/24 06/21/24 06/22/24 23:59 23:59 23:59 Intake Total 2199.5 / 2199.5 100 / 100 Output Total 900 / 900 725 / 725 Balance 1299.5 / 1299.5 -625 / -625 Lab / Micro Data 06/22/24 06:02 06/22/24 06:02 Labs: Laboratory Results - last 24 hr 06/21/24 22:12: POC Glucose 446 H 06/21/24 22:14: POC Glucose 442 H 06/22/24 06:02: WBC 14.7 H, RBC 3.52 L, Hgb 9.5 L, Hct 29.7 L, MCV 84.4, MCH 27.0, MCHC 32.0, RDW Std Deviation 46.6 H, RDW Coeff of William 15.2 H, Plt Count 158, MPV 12.0, Immature Gran % (Auto) 0.700, Neut % (Auto) 90.0 H, Lymph % (Auto) 4.0 L, [place] % (Auto) 5.0, Eos % (Auto) 0.1, Baso % (Auto) 0.2, Absolute Neuts (auto) 13.2 H, Absolute Lymphs (auto) 0.59 L, Nucleated RBC % 0, Sodium 137, Potassium 4.3, Chloride 106, Carbon Dioxide 25.0, Anion Gap 6, BUN 25 H, C reatinine 1.04 H, Estim Creat Clear Calc 64.73, Est GFR (MDRD) Af Amer 69, Est GFR (MDRD) Non-Af 57 L, BUN/Creatinine Ratio 24.0 H, Glucose 321 H, Calcium 8.4 L, Phosphorus 2.6, Magnesium 1.7 06/22/24 06:24: POC Glucose 277 H Radiography Diagnostic Testing: Radiology Impression Hip X-Ray 06/21/24 11:00 IMPRESSION: ORIF of a right hip fracture. Electronically Signed: Aleksander Calderon MD at 16:43 EST , Physical Exam Const alert, oriented x3 and no apparent distress General Appearance: cooperative Extremity Extremity Narrative: Right hip dressing clean dry intact compartment soft neurovascular intact. Assessment & Plan Assessment/Plan (1) Closed intertrochanteric fracture of right hip: QUALIFIERS: Encounter type: initial encounter Fracture alignment: nondisplaced Qualified Code(s): S72.144A - Nondisplaced intertrochanteric fracture of right femur, initial encounter for closed fracture PLAN: Plan Postop day #1 right hip trochanteric femoral nail PT OT weightbearing as tolerated Resume preoperative Eliquis Follow-up in the office 2 weeks.
[2024-06-22 16:40] LABS: Bedside Glucose 325 mg/dL (74-106)
[2024-06-22 16:52] LABS: Bedside Glucose 427 mg/dL (74-106)
--- NOTE | 2024-06-22 17:39 | CASEMGMT ---
Social Work- SW completed transport and green sheet and placed on chart in the even that pt d/c over the holidays. Pt has acceptance to return to [facility]; precert pending. Plan: [facility]; precert pend [facility] Er[facility]
[2024-06-22] MEDS: Atorvastatin Calcium 10 MG Tablet PO (20:27)
[2024-06-22] MEDS: Polyethylene Glycol 3350 17 GM PACKET PO (20:36)
[2024-06-22 21:05] LABS: Bedside Glucose 339 mg/dL (74-106)
[2024-06-23 04:21] VITALS: BP 108/46; PULSE 73; RESP 16; TEMP 36.3; O2SAT 93
[2024-06-23 04:24] VITALS: PULSE 73; RESP 16; O2SAT 93
[2024-06-23 05:18] VITALS: BMI 42.7
[2024-06-23 05:25] LABS: Absolute Lymphocyte Count 1.21 X10^3/uL (0.83-4.51); Absolute Neutrophil Count 5.8 X10^3/uL (2.0-7.7); Basophil# 0.04 X10^3/uL; Basophil% 0.5 % (0-1); Eosinophil# 0.14 X10^3/uL; Eosinophils% 1.8 % (0-5); Hematocrit 25.9 % (37-47); Hemoglobin 8.2 g/dL (12.0-15.0); Lymphocyte # 1.21 X10^3/ul (0.83-4.51); Lymphocyte % 15.5 % (19-41); Mean Corp Hgb Conc 31.7 g/dL (32-36); Mean Corpuscular Hgb 26.5 pg (27.0-32.0); Mean Corpuscular Volume 83.8 fL (81-99); Mean Platelet Vol. 11.2 fl (6.2-12.0); Monocyte# 0.54 X10^3/uL; Monocyte% 6.9 % (0-10); NRBC Flagged by Analyzer 0 % (0-5); Neutrophil # 5.83 X10^3/uL (2.7-7.7); Neutrophil % 74.7 % (47-70); Platelet Count 118 K/mm3 (150-450); RBC Distribution Width CV 15.5 % (11.6-14.6); RBC Distribution Width SD 47.4 fl (35.1-43.9); Red Blood Count 3.09 M/mm3 (4.2-5.4); White Blood Count 7.8 K/mm3 (4.4-11.0)
[2024-06-23] MEDS: oxyCODONE 5 MG Tablet PO ×2 (05:43→13:01)
[2024-06-23] MEDS: QUEtiapine 25 MG Tablet 50 MG PO ×2 (05:44→13:04)
[2024-06-23] MEDS: Acetaminophen 500 MG Tablet 1000 MG PO ×2 (05:44→13:04)
[2024-06-23 06:00] LABS: Anion Gap 2 (5-15); BUN 23 mg/dL (7-18); BUN/Creat Ratio 29.6 RATIO (10-20); Calcium,Total 8.5 mg/dL (8.5-10.1); Chloride 107 mmol/L (98-107); Creatinine, Serum 0.78 mg/dL (0.55-1.02); EST Glomerular Filtration Rate 80 mL/min (>60); Est Glom Filt Rate - Afr Amer 97 mL/min (>60); Estimated Creatinine Clearance 86.35 ml/min; Glucose 308 mg/dL (74-106); Potassium 4.8 mmol/L (3.5-5.1); Sodium Level 139 mmol/L (136-145)
[2024-06-23] MEDS: Insulin Lispro 100 UNIT/ML INSULN.PEN SC ×2 (06:06→13:01)
[2024-06-23 06:29] LABS: Bedside Glucose 245 mg/dL (74-106)
[2024-06-23 07:17] VITALS: O2SAT 93
[2024-06-23] MEDS: Calcium Carbonate 500 MG Tablet PO ×2 (09:02→13:02)
[2024-06-23] MEDS: Famotidine 20 MG Tablet PO (09:04)
[2024-06-23] MEDS: APIXABAN 2.5 MG TABLET (WCH) PO (09:04)
[2024-06-23] MEDS: busPIRone 5 MG Tablet 10 MG PO (09:04)
[2024-06-23] MEDS: lamoTRIgine 150 MG Tablet PO (09:04)
[2024-06-23] MEDS: Venlafaxine XR 75 MG Capsule PO (09:04)
[2024-06-23] MEDS: Cholecalciferol (VIT D3) 25 MCG TABLET (1,000 UNITS) PO (09:06)
[2024-06-23] MEDS: Pantoprazole Sodium 40 MG Tablet PO (09:06)
[2024-06-23] MEDS: Potassium Chloride Oral Tablet 20 MEQ 40 MEQ PO (09:06)
[2024-06-23] MEDS: Indapamide 2.5 MG Tablet 1.25 MG PO (09:12)
[2024-06-23] MEDS: Insulin Glargine-YFGN 100 UNIT/ML Pen 24 UNIT SC (09:16)
[2024-06-23 09:19] VITALS: BP 98/45; PULSE 82; RESP 16; TEMP 36.9; O2SAT 99
[2024-06-23 12:00] LABS: Hematocrit 29.5 % (37-47); Hemoglobin 9.3 g/dL (12.0-15.0)
[2024-06-23 12:01] LABS: Bedside Glucose 285 mg/dL (74-106)
--- NOTE | 2024-06-23 12:12 | PCM.TXEXTCAR ---
Diet Diet Order/Speech Therapy: 06/21/24 15:12 Carb [Diet: Carbohydrate Controlled] Type of Dietary Supplement:: Glucerna Shake Routine Orders/Code Status Routine Lab Work: CBC and BMP Code Status: Full Code DC O2, CPAP, BIPAP needs Home O2 Discharge instructions: No Wound(s) RIGHT HIP: Wound Type: Surgical Incision Therapies Physical Therapy: Eval and Treat Occupational Therapy: Eval and Treat Problem/Diagnosis (1) Closed intertrochanteric fracture of right hip: Status: Acute Code(s): S72.141A - Displaced intertrochanteric fracture of right femur, initial encounter for closed fracture Plan 1. Right intertrochanteric fracture secondary to mechanical fall complicated by multiple sclerosis and poor mobility at baseline status post repair 06/21/2024 ? PT/OT ? Pain management 2. Essential HTN/HLD ? Continue with her home blood pressure medications ? Will monitor make adjustments as necessary 3. DM2/morbid obesity ? Currently n.p.o., after surgery can continue with her insulin ? Accu-Cheks ACHS ? Sliding scale insulin ? Monitor make adjustments as necessary 4. History of cerebral aneurysm with seizure disorder ? Stable ? Continue with her home medications 5. Anxiety/depression ? Stable ? Continue with her home medications 6. GERD ? Stable ? Continue with PPI DVT: SCDs Allergies/Procedures Done in Hospital Allergies adhesive tape Allergy (Severe, Verified 06/20/24 19:53) Other skin irritation oxycodone (From OxyContin) Allergy (Severe, Verified 06/20/24 19:53) Nausea/Vom/Diarrhea Procedures: None Type of Care/Length of Stay Estimated LOS: Convalescent Care Less Than 30 days Type of Care Needed: Skilled Rehab Potential: Good Prognosis: Good Additional Orders/Day of Discharge Day of Discharge: 06/23/24 Discharge Plan Admission Admit Date/Time: 06/20/24 21:05 Attending Provider: Rober Massey Primary Care Provider: Care Physician,No Primary Consulting Providers: Marko Benson Discharge Orders/Prescriptions Prescriptions: New oxycodone 5 mg Tablet 5 mg PO Q4H PRN PRN (Reason: Pain Score 4-10 Or Pre Pt/Ot) 3 Days Qty: 10 0RF Eliquis 5 mg Tablet 2.5 mg PO BID 28 Days Qty: 0 0RF Continued aspirin 81 mg tablet,chewable 81 mg PO DAILY lamotrigine 150 mg tablet 150 mg PO DAILY atorvastatin 10 mg tablet 10 mg PO QHS Patient Comments: TAKE 1 TABLET BY MOUTH EVERYDAY AT BEDTIME indapamide 1.25 mg tablet 1.25 mg PO DAILY Patient Comments: TAKE 1 TABLET BY MOUTH EVERY DAY IN THE MORNING FOR 30 DAYS lisinopril 10 mg tablet 10 mg PO DAILY venlafaxine 75 mg capsule,extended release 24hr 75 mg PO DAILY famotidine 20 mg Tablet 20 mg PO DAILY Qty: 0 0RF nicotine [Nicoderm CQ] 7 mg/24 hr patch 24 hour 1 patch transdermal DAILY quetiapine 50 mg tablet 50 mg PO TID buspirone 10 mg tablet 10 mg PO BID insulin lispro [Humalog Chi KwikPen U-100] 100 unit/mL insulin pen, half-unit 5 unit subcut TIDCM potassium chloride 20 mEq tablet,ER particles/crystals 40 meq PO BID pantoprazole 40 mg tablet,delayed release (DR/EC) 40 mg PO DAILY insulin lispro [Humalog KwikPen Insulin] 100 unit/mL insulin pen See Protocol subcut ACHS Protocol: 6. Sliding Scale Insulin Custom Condition: mg/dl range Dose/Route: Number of Units Condition: 150-224 Dose/Route: 1 Condition: 225-299 Dose/Route: 2 Condition: 300-374 Dose/Route: 3 Condition: 375-449 Dose/Route: 4 Protocol Text: Custom Sliding Scale Greater than 449 call physician insulin glargine-yfgn 100 unit/mL (3 mL) Insulin Pen 24 unit subcut BID Referrals / Follow Up: Care Physician,No Primary [Primary Care Provider] - Prem Valenzuela DO [Med Staff - Active Staff] - Within 2 Weeks Disposition Disposition (needs filled in before D/C Order can be placed): [facility] (1) Closed intertrochanteric fracture of right hip Qualifiers: Encounter type: initial encounter Fracture alignment: nondisplaced Qualified Code(s): S72.144A - Nondisplaced intertrochanteric fracture of right femur, initial encounter for closed fracture
[2024-06-23 14:21] VITALS: BP 133/59; PULSE 84; RESP 16; TEMP 36.6
--- NOTE | 2024-06-23 16:27 | DS.PCM_ITS ---
Providers Date of Admission: 06/20/24 Primary Care Physician: No Primary Care Phys Reason For Visit: RIGHT HIP FRACTURE AFTER FALL Diagnosis Discharge Diagnosis (1) Closed intertrochanteric fracture of right hip: Status: Acute Code(s): S72.141A - Displaced intertrochanteric fracture of right femur, initial encounter for closed fracture Qualifiers: Encounter type: initial encounter Fracture alignment: nondisplaced Q ualified Code(s): S72.144A - Nondisplaced intertrochanteric fracture of right femur, initial encounter for closed fracture Medications at Discharge Home Medications aspirin 81 mg chewable tablet 81 mg PO DAILY 10/25/21 atorvastatin 10 mg tablet 10 mg PO QHS 12/04/21 indapamide 1.25 mg tablet 1.25 mg PO DAILY 12/04/21 lisinopril 10 mg tablet 10 mg PO DAILY 03/16/24 venlafaxine 75 mg capsule,extended release 24 hr 75 mg PO DAILY 03/16/24 famotidine 20 mg tablet 20 mg PO DAILY #0 tabs 03/19/24 lamotrigine 150 mg tablet 150 mg PO DAILY 04/21/24 buspirone 10 mg tablet 10 mg PO BID 06/20/24 insulin glargine-yfgn 100 unit/mL (3 mL) subcutaneous pen 24 unit subcut BID 06/20/24 insulin lispro 100 unit/mL subcutaneous half-unit pen (Humalog Chi KwikPen (U-100)) 5 unit subcut TIDCM 06/20/24 insulin lispro 100 unit/mL subcutaneous pen (Humalog KwikPen (U-100) Insulin) See Protocol subcut ACHS 06/20/24 nicotine 7 mg/24 hr daily transdermal patch (Nicoderm CQ) 1 patch transdermal DAILY 06/20/24 pantoprazole 40 mg tablet,delayed release 40 mg PO DAILY 06/20/24 potassium chloride 20 mEq tablet,extended release(part/cryst) 40 meq PO BID 06/20/24 quetiapine 50 mg tablet 50 mg PO TID 06/20/24 apixaban 5 mg tablet (Eliquis) 2.5 mg (1/2 x 5 mg) PO BID 28 days #0 tabs 06/23/24 oxycodone 5 mg tablet 5 mg PO Q4H PRN PRN Pain Score 4-10 Or Pre Pt/Ot 3 days #10 tabs 06/23/24 Hospital Course Operations - (Cephalo-medullary fixation right hip) Procedures None Summary of Care Provided Minutes Spent on Discharge: 33 Hospital Course: Per HPI: WALDO ROMAN, is a 59 F who with a past medical history of essential hypertension; on lisinopril and indapamide, hyperlipidemia; on atorvastatin, morbid obesity; with a BMI of 41 this admission, LINDA; on CPAP, DM-2; of unknown control on insulin lispro 5 units subcu 3 times daily and insulin glargine 24 units twice daily, history of multiple sclerosis; with chronically poor mobility, history of depression with anxiety; on venlafaxine, buspirone and quetiapine, history of irregular heartbeat, history of asthma; with chronic cough, history of tobacco abuse; on nicotine patch, history of colon polyps, history of cerebral aneurysm; s/p clamping, history of seizure disorder after aneurysm; on lamotrigine, history of hysterectomy, history of lumpectomy, history of LASIK eye surgery, remote history of tubal ligation, GERD; on famotidine plus pantoprazole and OA; with chronic back pain who presents to [facility] ER complaining of Right hip pain after fall. Ms. Roman reports her symptoms began approximately 1 hour prior to arrival when she was attempting to get out of bed to get to her wheelchair when she fell and hit her head on her on the bed frame and her Right hip and arm onto the floor. She denies any loss of consciousness with her fall. Since her fall she has had severe pain primarily in her Right hip but she additionally complains of Right thigh, knee, lower leg and ankle pain. She describes the pain as aching, consistent and severe with nothing seeming to make the pain better and movement making it worse. She denies any new paresthesias or focal neurologic weakness. She denies associated fever, chills, nausea, vomiting, diarrhea, chest pain or shortness of breath but she does admit to diffuse Right-sided pain primarily in her hip along with mild tension-type headache. In the ER she was noted to have X-ray evidence of faint cortical irregularity involving the Right intertrochanteric region concerning for nondisplaced fracture with degenerative findings in the lumbar spine and mild degenerative findings in both hips and she was then admitted to the general medical floor for ongoing care for stay that is expected to extend beyond 2 midnights. Hospital Course: 1. Right intertrochanteric femur fracture secondary to mechanical fall complicated by multiple sclerosis and poor mobility at baseline status post repair 06/21/2024?59-year-old female presented to the hospital after mechanical fall. She has a history of MS which contributed to her mechanical fall and she developed a right intertrochanteric femur fracture. This was repaired by orthopedic surgery. She did have some postoperative anemia which stabilized at a hemoglobin of 5.3 on the day of discharge. I discussed with her and her the plan for discharge today they expressed understanding of the risk benefits going to the half-way and would like for her to go today. Continue with pain management on discharge and outpatient follow-up in 2 weeks with orthopedic surgery. Will continue with low-dose Eliquis 2.5 mg p.o. twice daily on discharge for DVT prophylaxis after hip surgery. 2. Essential hypertension, hyperlipidemia, type 2 diabetes, morbid obesity, history of cerebral aneurysm with seizure disorder, anxiety, depression, GERD are all chronic medical conditions which complicate her care. Her home medications were continued where appropriate. Physical Exam Narrative General: Alert, Oriented x3, cooperative, No apparent distress HEENT: Atraumatic, PERRLA, EOMI, Normocephalic Oral: Moist Mucosa Neck: Supple, No JVD Lungs: Diminished, Normal air movement, No rhonchi, No wheeze, No rales Cardiovascular: Regular rate, Regular Rhythm, Normal S1, Normal S2, No murmurs Abdomen: Soft, Non Tender, Non-Distended, No Hepato-splenomegaly Extremities: No edema, Capillary Refill Less than 3 Seconds Skin: No rashes, No breakdown Musculoskeletal: Right hip pain Neurological: No focal neurological deficits, moves her extremities except for her right lower extremity secondary to fracture Psych/Mental Status: Normal affect, appropriate Weight / BMI Weight Weight: 232 lb 5.875 oz Body Mass Index (BMI) 42.7 ABG / Lab / Microbiology Data 06/23/24 11:50 06/23/24 05:05 Laboratory: Laboratory Results - last 24 hr 06/22/24 11:26: POC Glucose 325 H 06/22/24 16:25: POC Glucose 427 H 06/22/24 20:25: POC Glucose 339 H 06/23/24 05:05: WBC 7.8, RBC 3.09 L, Hgb 8.2 L, Hct 25.9 L, MCV 83.8, MCH 26.5 L , MCHC 31.7 L, RDW Std Deviation 47.4 H, RDW Coeff of William 15.5 H, Plt Count 118 L, MPV 11.2, Immature Gran % (Auto) 0.600, Neut % (Auto) 74.7 H, Lymph % (Auto) 15.5 L, [place] % (Auto) 6.9, Eos % (Auto) 1.8, Baso % (Auto) 0.5, Absolute Neuts (auto) 5.8, Absolute Lymphs (auto) 1.21, Nucleated RBC % 0, Sodium 139, Potassium 4.8, Chloride 107, Carbon Dioxide 31.0, Anion Gap 2 L, BUN 23 H, Creatinine 0.78, Estim Creat Clear Calc 86.35, Est GFR (MDRD) Af Amer 97, Est GFR (MDRD) Non-Af 80, BUN/Creatinine Ratio 29.6 H, Glucose 308 H, Calcium 8.5 06/23/24 06:05: POC Glucose 245 H 06/23/24 11:42: POC Glucose 285 H 06/23/24 11:50: Hgb 9.3 L, Hct 29.5 L D/C Instructions DC O2, CPAP, BIPAP Needs Home O2 Discharge instructions: No Meaningful Use Info Meaningful Use Meaningful Use Diagnoses (Choose all that apply): None applicable Ischemic Stroke Statin Dosing Therapy Reference: STATIN DOSE THERAPY REFERENCE: * Patients > 75 years receive moderate or high dose statin therapy. * Patients 75 years or YOUNGER should receive HIGH intensity statin dose unless contraindicated. You will be required to document reason for non-treatment if statin daily dose does not meet guidelines. HIGH DOSE STATIN THERAPY DAILY Atorvastatin > than or = to 40 mg Rosuvastatin > than or = to 20 mg Amlodipine + Atorvastatin > than or = to 2.5/40 mg Ezetimibe + Simvastatin 10/80 mg Simvastatin 80mg Discharge Plan Admission Admit Date/Time: 06/20/24 21:05 Attending Provider: Rober Massey Primary Care Provider: Care Physician,No Primary Consulting Providers: Marko Benson Discharge Orders/Prescriptions Prescriptions: New oxycodone 5 mg Tablet 5 mg PO Q4H PRN PRN (Reason: Pain Score 4-10 Or Pre Pt/Ot) 3 Days Qty: 10 0RF Eliquis 5 mg Tablet 2.5 mg PO BID 28 Days Qty: 0 0RF Continued aspirin 81 mg tablet,chewable 81 mg PO DAILY lamotrigine 150 mg tablet 150 mg PO DAILY atorvastatin 10 mg tablet 10 mg PO QHS Patient Comments: TAKE 1 TABLET BY MOUTH EVERYDAY AT BEDTIME indapamide 1.25 mg tablet 1.25 mg PO DAILY Patient Comments: TAKE 1 TABLET BY MOUTH EVERY DAY IN THE MORNING FOR 30 DAYS lisinopril 10 mg tablet 10 mg PO DAILY venlafaxine 75 mg capsule,extended release 24hr 75 mg PO DAILY famotidine 20 mg Tablet 20 mg PO DAILY Qty: 0 0RF nicotine [Nicoderm CQ] 7 mg/24 hr patch 24 hour 1 patch transdermal DAILY quetiapine 50 mg tablet 50 mg PO TID buspirone 10 mg tablet 10 mg PO BID insulin lispro [Humalog Chi KwikPen U-100] 100 unit/mL insulin pen, half- unit 5 unit subcut TIDCM potassium chloride 20 mEq tablet,ER particles/crystals 40 meq PO BID pantoprazole 40 mg tablet,delayed release (DR/EC) 40 mg PO DAILY insulin lispro [Humalog KwikPen Insulin] 100 unit/mL insulin pen See Protocol subcut ACHS Protocol: 6. Sliding Scale Insulin Custom Condition: mg/dl range Dose/Route: Number of Units Condition: 150-224 Dose/Route: 1 Condition: 225-299 Dose/Route: 2 Condition: 300-374 Dose/Route: 3 Condition: 375-449 Dose/Route: 4 Protocol Text: Custom Sliding Scale Greater than 449 call physician insulin glargine-yfgn 100 unit/mL (3 mL) Insulin Pen 24 unit subcut BID Referrals / Follow Up: Prem Valenzuela DO [Med Staff - Active Staff] - Within 2 Weeks Care Physician,No Primary [Primary Care Provider] - Disposition Disposition (needs filled in before D/C Order can be placed): Group Home Facility Charges/Coding Visit Charges Inpatient E&M: 84899 Disch Hosp >30min
== END 2024-06-23 15:45 | disposition skilled nursing facility (03) | DRG 481 ==
LOC: ED 18:46 → MS3 20:19
PROVIDERS: Orthopaedic Surgery; Admitting Provider Internal Medicine; Emergency Provider Emergency Medicine; Visit Provider Family Medicine
PROC: 0QS606Z Reposition Right Upper Femur with Intramedullary Internal Fixation Device, Open Approach (ICD-10-PCS; principal; 2024-06-21 10:00)
DX: S72.144A Nondisplaced intertrochanteric fracture of right femur, initial encounter for closed fracture (principal); Z68.41 Body mass index [BMI] 40.0-44.9, adult; D64.89 Other specified anemias; E11.65 Type 2 diabetes mellitus with hyperglycemia; E66.01 Morbid (severe) obesity due to excess calories; E78.00 Pure hypercholesterolemia, unspecified; G40.909 Epilepsy, unspecified, not intractable, without status epilepticus; G35 Multiple sclerosis; I10 Essential (primary) hypertension; F32.A Depression, unspecified; Z79.4 Long term (current) use of insulin; K21.9 Gastro-esophageal reflux disease without esophagitis; G47.33 Obstructive sleep apnea (adult) (pediatric); F41.9 Anxiety disorder, unspecified; W18.39XA Other fall on same level, initial encounter; Z74.09 Other reduced mobility; Z79.01 Long term (current) use of anticoagulants; Z79.82 Long term (current) use of aspirin; Z79.899 Other long term (current) drug therapy; Z86.73 Personal history of transient ischemic attack (TIA), and cerebral infarction without residual deficits; Z87.891 Personal history of nicotine dependence
CPT/HCPCS: 36415; 70450; 71045; 73030; 73502; 73562; 73600; 73700; 76000; 80048; 80053; 82962; 83036; 83735; 84100; 84443; 85014; 85018; 85025; 85610; 85730; 86850; 86900; 86901; 93005; 97110; 97116; 97162; 97166; 97530; 97535; 99285; C1713; A4216; J2405

== ENCOUNTER 2024-11-07 17:13 | Emergency (ER) | payer MEDICARE, MEDICAID, SELFPAY ==
[2024-11-07 17:14] VITALS: BP 142/78; PULSE 89; RESP 15; TEMP 36.6; O2SAT 98; BMI 45.0
--- NOTE | 2024-11-07 17:27 | CT_ITS ---
PROCEDURE: BRAIN/HEAD WITHOUT CONTRAST 11/07/2024 REASON FOR EXAM: HEAD INJURY TECHNIQUE: Head CT without intravenous contrast. Coronal and Sagittal reconstruction series were provided. One or more dose reduction techniques were used (e.g., Automated exposure control, adjustment of the mA and/or kV according to patient size, use of iterative reconstruction technique. COMPARISON: CT brain 06/20/2024 FINDINGS: No acute intracranial hemorrhage, mass, mass effect, midline shift or pathologic extra-axial fluid collection. Postoperative changes left frontotemporal craniotomy and left MCA region aneurysm clipping with dense streak artifact. Mild parenchymal atrophy with commensurate increase in CSF containing spaces. Patchy white matter hypodensities, patient demographics favor chronic microvascular ischemic changes. Paranasal sinuses and mastoid air cells are clear. The calvarium is grossly intact. CT/Brain/Head without Contrast IMPRESSION: No acute intracranial abnormality. Postoperative changes of left MCA distribution aneurysm clipping. Chronic microvascular ischemia and involutional changes. Reading Location: [facility]
--- NOTE | 2024-11-07 17:28 | EDS_ITS ---
<Statement entered by Jhoan Prabhakar DO - 11/07/24 23:02> Patient was seen and examined with physician retail loan originator assistant [place] All components of the history and physical confirmed and agreed. History of present illness and physical exam: Patient is a 59-year-old female past medical Struve pretension, hyperlipidemia, anxiety, seizures, asthma, LINDA who presented to the emergency department with a chief complaint of left ankle pain. She states that she has had pain over the last 2 weeks or so. States that both of her ankles have been bothering her however she felt like her left ankle gave out on her today and she had pain after her fall therefore she came here for the evaluation management. Patient denies any blood thinning medications. States that she not pass out she did not lose consciousness she members the entire event. Review of systems: Reviewed above Physical exam: Agree with above MDM Patient is a 59-year-old female who presented to the emergency department the chief complaint of left ankle pain following hitting her head. States that this pain has been going off-and-on for the last 2 weeks however today she felt this was worse her ankle inverted while standing in the bathroom causing a fall backwards therefore she came here for further evaluation management. Patient CT head and brain without contrast showed no acute intracranial hemorrhage. Patient x-ray of her left ankle was reviewed by myself by radiology which showed slight widening of the mortise concerning for ligamentous injury. Patient was placed in a walking boot and referred to podiatry. She is encouraged to ice, elevate and return for worsening symptoms or concerns. Patient was offered pain medication here and she declined. She was advised to rotate Tylenol ibuprofen [id number] all question concerns answered she was discharged home in stable condition. Final impression: Left ankle sprain Disposition: Patient will be discharged home in stable condition Supervising attending attestation: Jhoan Prabhakar D.O. [facility] History of Present Illness Chief Complaint: Lower Extremity Injury Narrative Narrative: Patient presenting today due to pain in her left ankle that she has had over the past 2 weeks or so. She reports that she was having similar pain in her right ankle a few weeks ago but now it is worse on the left. It hurts worse with ambulation. She reports that today she was standing in her bathroom and her left ankle gave out and inverted, causing her to fall backwards and hit the back of her head against the ground. She denies any LOC, headache, nausea, vomiting, and use of blood thinners. She denies any other injury from the fall. She has been able to ambulate on her ankle with her walker. [facility] Medical History Morbid obesity with BMI of 40.0-44.9, adult History of multiple sclerosis Hyperlipidemia Hypertension Diabetes mellitus Post-menopausal Depression Anxiety Arthritis Diabetes High cholesterol Back pain Loss of consciousness Seizures Multiple sclerosis Gastric reflux Smoker CPAP (continuous positive airway pressure) dependence Sleep apnea Asthma Chronic cough History of pain when walking History of edema Hypertension History of irregular heartbeat Colonic polyp Aneurysm Multiple sclerosis Home Medications ?Medication ?Instructions ?Recorded ?Last Taken ?Type aspirin 81 mg chewable tablet 81 mg PO DAILY 10/25/21 Unknown History atorvastatin 10 mg tablet 10 mg PO QHS 12/04/21 Unknow n History indapamide 1.25 mg tablet 1.25 mg PO DAILY 12/04/21 Un known History lisinopril 10 mg tablet 10 mg PO DAILY 03/16/24 Unkn own History venlafaxine 75 mg capsule,extended 75 mg PO DAILY 02/22 10/14 Unknown History release 24 hr famotidine 20 mg tablet 20 mg PO DAILY #0 tabs 03/19 Unknown Rx lamotrigine 150 mg tablet 150 mg PO DAILY 04/21/24 Unk nown History buspirone 10 mg tablet 10 mg PO BID 06/20/24 Unknow n History insulin glargine-yfgn 100 unit/mL 24 unit subcut BID 1 08/21/23 Unknown History (3 mL) subcutaneous pen insulin lispro 100 unit/mL 5 unit subcut TIDCM 4 Unknown History subcutaneous half-unit pen (Humalog Chi KwikPen (U-100)) insulin lispro 100 unit/mL See Protocol subcut ACHS Unknown History subcutaneous pen (Humalog KwikPen (U-100) Insulin) nicotine 7 mg/24 hr daily 1 patch transdermal DAILY Unknown History transdermal patch (Nicoderm CQ) pantoprazole 40 mg tablet,delayed 40 mg PO DAILY 06/20 Unknown History release potassium chloride 20 mEq 40 meq PO BID 06/20/24 Unkno wn History tablet,extended release(part/cryst) quetiapine 50 mg tablet 50 mg PO TID 06/20/24 Unknow n History Allergy/AdvReac Type Severity Reaction Status Date / Time adhesive tape Allergy Severe Other Verified 11/07/24 17:16 oxycodone (From OxyContin) Allergy Severe Nausea/Vom/ Verified 11/07/24 17:16 Diarrhea Family History Uncle Colon cancer Surgical History Hx of LASIK Tubal ligation status Status post clamping of cerebral aneurysm Hx of lumpectomy History of hysterectomy History of tonsillectomy and adenoidectomy Social History household members: spouse housing: house Smoking Status: Former smoker ROS ROS ED Constitutional Constitutional ED: Denies chills or fever(s) Cardiovascular Cardiovascular: Denies chest pain Respiratory/Chest Respiratory/Chest: Denies dyspnea Gastrointestinal Gastrointestinal: Denies nausea or vomiting Musculoskeletal Musculoskeletal: Reports arthralgias Integumentary Denies Abrasions Neurologic Neurologic: Denies headache(s) EXAM Physical Exam Const Vital Signs: 11/07/24 17:14 11/07/24 19:30 Temperature 97.8 F 98.0 F Temperature Source Oral Pulse Rate 89 78 Respiratory Rate 15 16 Blood Pressure 142/78 H 136/75 H Blood Pressure Mean 99 95 Pulse Ox 98 95 Oxygen Delivery Method Room Air Positive well nourished, well developed and no apparent distress General Appearance ED: well developed HEENT Reports normocephalic and head/scalp atraumatic Mouth ED: Yes moist mucous membranes normal Eyes PERRL and EOMs intact bilaterally Neck full ROM and supple Neck Narrative: Full range of motion, no midline cervical tenderness Chest Wall inspection of chest normal Resp normal respiratory effort and clear to auscultation bilaterally Cardio regular rate and regular rhythm Back/Spine normal ROM and normal to inspection Extremity normal to inspection and full ROM Extremity Narrative: Minimal pain to the left lateral malleolus, full range of motion to the left ankle, no swelling, no bruising. No pain to palpation to the right lateral or medial malleolus, bilateral DP pulse 2+, good cap refill, sensation intact. Neuro oriented x3, CN's II-XII intact bilaterally, moves all extremities, no focal motor deficits and no sensory deficits noted Sensorium / Orientation: awake and alert Psych mental status grossly normal and thought process normal Skin no rashes or lesions noted and no wounds MDM MDM MDM Narrative Medical decision making narrative: Patient presenting today due to pain in her left ankle that has been ongoing over the past 2 weeks. Today it was worse and her ankle inverted while she was standing in the bathroom causing her to fall backwards and hit her head against the ground. She denies LOC or use of blood thinners. Head CT obtained to assess for intracranial bleed and is negative. She did not have any neck pain or C-spine tenderness to necessitate need for cervical spine imaging. X-ray of the left ankle obtained to assess for fracture and shows slight widening of the mortise concerning for ligamentous injury. She will be given a walking boot and referral to podiatry. She is able to ambulate. I did offer analgesia here and she declined. She can take Tylenol and ibuprofen as needed for her pain at home. RICE instructions discussed and patient discharged home in stable condition. Radiography X-Ray: Read by ED Physician Diagnostic Testing: Clinical Impression(s) from Imaging Studies Brain CT 11/07/24 17:27 IMPRESSION: No acute intracranial abnormality. Postoperative changes of left MCA distribution aneurysm clipping. Chronic microvascular ischemia and involutional changes. Reading Location: [facility] Ankle X-Ray 11/07/24 17:50 IMPRESSION: Slight widening of the ankle mortise, concerning for ligamentous injury. Recommend MRI of the ankle. Reading Location: [facility] Discharge Plan Triage Chief Complaint: Lower Extremity Injury ED Midlevel Provider: Yeimy Coelho ED Provider: Jhoan Prabhakar Dx/Rx/DC Orders Clinical Impression: Left ankle sprain, Head injury Instructions: ED Ankle Sprain (Adult) Prescriptions: No Action aspirin 81 mg tablet,chewable 81 mg PO DAILY lamotrigine 150 mg tablet 150 mg PO DAILY atorvastatin 10 mg tablet 10 mg PO QHS Patient Comments: TAKE 1 TABLET BY MOUTH EVERYDAY AT BEDTIME indapamide 1.25 mg tablet 1.25 mg PO DAILY Patient Comments: TAKE 1 TABLET BY MOUTH EVERY DAY IN THE MORNING FOR 30 DAYS lisinopril 10 mg tablet 10 mg PO DAILY venlafaxine 75 mg capsule,extended release 24hr 75 mg PO DAILY famotidine 20 mg Tablet 20 mg PO DAILY Qty: 0 0RF nicotine [Nicoderm CQ] 7 mg/24 hr patch 24 hour 1 patch transdermal DAILY quetiapine 50 mg tablet 50 mg PO TID buspirone 10 mg tablet 10 mg PO BID insulin lispro [Humalog Chi KwikPen U-100] 100 unit/mL insulin pen, half- unit 5 unit subcut TIDCM potassium chloride 20 mEq tablet,ER particles/crystals 40 meq PO BID pantoprazole 40 mg tablet,delayed release (DR/EC) 40 mg PO DAILY insulin lispro [Humalog KwikPen Insulin] 100 unit/mL insulin pen See Protocol subcut ACHS Protocol: 6. Sliding Scale Insulin Custom Condition: mg/dl range Dose/Route: Number of Units Condition: 150-224 Dose/Route: 1 Condition: 225-299 Dose/Route: 2 Condition: 300-374 Dose/Route: 3 Condition: 375-449 Dose/Route: 4 Protocol Text: Custom Sliding Scale Greater than 449 call physician insulin glargine-yfgn 100 unit/mL (3 mL) Insulin Pen 24 unit subcut BID Primary Care Provider: Care Physician,No Primary Referrals: Gal Hurst DPM [Med Staff - Active Staff] - 5-7 Days Care Physician,No Primary [Primary Care Provider] - Activity Restrictions/Additional Instructions: Please follow-up with podiatry and return for any other concerns. Print Language: Turkmen Disposition Disposition: Home, Self Care Discharge Date/Time: 11/07/24 19:41
--- NOTE | 2024-11-07 17:50 | RAD_ITS ---
PROCEDURE: ANKLE MIN 3 VIEWS 11/07/2024 REASON FOR EXAM: ANKLE PAIN TECHNIQUE: 3 views of the left ankle COMPARISON: None FINDINGS: No acute fracture or dislocation slight widening of the ankle mortise. Diffuse osteopenia. Small plantar calcaneal enthesophyte. No significant soft tissue swelling. RAD/Ankle min 3 Views IMPRESSION: Slight widening of the ankle mortise, concerning for ligamentous injury. Recom mend MRI of the ankle. Reading Location: [facility]
[2024-11-07 19:30] VITALS: BP 136/75; PULSE 78; RESP 16; TEMP 36.7; O2SAT 95
== END 2024-11-07 19:41 | disposition home or self-care (01) ==
PROVIDERS: Emergency Provider Emergency Medicine; Visit Provider Emergency Medicine
DX: S09.90XA Unspecified injury of head, initial encounter (principal); E11.9 Type 2 diabetes mellitus without complications; S93.402A Sprain of unspecified ligament of left ankle, initial encounter; Z87.891 Personal history of nicotine dependence; I10 Essential (primary) hypertension; E78.00 Pure hypercholesterolemia, unspecified; J45.909 Unspecified asthma, uncomplicated; W19.XXXA Unspecified fall, initial encounter
CPT/HCPCS: 70450; 73610; 99284

== ENCOUNTER 2024-11-09 21:36 | Emergency (ER) | payer MEDICARE, MEDICAID, SELFPAY ==
[2024-11-09 21:37] VITALS: BP 126/71; PULSE 86; RESP 16; TEMP 36.9; O2SAT 98; BMI 45.5
--- NOTE | 2024-11-09 22:08 | ED.VIS.LOWEX ---
HPI History of Present Illness HPI Narrative: 59-year-old female history of insulin dependent diabetes, hypertension and prior right hip surgery. Currently is in the left ankle boot. Is going to see a forest pathology professor this coming Friday. States that her right ankle twisted and 90 she is having pain. No prior right ankle surgery or significant history. Denies any fever or chills. Chief Complaint: Lower Extremity Injury Informant: patient and spouse/S.O. Occured/Mechanism Mechanism/Context: Yes injury Onset/Context/Timing Onset: Today Context: Sudden Onset Timing: Continuous Quality of Pain: Dull and Aching Current Severity: Mild Maximum Severity: Mild Associated Symptoms Associated Symptoms: Negative for Parasthesia, Weakness or Loss of Funtion Narrative Narrative: 59-year-old diabetic female right ankle pain after twisting it tonight. Wearing a boot on the left ankle from a prior injury there. Prior similar symptoms: Yes Recent Illness/Hospitalization: No PFSH PFSH Medical History Morbid obesity with BMI of 40.0-44.9, adult History of multiple sclerosis Hyperlipidemia Hypertension Diabetes mellitus Post-menopausal Depression Anxiety Arthritis Diabetes High cholesterol Back pain Loss of consciousness Seizures Multiple sclerosis Gastric reflux Smoker CPAP (continuous positive airway pressure) dependence Sleep apnea Asthma Chronic cough History of pain when walking History of edema Hypertension History of irregular heartbeat Colonic polyp Aneurysm Multiple sclerosis Home Medications ?Medication ?Instructions ?Recorded ?Last Taken ?Type aspirin 81 mg chewable tablet 81 mg PO DAILY 10/25/21 Unknown History atorvastatin 10 mg tablet 10 mg PO QHS 12/04/21 Unknown History indapamide 1.25 mg tablet 1.25 mg PO DAILY 12/04/21 Unknown History lisinopril 10 mg tablet 10 mg PO DAILY 03/16/24 Unknown History venlafaxine 75 mg capsule,extended 75 mg PO DAILY 03/16/24 Unknown History release 24 hr famotidine 20 mg tablet 20 mg PO DAILY #0 tabs 03/19/24 Unknown Rx lamotrigine 150 mg tablet 150 mg PO DAILY 04/21/24 Unknown History buspirone 10 mg tablet 10 mg PO BID 06/20/24 Unknown History insulin glargine-yfgn 100 unit/mL 24 unit subcut BID 06/20/24 Unknown History (3 mL) subcutaneous pen insulin lispro 100 unit/mL 5 unit subcut TIDCM 06/20/24 Unknown History subcutaneous half-unit pen (Humalog [place] KwikPen (U-100)) insulin lispro 100 unit/mL See Protocol subcut ACHS 06/20/24 Unknown History subcutaneous pen (Humalog KwikPen (U-100) Insulin) nicotine 7 mg/24 hr daily 1 patch transdermal DAILY 06/20/24 Unknown History transdermal patch (Nicoderm CQ) pantoprazole 40 mg tablet,delayed 40 mg PO DAILY 06/20/24 Unknown History release potassium chloride 20 mEq 40 meq PO BID 06/20/24 Unknown History tablet,extended release(part/cryst) quetiapine 50 mg tablet 50 mg PO TID 06/20/24 Unknown History Allergy/AdvReac Type Severity Reaction Status Date / Time adhesive tape Allergy Severe Other Verified 11/07/24 17:16 oxycodone (From OxyContin) Allergy Severe Nausea/Vom/ Verified 11/07/24 17:16 Diarrhea Family History Uncle Colon cancer Surgical History Hx of LASIK Tubal ligation status Status post clamping of cerebral aneurysm Hx of lumpectomy History of hysterectomy History of tonsillectomy and adenoidectomy Social History household members: spouse housing: house Smoking Status: Former smoker ROS ROS ED ROS Narrative Denies recent illness. Constitutional Constitutional ED: Denies chills or fever(s) Eyes Eyes: Denies blurry vision ENT ENT ED: Denies ear pain Cardiovascular Cardiovascular: Denies chest pain Respiratory/Chest Respiratory/Chest: Denies cough Gastrointestinal Gastrointestinal: Denies abdominal pain Genitourinary Genitourinary ED: Denies dysuria Musculoskeletal Musculoskeletal: Denies arthralgias Integumentary Denies abscess Neurologic Neurologic: Denies headache(s) Psychiatric Psychiatric: Denies anxiety Endocrine Endocrinology: Denies polydipsia Hematologic/Lymphatic Hematologic/Lymphatic: Denies easy bleeding, easy bruising or lymphadenopathy Allergic/Immunologic Allergic/Immunologic ED: Denies mouth swelling, tongue swelling or urticaria EXAM Physical Exam Narrative Exam Narrative: 59-year-old female lying in bed. Vital signs are stable afebrile. H EENT exam pupils round reactive light. No trauma to her face or scalp. Nontender. C-spine nontender. Back nontender. Lungs clear to auscultation bilaterally. Heart regular rhythm rate about 85 no murmur. Chest wall ribs nontender. Abdomen soft nontender. Pelvic girdle intact. Both upper extremities nontender. Normal director of manufacturing strength. Left lower extremity ankles in a boot. She has normal dorsi plantarflexion. Normal DP pulse. Normal touch sensation. She will wiggle her toes. Ankle is nontender nonswollen. Right hip and knee are nontender. Calf nontender nonswollen no cord. No edema. Right ankle is mild tenderness both medially and laterally. No significant swelling. Dorsi plantarflexion intact. Normal DP pulse. Able to wiggle her toes. Foot nontender. Positive touch sensation. Neurologically she is awake and alert. No focal motor deficits. Const Vital Signs: 11/09/24 21:37 Temperature 98.5 F Temperature Source Oral Pulse Rate 86 Respiratory Rate 16 Blood Pressure 126/71 H Blood Pressure Mean 89 Pulse Ox 98 Positive well nourished and well developed; Negative for cachectic, contractures or unkempt General Appearance ED: well developed and NAD; Negative for unkempt, cachectic or contractures Nutritional Appearance: Negative for cachectic HEENT Reports moist mucous membranes normocephalic and atraumatic Eyes PERRL Neck full ROM and supple Chest Wall inspection of chest normal and palpation of chest normal Resp normal respiratory effort, no retractions and clear to auscultation bilaterally Cardio regular rate, regular rhythm, S1 normal heart sound, S2 normal heart sound and no murmurs GI non-tender, non-distended and no masses Palpation: soft; Negative for tender, guarding or rebound tenderness present Back/Spine no CVA tenderness Extremity normal to inspection and full ROM Extremity Narrative: Mild tenderness medial lateral right ankle. Normal dorsi plantarflexion. Achilles intact. Palpable DP pulse. No discoloration. No swelling. No redness or warmth. Able to wiggle her toes. Touch sensation. General Extremety ED: Negative for edema General Extremity: Negative for edema Neuro oriented x3, CN's II-XII intact bilaterally and moves all extremities Sensorium / Orientation: oriented to person, oriented to place and oriented to time; Negative for orientation impaired Motor Exam: strength 5/5 throughout Psych mental status grossly normal Appearance: Negative for unkempt Skin no wounds Lesions: no lesions Rashes: no rashes Trauma: Negative for abrasion or laceration MDM MDM MDM Narrative Medical decision making narrative: 59-year-old female states she twisted her right ankle tonight her left ankle is in a boot from a prior injury. X-ray of be obtained. My clinical suspicion is low for fracture or dislocation. I think most likely is an ankle sprain or soft tissue injury. She requested some for pain to be given 1 Vicodin. Repeat exam at 10:28 PM unchanged. I went over the x-ray results with the patient. Treated as an ankle sprain. Ice and elevate. Tylenol and Motrin. Follow-up as needed. History & Record Review Discussion w/independent historian: Patient and Family Additional record(s) reviewed:: Prior inpatient record, Prior outpatient record, Prior ED visit and Prior labs Radiography Diagnostic Testing: Right ankle x-ray, 3 views, interpreted by myself shows no acute fracture. No dislocation. Chronic changes. Discharge Plan Triage Chief Complaint: Lower Extremity Injury ED Provider: Pascual Mendoza Dx/Rx/DC Orders Clinical Impression: Inversion sprain of right ankle, History of diabetes mellitus Instructions: ED Ankle Sprain (Adult) Prescriptions: No Action aspirin 81 mg tablet,chewable 81 mg PO DAILY lamotrigine 150 mg tablet 150 mg PO DAILY atorvastatin 10 mg tablet 10 mg PO QHS Patient Comments: TAKE 1 TABLET BY MOUTH EVERYDAY AT BEDTIME indapamide 1.25 mg tablet 1.25 mg PO DAILY Patient Comments: TAKE 1 TABLET BY MOUTH EVERY DAY IN THE MORNING FOR 30 DAYS lisinopril 10 mg tablet 10 mg PO DAILY venlafaxine 75 mg capsule,extended release 24hr 75 mg PO DAILY famotidine 20 mg Tablet 20 mg PO DAILY Qty: 0 0RF nicotine [Nicoderm CQ] 7 mg/24 hr patch 24 hour 1 patch transdermal DAILY quetiapine 50 mg tablet 50 mg PO TID buspirone 10 mg tablet 10 mg PO BID insulin lispro [Humalog [place] U-100] 100 unit/mL insulin pen, half-unit 5 unit subcut TIDCM potassium chloride 20 mEq tablet,ER particles/crystals 40 meq PO BID pantoprazole 40 mg tablet,delayed release (DR/EC) 40 mg PO DAILY insulin lispro [Humalog KwikPen Insulin] 100 unit/mL insulin pen See Protocol subcut ACHS Protocol: 6. Sliding Scale Insulin Custom Condition: mg/dl range Dose/Route: Number of Units Condition: 150-224 Dose/Route: 1 Condition: 225-299 Dose/Route: 2 Condition: 300-374 Dose/Route: 3 Condition: 375-449 Dose/Route: 4 Protocol Text: Custom Sliding Scale Greater than 449 call physician insulin glargine-yfgn 100 unit/mL (3 mL) Insulin Pen 24 unit subcut BID Primary Care Provider: Care Physician,No Primary Referrals: Care Physician,No Primary [Primary Care Provider] - Activity Restrictions/Additional Instructions: Ice and elevate the ankle to decrease pain and swelling. Increase activity slowly as tolerated. Motrin and Tylenol for pain. Follow-up with your forest pathology professor as needed for your right ankle injury. Print Language: Liberian Disposition Disposition: Home, Self Care
[2024-11-09] MEDS: HYDROcodone Bitartrate/Apap 5/325 Tablet PO (22:10)
--- NOTE | 2024-11-09 22:15 | RAD_ITS ---
PROCEDURE: ANKLE MIN 3 VIEWS 11/09/2024 REASON FOR EXAM: TWISTED TECHNIQUE: 3 views of the right ankle COMPARISON: None. FINDINGS: Bones: No evidence of acute fracture. Diffuse osseous demineralization. Joints: No evidence of dislocation. Mild degenerative changes. Soft tissues: Soft tissues are unremarkable. Other: None. RAD/Ankle min 3 Views IMPRESSION: NO ACUTE FRACTURE OR DISLOCATION. Reading Location: [id number]
[2024-11-09 22:37] VITALS: BP 101/73; PULSE 81; RESP 18; TEMP 36.6; O2SAT 96
== END 2024-11-09 22:49 | disposition home or self-care (01) ==
PROVIDERS: Emergency Provider Emergency Medicine; Visit Provider Emergency Medicine
DX: S93.401A Sprain of unspecified ligament of right ankle, initial encounter (principal); G35 Multiple sclerosis; E66.01 Morbid (severe) obesity due to excess calories; Z68.42 Body mass index [BMI] 45.0-49.9, adult; E11.9 Type 2 diabetes mellitus without complications; Z79.4 Long term (current) use of insulin; X50.1XXA Overexertion from prolonged static or awkward postures, initial encounter; I10 Essential (primary) hypertension; Z79.82 Long term (current) use of aspirin; Z79.899 Other long term (current) drug therapy; Z87.891 Personal history of nicotine dependence
CPT/HCPCS: 73610; 99284